=== PATIENT | male | born 1960 | race Caucasian/White ===

== ENCOUNTER 2021-10-18 13:22 | Inpatient (IN) ==
--- NOTE | 2021-10-18 14:08 | Emergency Department Note ---
Impression & Plan Hypoxia, Pulmonary emboli, SOB (shortness of breath), Pleural effusion, Anemia, Elevated troponin ED Provider Note "NAME: ERAN BERMUDEZ AGE: 61 SEX: M : 1960 ARRIVES VIA: Walk-In INFORMANT: [Patient][] ED PROVIDER(S): [Clay Fairhcild MD] CHIEF COMPLAINT: Shortness of breath HISTORY OF PRESENT ILLNESS: The patient is a 61-year-old male with metastatic lung cancer. He recently returned from the [facility] after spending 2 weeks at that facility. The patient had a complete thoracic fusion. His wound dehisced and plastic surgery needed to be involved. He had a second surgery for a newer lesion that was found on the spine. He just returned from the [facility] 3 days ago. The patient is on IV vancomycin for the next 4 to 6 weeks for wound infection. Over the weekend, the patient was noticed to have a lower O2 saturation. He was around 87%. This persisted and was again noted today. The patient was sent for evaluation. The patient states that he does not really feel short of breath although, his thinks he looks short of breath. He is pale. He has back pain of course from the surgery but this is baseline as of late. He has not had fever. No cough or congestion. No urinary complaints. The patient is on Lovenox for DVT/PE. He states he has no diagnosed lung disease at baseline. Of note, his believes he had a pleural effusion diagnosed while at the [facility]. REVIEW OF SYSTEMS: See HPI for pertinent positives and negatives. A total of ten systems were reviewed and were otherwise negative. PMHx/PSHx: See Below SOCIAL HISTORY: See Below. PHYSICAL EXAM: GENERAL: Patient is in no acute distress. HEENT: No acute trauma, normocephalic atraumatic, mucous membranes moist, no nasal congestion, no scleral icterus. NECK: No stridor, no adenopathy, no meningismus, trachea is midline. LUNGS: Decreased breath sounds at the right base, no wheezing or rhonchi, no respiratory distress. HEART: Tachycardic with a regular rhythm, no murmurs. ABDOMEN: Soft, nontender, bowel sounds positive, no peritonitis. EXTREMITIES: No cyanosis, mild bilateral pedal edema, full range of motion of al l the joints without pain or difficulty, no signs for acute trauma. NEUROLOGIC: Oriented x 3, no acute motor or sensory deficits, no focal weakness. SKIN: No rash, no jaundice, no diaphoresis. Pale. Back: His thoracic wound still has some sutures in place. No surrounding erythema that would suggest infection. No drainage DIFFERENTIAL DIAGNOSIS: Reactive airway disease, pneumonia, pleural effusion, pneumothorax, COPD, CHF, infection, cardiac ischemia, pulmonary embolism, bronchitis, musculoskeletal, gastrointestinal, as well as other pathologies. EMERGENCY DEPARTMENT COURSE/PROCEDURES: ECG: Indication was shortness of breath. The ECG shows a sinus tachycardia with a rate of 109. There is an old inferior infarct. There is no ST elevation, no PVCs. The QTc is 455. Continuous Cardiac Monitoring: An order was placed for continuous cardiac monitoring. The monitor shows a rate of 111 with sinus tachycardia. Critical Care Note: I have personally spent 38 minutes of critical care time in the direct management of this patient. This includes bedside care, interpretation of diagnostic studies, and testing, discussion with consultants, patient, and family members, and other required patient management activities. This 38 minutes is in excess of all separately billable procedures. MEDICAL DECISION MAKING: There is no leukocytosis. The patient is anemic with a hemoglobin of 9.3. The patient states his counts have been low since his surgery. There is a normal platelet count. No coagulopathy.. No renal failure or significant electrolyte abnormality. No concerning liver enzyme elevation. ECG shows a sinus tachycardia, no obvious acute ischemia. Cardiac enzyme testing x1 is elevated. This elevation could be secondary to mismatch or potentially cardiac injury. COVID test returned negative. Chest x-ray shows a large right pleural effusion. Chest CT shows the pleural effusion as well as a left-sided pulmonary embolus. I talked to the patient about his findings. He is interested in having the pleural effusion drained. I spoke to Dr. Jordan of the ICU. The patient was seen in the ED by Dr. Jordan and will undergo a thoracentesis. The patient is going to be hospitalized after his procedure. His troponin can be trended. He will need anticoagulation given the PE findings. If his hemoglobin drops further, he may require transfusion. I spoke with the patient at length, I talked to case management. The on-call hospitalist was consulted. 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 Stage 4 lung cancer Surgical History History of ankle surgery Family History Father Throat cancer Denies family history of Ovarian cancer Prostate cancer Myocardial infarction Breast cancer Colorectal cancer Social History Smoking Status: Never smoker Second Hand Exposure: Yes; Hx Alcohol Use: Yes Hx Substance Use: No Preferred Language: Hebrew Visual Impairment: No Limitations Hearing Ability: Normal marital status: Current Living Situation: Spouse current occupational status: employed Feels Safe at Home: Yes Childhood Exposure to Second-Hand Smoke: Yes Dental Care, Regularly: Yes Physical Activity Frequency: Daily Seatbelt Use: sometimes Sunscreen Use: Yes Allergies Allergies Allergy/AdvReac Type Severity Reaction Status Date / Time gabapentin AdvReac Migraine Verified 09/15/21 13:53 Home Meds Home Medications Medication Instructions Recorded Confirmed acetaminophen 500 mg tablet 1,000 mg PO Q6H PRN 10/18/21 10/18/21 diazepam 5 mg tablet 5 mg PO TID PRN 10/18/21 10/18/21 docusate sodium 100 mg capsule 100 mg PO BID PRN 10/18/21 10/18/21 enoxaparin 40 mg/0.4 mL 40 mg SUBCUT DAILY 10/18/21 10/18/21 subcutaneous syringe lidocaine 5 % topical patch 1 patch TOPICAL DAILY PRN 10/18/21 10/18/21 (Lidoderm) methocarbamol 750 mg tablet 750 mg PO QID PRN 10/18/21 10/18/21 morphine 30 mg tablet,extended 30 mg PO Q12H 10/18/21 10/18/21 release (MS Contin) omeprazole 20 mg capsule,delayed 20 mg PO DAILY 10/18/21 10/18/21 release ondansetron 4 mg disintegrating 4 mg PO Q8H PRN 10/18/21 10/18/21 tablet oxycodone 10 mg tablet 10 - 15 mg PO Q6H PRN 10/18/21 10/18/21 vancomycin 1 gram/250 mL in 1 g IV Q24H 10/18/21 10/18/21 dextrose 5 % intravenous Previous Rx's Medication Instructions Recorded osimertinib 80 mg tablet (Tagrisso) 80 mg PO DAILY #30 tab 08/02/21 duloxetine 60 mg capsule,delayed 60 mg PO DAILY #90 cap 09/15/21 release Results & Data (ED) Vital Signs Vital Signs - 24 hr 10/18/21 13:31 10/18/21 13:53 10/18/21 13:55 Temperature 36.7 C Temperature Source Oral Pulse Rate 119 H Pulse Rate [Right Apical] 111 H Pulse Rate from SpO2 Sensor Pulse Rhythm [Right Apical] Respiratory Rate 22 20 Respiratory Effort / Characteristics Respiratory Depth Blood Pressure Blood Pressure [Left Arm] 136/78 Blood Pressure Mean Blood Pressure Mean [Left Arm] 97 Blood Pressure Position [Left Arm] Lying Pulse Oximetry 92 86 L 94 Oxygen Delivery Method Room Air Room Air Nasal Cannula Nasal Cannula Oxygen Flow Rate 3 Sepsis Recent Fever Within 48 Hours No Sepsis New/Unexplained Change in Mental Status No Sepsis Action Taken by Nursing No Action Required Oxygen Flow Rate - Titration 3 Pulse Oximetry Post Tiitration 94 10/18/21 14:03 10/18/21 14:30 10/18/21 15:00 Temperature Temperature Source Pulse Rate 39 L 113 H 111 H Pulse Rate [Right Apical] Pulse Rate from SpO2 Sensor 116 H 113 H 111 H Pulse Rhythm [Right Apical] Respiratory Rate 20 25 H 24 Respiratory Effort / Characteristics Respiratory Depth Blood Pressure 125/82 129/88 Blood Pressure [Left Arm] Blood Pressure Mean 96 101 Blood Pressure Mean [Left Arm] Blood Pressure Position [Left Arm] Pulse Oximetry 93 93 93 Oxygen Delivery Method Oxygen Flow Rate Sepsis Recent Fever Within 48 Hours Sepsis New/Unexplained Change in Mental Status Sepsis Action Taken by Nursing Oxygen Flow Rate - Titration Pulse Oximetry Post Tiitration 10/18/21 15:01 10/18/21 15:03 10/18/21 15:22 Temperature Temperature Source Pulse Rate Pulse Rate [Right Apical] Pulse Rate from SpO2 Sensor Pulse Rhythm [Right Apical] Regular Respiratory Rate Respiratory Effort / Characteristics Non-Labored Respiratory Depth Normal Blood Pressure Blood Pressure [Left Arm] Blood Pressure Mean Blood Pressure Mean [Left Arm] Blood Pressure Position [Left Arm] Pulse Oximetry 93 Oxygen Delivery Method Room Air Nasal Cannula Oxygen Flow Rate 3 Sepsis Recent Fever Within 48 Hours Sepsis New/Unexplained Change in Mental Status Sepsis Action Taken by Nursing Oxygen Flow Rate - Titration Pulse Oximetry Post Tiitration 10/18/21 15:30 10/18/21 15:45 10/18/21 16:00 Temperature Temperature Source Pulse Rate 115 H 113 H 110 H Pulse Rate [Right Apical] Pulse Rate from SpO2 Sensor 115 H 111 H 110 H Pulse Rhythm [Right Apical] Respiratory Rate 23 23 23 Respiratory Effort / Characteristics Respiratory Depth Blood Pressure Blood Pressure [Left Arm] Blood Pressure Mean Blood Pressure Mean [Left Arm] Blood Pressure Position [Left Arm] Pulse Oximetry 95 93 93 Oxygen Delivery Method Oxygen Flow Rate Sepsis Recent Fever Within 48 Hours Sepsis New/Unexplained Change in Mental Status Sepsis Action Taken by Nursing Oxygen Flow Rate - Titration Pulse Oximetry Post Tiitration 10/18/21 16:15 10/18/21 16:30 10/18/21 16:45 Temperature Temperature Source Pulse Rate 106 H 106 H 108 H Pulse Rate [Right Apical] Pulse Rate from SpO2 Sensor 104 H 107 H 106 H Pulse Rhythm [Right Apical] Respiratory Rate 21 15 22 Respiratory Effort / Characteristics Respiratory Depth Blood Pressure Blood Pressure [Left Arm] Blood Pressure Mean Blood Pressure Mean [Left Arm] Blood Pressure Position [Left Arm] Pulse Oximetry 91 90 92 Oxygen Delivery Method Oxygen Flow Rate Sepsis Recent Fever Within 48 Hours Sepsis New/Unexplained Change in Mental Status Sepsis Action Taken by Nursing Oxygen Flow Rate - Titration Pulse Oximetry Post Tiitration 10/18/21 17:00 Temperature Temperature Source Pulse Rate 112 H Pulse Rate [Right Apical] Pulse Rate from SpO2 Sensor 112 H Pulse Rhythm [Right Apical] Respiratory Rate 22 Respiratory Effort / Characteristics Respiratory Depth Blood Pressure Blood Pressure [Left Arm] Blood Pressure Mean Blood Pressure Mean [Left Arm] Blood Pressure Position [Left Arm] Pulse Oximetry 91 Oxygen Delivery Method Oxygen Flow Rate Sepsis Recent Fever Within 48 Hours Sepsis New/Unexplained Change in Mental Status Sepsis Action Taken by Nursing Oxygen Flow Rate - Titration Pulse Oximetry Post Tiitration Home Medications Current Medication List: was personally reviewed by me Laboratory Data Attestation: I reviewed the patient's lab results. Result diagrams: 10/18/21 14:30 10/18/21 14:30 Lab Results 10/18/21 10/18/21 10/18/21 Range/Units 14:30 14:30 14:30 WBC 8.84 (4.8-10.8) K/ul RBC 3.40 L (4.63-6.08) M/uL Hgb 9.3 L (14.0-18.0) g/dl POC Hgb (14.0-18.0) g/dl Hct 29.6 L (40.1-51.0) % POC Hct (42-52) % MCV 87.1 (80.0-100.0) fL MCH 27.4 (25.0-34.0) pg MCHC 31.4 L (32.0-36.0) g/dL RDW Std Deviation 47.5 H (36.4-46.3) fL RDW Coeff of Sudhakar 14.8 H (11.5-14.5) % Plt Count 261 (130-400) K/uL MPV 9.3 L (9.4-12.4) fL Immature Gran % (Auto) 1.0 % Neut % (Auto) 75.8 % Lymph % (Auto) 8.5 % [place] % (Auto) 9.2 % Eos % (Auto) 4.9 % Baso % (Auto) 0.6 % Neut # (Auto) 6.71 H (1.4-6.5) K/uL Lymph # (Auto) 0.75 L (1.2-3.4) K/uL [place] # (Auto) 0.81 (0.24-0.82) K/uL Eos # (Auto) 0.43 (0-0.50) K/uL Baso # (Auto) 0.05 (0-0.2) K/uL Immature Gran # (Auto) 0.09 H (0.00-0.02) K/uL PT 11.3 (9.0-12.0) Seconds INR 1.1 (0.9-1.1) APTT 33.2 H (21.0-31.0) Seconds PTT Ratio 1.2 POC Sodium (135-144) mmol/L Sodium 137 (136-145) mmol/L POC Potassium (3.3-5.0) mmol/L Potassium 3.8 (3.5-5.1) mmol/L POC Chloride (101-112) mmol/L Chloride 101 (98-107) mmol/L Carbon Dioxide 29 (21-32) mmol/L POC Total CO2 (24-31) mmol/L Anion Gap 7 (3-11) POC Anion Gap (16-25) mmol/L POC BUN (7-18) mg/dl BUN 13 (6-23) mg/dl Creatinine 0.63 (0.6-1.4) mg/dl POC Creatinine (0.6-1.3) mg/dl Est Cr Clr Drug Dosing Not Reportable Est GFR ( Amer) 122.4 ml/min Est GFR (Non-Af Amer) 105.6 ml/min BUN/Creatinine Ratio 20.6 H (10-20) Glucose 95 (70-99(Fasting)) mg/dl POC Glucose (other) (70-99) mg/dl Calcium 8.5 (8.5-10.1) mg/dl POC Ioniz Calcium Pablo (1.12-1.32) mmol/l Magnesium 1.8 (1.7-2.4) mg/dl Total Bilirubin 0.5 (0.2-1.0) mg/dl AST 10 L (13-39) U/L ALT 8 (7-52) U/L Alkaline Phosphatase 82 (34-104) U/L Troponin I High Sens 125.3 H* (0-20) pg/ml Total Protein 5.8 L (6.0-8.3) gm/dl Albumin 3.3 L (3.4-5.0) gm/dl Globulin 2.5 (2.5-4.0) gm/dl Albumin/Globulin Ratio 1.3 (0.9-2) SARS-CoV-2, RNA, NAAT (NEGATIVE) 10/18/21 10/18/21 Range/Units 14:35 14:59 WBC (4.8-10.8) K/ul RBC (4.63-6.08) M/uL Hgb (14.0-18.0) g/dl POC Hgb 9.5 L (14.0-18.0) g/dl Hct (40.1-51.0) % POC Hct 28 L (42-52) % MCV (80.0-100.0) fL MCH (25.0-34.0) pg MCHC (32.0-36.0) g/dL RDW Std Deviation (36.4-46.3) fL RDW Coeff of Sudhakar (11.5-14.5) % Plt Count (130-400) K/uL MPV (9.4-12.4) fL Immature Gran % (Auto) % Neut % (Auto) % Lymph % (Auto) % [place] % (Auto) % Eos % (Auto) % Baso % (Auto) % Neut # (Auto) (1.4-6.5) K/uL Lymph # (Auto) (1.2-3.4) K/uL [place] # (Auto) (0.24-0.82) K/uL Eos # (Auto) (0-0.50) K/uL Baso # (Auto) (0-0.2) K/uL Immature Gran # (Auto) (0.00-0.02) K/uL PT (9.0-12.0) Seconds INR (0.9-1.1) APTT (21.0-31.0) Seconds PTT Ratio POC Sodium 137 (135-144) mmol/L Sodium (136-145) mmol/L POC Potassium 3.8 (3.3-5.0) mmol/L Potassium (3.5-5.1) mmol/L POC Chloride 97 L (101-112) mmol/L Chloride (98-107) mmol/L Carbon Dioxide (21-32) mmol/L POC Total CO2 29 (24-31) mmol/L Anion Gap (3-11) POC Anion Gap 16.0 (16-25) mmol/L POC BUN 12 (7-18) mg/dl BUN (6-23) mg/dl Creatinine (0.6-1.4) mg/dl POC Creatinine 0.6 (0.6-1.3) mg/dl Est Cr Clr Drug Dosing Est GFR ( Amer) ml/min Est GFR (Non-Af Amer) ml/min BUN/Creatinine Ratio (10-20) Glucose (70-99(Fasting)) mg/dl POC Glucose (other) 98 (70-99) mg/dl Calcium (8.5-10.1) mg/dl POC Ioniz Calcium Pablo 1.18 (1.12-1.32) mmol/l Magnesium (1.7-2.4) mg/dl Total Bilirubin (0.2-1.0) mg/dl AST (13-39) U/L ALT (7-52) U/L Alkaline Phosphatase (34-104) U/L Troponin I High Sens (0-20) pg/ml Total Protein (6.0-8.3) gm/dl Albumin (3.4-5.0) gm/dl Globulin (2.5-4.0) gm/dl Albumin/Globulin Ratio (0.9-2) SARS-CoV-2, RNA, NAAT NEGATIVE (NEGATIVE) Administered Medications Discontinued Medications Ioversol (Optiray 320 125ml) 120 ml IV ONCE ONE Stop: 10/18/21 15:17 Last Admin: 10/18/21 15:23 Dose: 120 ml Documented by: [id number] Imaging Data Radiologist's Impression: Chest CTA 10/18/21 14:00 CT angio chest PE protocol CLINICAL HISTORY: PE TECHNIQUE: Multidetector row helical CT of the chest was performed with angiographic protocol. Coronal and sagittal reformations were obtained. Coronal and sagittal MIPS were obtained from the axial data set and were submitted for review. Automated dose lowering techniques and/or adjustment according to patient size were utilized for this exam. CT DOSE: 469.21 mGy.cm Comparison: Comparison is made to CT chest 07/03/2021 FINDINGS: Lungs and pleura: There is a large right pleural effusion, increased from prior exam. There is associated atelectasis but no nonenhancing regions are seen to suggest pneumonia. There is a soft tissue density in the right upper lobe, similar in appearance to prior exam, measuring 38 x 30 mm. Questionable satellite nodules are seen. Stable 7 mm nodule in the left upper lobe (series 4 image 158). Heart and pericardium: Heart size is normal. No pericardial effusion. Vessels: Moderate atherosclerotic changes in the aorta and coronary arteries. There is a segmental/subsegmental pulmonary embolus in the left upper lobe (image 154). Mediastinum and maribell: Subcentimeter lymph nodes are seen. Chest wall and lower neck: Unremarkable. Abdomen: Unremarkable. Bones: Posterior fixation hardware is seen throughout the spine. A few vertebral levels are characterized by destruction with soft tissue mass. In addition, there are several lytic foci in the skeleton. IMPRESSION: 1. A segmental/subsegmental pulmonary embolus is in the left upper lobe. No additional pulmonary emboli are seen. 2. Large right pleural effusion, increased from prior exam. 3. No evidence of pneumonia. 4. Redemonstration of right upper lobe soft tissue density compatible with malignancy. There are questionable satellite nodules and a stable 7 mm nodule in left upper lobe, of uncertain significance although metastatic disease cannot be excluded. Subcentimeter mediastinal lymph nodes are seen, unchanged from prior exam. 5. Numerous lytic lesions are seen in the thoracic spine with pathologic fractures, bridged by fixation hardware. ACT 112: Negative or not required by law. Electronically signed by: Reinier Aguayo M.D. 10/18/2021 3:44 PM Chest X-Ray 10/18/21 14:00 XR chest 1V portable CLINICAL HISTORY: SOB TECHNIQUE: Single frontal radiograph of the chest was obtained. Comparison: Comparison is made to rib series 03/23/2021 FINDINGS: A right PICC terminates in the cavoatrial junction. Interval placement of extensive thoracic spinal fixation hardware. The cardiomediastinal silhouette is obscured. A tortuous aorta is again seen. Interval development of right large pleural effusion. The left lung is clear. Right upper lung density cannot be excluded. No evidence of pleural effusion or pneumothorax. IMPRESSION: Interval development of a large right pleural effusion. Right upper lung density corresponding to previously noted mass cannot be excluded. In the right lower lung there is atelectasis with or without superimposed aspiration/pneumonia. ACT 112: Negative or not required by law. Electronically signed by: Reinier Aguayo M.D. 10/18/2021 3:00 PM Discharge Plan Visit Data Chief Complaint: Shortness of Breath/Dyspnea Stated Complaint: SOB,LUNG CA,RECENT BACK SURG ED Provider: Clay Fairchild Discharge Problem: Hypoxia, Pulmonary emboli, SOB (shortness of breath), Pleural effusion, Anemia, Elevated troponin Patient Disposition: Admitted As Inpatient Condition: Fair Forms Stand Alone Forms: [facility] Prescriptions Prescriptions: No Action duloxetine 60 mg capsule,delayed release(DR/EC) 60 mg PO DAILY Qty: 90 RF: 1 Tagrisso 80 mg tablet 80 mg PO DAILY Qty: 30 RF: 0 acetaminophen 500 mg Tablet 1,000 mg PO Q6H PRN (Reason: Mild Pain (Scale Score 1-4)) RF: 0 methocarbamol 750 mg Tablet 750 mg PO QID PRN (Reason: Muscle Spasm) RF: 0 enoxaparin 40 mg/0.4 mL Syringe 40 mg SUBCUT DAILY RF: 0 morphine [MS Contin] 30 mg Tablet Extended Release 30 mg PO Q12H RF: 0 omeprazole 20 mg Capsule,Delayed Release(Dr/Ec) 20 mg PO DAILY RF: 0 oxycodone 10 mg tablet 10 - 15 mg PO Q6H PRN (Reason: pain) RF: 0 diazepam 5 mg Tablet 5 mg PO TID PRN (Reason: muscle spasms) RF: 0 docusate sodium 100 mg Capsule 100 mg PO BID PRN (Reason: Constipation) RF: 0 ondansetron 4 mg Tablet,Disintegrating 4 mg PO Q8H PRN (Reason: Nausea) RF: 0 lidocaine [Lidoderm] 5 % Adhesive Patch,Medicated 1 patch TOPICAL DAILY PRN (Reason: Pain) RF: 0 vancomycin in dextrose 5 % 1 gram/250 mL Solution 1 g IV Q24H RF: 0 Referrals Referrals: Beatriz East MD [Primary Care Provider] -
[2021-10-18 14:46] LABS: Basophils # (auto) 0.05 K/uL (0-0.2); Basophils % (auto) 0.6 %; Eosinophils # (auto) 0.43 K/uL (0-0.50); Eosinophils % (auto) 4.9 %; Hematocrit (blood only) 29.6 % (40.1-51.0); Hemoglobin 9.3 g/dl (14.0-18.0); Immature Granulocytes # (auto) 0.09 K/uL (0.00-0.02); Lymphocytes # (auto) 0.75 K/uL (1.2-3.4); Lymphocytes % (auto) 8.5 %; Mean Corpuscular Hemoglobin 27.4 pg (25.0-34.0); Mean Corpuscular Hgb Conc 31.4 g/dL (32.0-36.0); Mean Corpuscular Volume 87.1 fL (80.0-100.0); Mean Platelet Volume 9.3 fL (9.4-12.4); Monocytes # (auto) 0.81 K/uL (0.24-0.82); Monocytes % (auto) 9.2 %; Neutrophils # (auto) 6.71 K/uL (1.4-6.5); Neutrophils % (auto) 75.8 %; Platelet Count 261 K/uL (130-400); RDW Coefficient of Variation 14.8 % (11.5-14.5); RDW Standard Deviation 47.5 fL (36.4-46.3); White Blood Count 8.84 K/ul (4.8-10.8)
[2021-10-18 14:53] LABS: iSTAT Creatinine 0.6 mg/dl (0.6-1.3); iSTAT Hemoglobin 9.5 g/dl (14.0-18.0); iSTAT Ionized Calcium 1.18 mmol/l (1.12-1.32); iSTAT Potassium 3.8 mmol/L (3.3-5.0)
--- NOTE | 2021-10-18 15:01 | XRay Report ---
XR chest 1V portable CLINICAL HISTORY: SOB TECHNIQUE: Single frontal radiograph of the chest was obtained. Comparison: Comparison is made to rib series 03/23/2021 FINDINGS: A right PICC terminates in the cavoatrial junction. Interval placement of extensive thoracic spinal f ixation hardware. The cardiomediastinal silhouette is obscured. A tortuous aorta is again seen. Inter josh development of right large pleural effusion. The left lung is clear. Right upper lung density can not be excluded. No evidence of pleural effusion or pneumothorax. IMPRESSION: Interval development of a large right pleural effusion. Right upper lung density corresponding to pre viously noted mass cannot be excluded. In the right lower lung there is atelectasis with or without s uperimposed aspiration/pneumonia. ACT 112: Negative or not required by law. Electronically signed by: Reinier Aguayo M.D. 10/18/2021 3:00 PM
[2021-10-18 15:05] LABS: Alanine Aminotransferase 8 U/L (7-52); Albumin Globulin Ratio 1.3 (0.9-2); Albumin Level 3.3 gm/dl (3.4-5.0); Alkaline Phosphatase 82 U/L (34-104); Anion Gap 7 (3-11); Aspartate Aminotransferase 10 U/L (13-39); BUN Creatinine Ratio 20.6 (10-20); Bilirubin,Total 0.5 mg/dl (0.2-1.0); Blood Urea Nitrogen 13 mg/dl (6-23); Calcium 8.5 mg/dl (8.5-10.1); Carbon Dioxide 29 mmol/L (21-32); Chloride 101 mmol/L (98-107); Est GFR (African American) 122.4 ml/min; Est GFR (Non-African American) 105.6 ml/min; Globulin 2.5 gm/dl (2.5-4.0); Glucose 95 mg/dl (70-99(Fasting)); Magnesium 1.8 mg/dl (1.7-2.4); Potassium 3.8 mmol/L (3.5-5.1); Sodium 137 mmol/L (136-145); Total Protein 5.8 gm/dl (6.0-8.3)
[2021-10-18] MEDS ORDERED: OPTIRAY 320 125ml IV ONE (15:16)
[2021-10-18 15:24] LABS: INR 1.1 (0.9-1.1); Partial Thromboplastin Ratio 1.2; Partial Thromboplastin Time 33.2 Seconds (21.0-31.0); Prothrombin Time 11.3 Seconds (9.0-12.0)
[2021-10-18 15:33] LABS: Troponin I High Sensitivity 125.3 pg/ml (0-20)
--- NOTE | 2021-10-18 15:45 | CT Scan Report ---
CT angio chest PE protocol CLINICAL HISTORY: PE TECHNIQUE: Multidetector row helical CT of the chest was performed with angiographic protocol. Payne l and sagittal reformations were obtained. Coronal and sagittal MIPS were obtained from the axial marcell a set and were submitted for review. Automated dose lowering techniques and/or adjustment according to patient size were utilized for this exam. CT DOSE: 469.21 mGy.cm Comparison: Comparison is made to CT chest 07/03/2021 FINDINGS: Lungs and pleura: There is a large right pleural effusion, increased from prior exam. There is associ ated atelectasis but no nonenhancing regions are seen to suggest pneumonia. There is a soft tissue de nsity in the right upper lobe, similar in appearance to prior exam, measuring 38 x 30 mm. Questionabl e satellite nodules are seen. Stable 7 mm nodule in the left upper lobe (series 4 image 158). Heart and pericardium: Heart size is normal. No pericardial effusion. Vessels: Moderate atherosclerotic changes in the aorta and coronary arteries. There is a segmental/murphy bsegmental pulmonary embolus in the left upper lobe (image 154). Mediastinum and maribell: Subcentimeter lymph nodes are seen. Chest wall and lower neck: Unremarkable. Abdomen: Unremarkable. Bones: Posterior fixation hardware is seen throughout the spine. A few vertebral levels are character ized by destruction with soft tissue mass. In addition, there are several lytic foci in the skeleton. IMPRESSION: 1. A segmental/subsegmental pulmonary embolus is in the left upper lobe. No additional pulmonary emb layla are seen. 2. Large right pleural effusion, increased from prior exam. 3. No evidence of pneumonia. 4. Redemonstration of right upper lobe soft tissue density compatible with malignancy. There are que stionable satellite nodules and a stable 7 mm nodule in left upper lobe, of uncertain significance al though metastatic disease cannot be excluded. Subcentimeter mediastinal lymph nodes are seen, unchang ed from prior exam. 5. Numerous lytic lesions are seen in the thoracic spine with pathologic fractures, bridged by fixat ion hardware. ACT 112: Negative or not required by law. Electronically signed by: Reinier Aguayo M.D. 10/18/2021 3:44 PM
[2021-10-18] MEDS ORDERED: fentaNYL citrate 100 MCG/2 ML VIAL IV ONE (17:59)
--- NOTE | 2021-10-18 18:16 | Procedure Note ---
Procedure Note Date of Service October 18, 2021 Note Procedure Date: noted above Procedure: Thoracentesis Pre-procedure Diagnosis: Acute hypoxic respiratory failure, right adenocarcinoma of the lung, right pleural effusion, acute on chronic pulmonary embolism Post-procedure Diagnosis: same as above Prior to Procedure: Informed Consent: The risks, benefits, indications, potential complications, and alternatives were explained to the patient, his , his sister and niece and informed consent obtained. Attending Staff: Iron Jordan DO Resident/Physician Evaporator Operator Molasses: Ata Aguayo Indications: The patient is a 61-year-old male patient with right-sided pleural effusion status post recent spinal rodding, known history of pulmonary embolism on prophylactic anticoagulation, metastatic adenocarcinoma of the lung requiring thoracentesis. We discussed risks and benefits including temporary catheter placement for continued pleural drainage should there be infection versus loculation. Concern of repeat procedures in case there is infection. Causing bleeding that may require surgical intervention. The identity of the patient was confirmed and a bedside time out was performed. Description of Procedure: Patient positioned, the right posterior axillary line was prepped with chlorhexidine and draped in usual sterile fashion. Ultrasound guidance was used and appropriate fluid pocket was identified. 4 mL of 1% Lidocaine without epinephrine was used to anesthetize the area. A needle was introduced into the pleural space over the superior margin of the rib with care and fluid removed and sent for analysis. Fluid was removed. Patient started to experience mild cough and the procedure was discontinued and the catheter was removed. Total Fluid Removed: 2000 ml Color of Fluid: Sanguinous Sent for: Gram Stain, culture, cell count, glucose, protein, LDH, pleural pH Complications: None apparent Estimated blood loss: None Post procedure chest x-ray has been reviewed, no postprocedural pneumothorax Coding CPT Codes Pulmonary/Thoracic - Pulmonary and Thoracic: 01885 Thoracentesis w/o imaging ([id number]) [facility] [place] Procedure Codes (Charges) Pulmonary/Thoracic Procedure 1: Pulmonary and Thoracic: 73364 Thoracentesis w/o imaging
[2021-10-18] MEDS ORDERED: MoRPHine SULFATE CR 15 MG TABCR PO STA (18:48)
--- NOTE | 2021-10-18 19:10 | XRay Report ---
SINGLE VIEW CHEST CLINICAL HISTORY: Status post thoracentesis FINDINGS: An AP, portable, semierect chest radiograph is compared to performed earlier the same day . A right PICC line is unchanged in position. The heart is mildly enlarged. There is a small residual right pleural effusion with bibasilar scarring/atelectasis. No airspace consolidation is see n typical for pneumonia. Loculated fluid is again seen in the right upper lobe lung the major fissure . No pneumothorax is identified. The bony thorax is grossly intact. Extensive spinal fusion hardware is in place IMPRESSION: 1. No pneumothorax is identified post procedure. 2. There is a small residual right pleural effusion and bibasilar atelectasis ACT 112: Negative or not required by law. Electronically signed by: Clay Neri M.D. 10/18/2021 7:09 PM
[2021-10-18] MEDS: LIDOCAINE 5% 1 PATCH TD SCH (19:19)
[2021-10-18 19:30] LABS: Glucose Pleural Fluid < 10 mg/dl; LDH Pleural Fluid 956 U/L; Total Protein Pleural Fluid 3.9 gm/dl
[2021-10-18] MEDS ORDERED: MoRPHine SULFATE 4 MG/ML 1 ML CARP\\VIAL IV STA (19:39)
--- NOTE | 2021-10-18 19:41 | History & Physical Report ---
Date of Service October 18, 2021 Assessment & Plan (1) Pleural effusion: Plan: Acute on chronic- increased since June with compressive atelectasis - Thoracenteses completed by Dr. Jordan through EMD consultation - 2Liters drained- await cytology and cultures - No postoperative pneumothorax or pulmonary edema - Pulmonary consultation appreciated - Can also follow up with [facility] (2) Pulmonary embolism: Plan: Acute on Chronic- with IVC filter placement as well as reported Lower extremity DVT during hospitalization at - With new PE in left upper lobe segmental and subsegmental - Thoracic spine surgery -14 of October- Xarelto has been hold since that time - IVC filter in place to prevent large PE resulting in mortality - Could discuss with for re-initiation of anticoagulation in current setting with PE with IVC filter (3) S/P IVC filter: Plan: As above - placed at plan removal in 6 months reported - as above (4) Elevated troponin: Plan: Routinely drawn in the EMD elevated at 125 - no acute ST elevation no chest pain complaints - likely secondary to pulmonary stress, dyspnea and hypoxia type II demand - trend HScTNI now and then in AM pending results (5) Spinal cord compression 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: Plan: As above- resected and biopsied 09-14 (6) Cancer related pain: Plan: Home regimen is keeping patient comfortable as long as he is consistent - Continue tylenol, Lidocaine patches, Oxycodone 15mg q6 prn, MS extended 30mg q12 - Valium 5mg PO prn muscle spasms (7) 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 Receives majority of his cancer care at [facility], PE, DVT, IVC filter placement, Thoracic spine surgery at [facility] August 2021, wound evisceration 09/29 with wound vac and PICC placement, 13 October- Lumbar tumor resection/biopsy and IVC filter placement. He comes to the EMD today for complaints of dyspnea. He was noted to have increase in right sided pleural effusion, this was compared to his scan done in June 2021. This was drained in the EMD by Dr. Jordan for 2 Liters of serous/sang fluid. Testing is pending. The patient also had a CTA of the chest completed which noted a left upper lobe segmental/subsegmental PE. He also had routine labs drawn which included a HScTNI for dyspnea by [facility]. This was elevated to 125.3. His ECG is without acute ST elevation and no symptoms of chest pain. He is on maintenance therapy of Osimertinib. Patient had PE noted in 03/30 and was placed on Xarelto at that time with his workup and cancer diagnosis. This was started in the setting of worsening cervical and thoracic back pain. He had his lung biopsy and bronchoscopy at [facility]. He had repeat CT scan done in June which did not note any PE, he continued with his upper spine surgery in September this was complicated by above, with wound evisceration requiring wound-vac placement and PICC placement for empiric Vancomycin therapy. While that was ongoing they noted lumbar mass/lesion which was biopsied and resected in October 13. He also had IVC placed at that time with plan to remove in 6 months,as they noted lower extremity VTE during that stay. He was discharged on DVT/PE Lovenox for further prevention. For his chronic back pain he is on Morphine Extended release 30mg q12 and with breakthrough of oxycodone 10-15 mg every 6 hours as needed. For adjunctive therapy he is receiving Tylenol, lidocaine patches, which he feels are effective and has Valium and/or Robaxin at home for muscle spasms. He does not use the Robaxin if he takes the Valium. Oncologist is Dr. Mosqueda with [facility]. Pressley His COVID test on admission is: NEGATIVE Allergies Allergy/AdvReac Type Severity Reaction Status Date / Time gabapentin AdvReac Migraine Verified 09/15/21 13:53 Home Medications Medication Instructions Recorded Confirmed Type osimertinib 80 mg tablet (Tagrisso) 80 mg PO DAILY #30 tab 08/02/21 10/18/21 Rx duloxetine 60 mg capsule,delayed 60 mg PO DAILY #90 cap 09/15/21 10/18/21 Rx release acetaminophen 500 mg tablet 1,000 mg PO Q6H PRN 10/18/21 10/18/21 History diazepam 5 mg tablet 5 mg PO TID PRN 10/18/21 10/18/21 History docusate sodium 100 mg capsule 100 mg PO BID PRN 10/18/21 10/18/21 History enoxaparin 40 mg/0.4 mL 40 mg SUBCUT DAILY 10/18/21 10/18/21 History subcutaneous syringe lidocaine 5 % topical patch 1 patch TOPICAL DAILY PRN 10/18/21 10/18/21 History (Lidoderm) methocarbamol 750 mg tablet 750 mg PO QID PRN 10/18/21 10/18/21 History morphine 30 mg tablet,extended 30 mg PO Q12H 10/18/21 10/18/21 History release (MS Contin) omeprazole 20 mg capsule,delayed 20 mg PO DAILY 10/18/21 10/18/21 History release ondansetron 4 mg disintegrating 4 mg PO Q8H PRN 10/18/21 10/18/21 History tablet oxycodone 10 mg tablet 10 - 15 mg PO Q6H PRN 10/18/21 10/18/21 History vancomycin 1 gram/250 mL in 1 g IV Q24H 10/18/21 10/18/21 History dextrose 5 % intravenous Past Med/Surg History Medical History (Updated 10/18/21 @ 19:27 by DIRK Rincon) 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 Bone metastases Pleural effusion Pulmonary embolism Spinal cord compression 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 Stage 4 lung cancer Surgical History (Updated 10/18/21 @ 19:21 by DIRK Rincon) History of ankle surgery S/P IVC filter Family History Father Throat cancer Denies family history of Ovarian cancer Prostate cancer Myocardial infarction Breast cancer Colorectal cancer Social History Smoking Status: Never smoker Second Hand Exposure: Yes; Hx Alcohol Use: Yes Hx Substance Use: No Preferred Language: Spanish Visual Impairment: No Limitations Hearing Ability: Normal marital status: Current Living Situation: Spouse current occupational status: employed Feels Safe at Home: Yes Childhood Exposure to Second-Hand Smoke: Yes Dental Care, Regularly: Yes Physical Activity Frequency: Daily Seatbelt Use: sometimes Sunscreen Use: Yes Review of Systems Review of Systems: REVIEW OF SYSTEMS: Constitutional: No fever, sweats or chills Eyes: No diplopia, no worsening or blurred vision ENT: normal hearing, no trouble swallowing Respiratory: (+) dyspnea with exertion, cough, sputum, Cardiovascular: (+) lower extremity edema, No chest pain, tightness or palpi tations Abdomen: No pain, nausea, vomiting, diarrhea or constipation Musculoskeletal: (+) joint pain Neurologic: No weakness, numbness/tingling, or balance problems Psychiatric: No anxiety or depression Skin: No rash or itch Physical Exam Physical Exam: PHYSICAL EXAM: General: awake, alert, no apparent distress Head: Normocephalic, atraumatic ENT: PERRLA, EOMI, no pharyngeal exudate, mucous membranes moist Neuro: AAO x 3, speech clear and appropriate, strength intact bilaterally 5/5, sensation intact and equal all extremities and dermatomes, no pronator drift Chest: equal rise and fall of the chest, no accessory muscle use, no heaves or thrills, decreased in the bases bilaterally Cardiac: Regular rate and rhythm, telemetry reviewed, skin warm dry, cap refill <3 seconds, peripheral pulses +2 no JVD, no murmur, no edema GI: NABS x 4 quadrants, soft, nontender to palpation, no rebound, guarding or tenderness : Spontaneously voiding, no pain, no CVA tenderness, Psych: Normal mood and affect Skin: scar to back healing, PICC line dressing intact Results & Data Results & Data ([facility]) Vital Signs (Past 12 Hours) Vital Signs Temp Pulse Pulse Resp BP BP Pulse Ox 10/18/21 17:00 112 H 22 91 10/18/21 16:45 108 H 22 92 10/18/21 16:30 106 H 15 90 10/18/21 16:15 106 H 21 91 10/18/21 16:00 110 H 23 93 10/18/21 15:45 113 H 23 93 10/18/21 15:30 115 H 23 95 10/18/21 15:03 93 10/18/21 15:00 111 H 24 129/88 93 10/18/21 14:30 113 H 25 H 125/82 93 10/18/21 14:03 39 L 20 93 10/18/21 13:55 111 H 20 136/78 94 10/18/21 13:53 86 L 10/18/21 13:31 36.7 C 119 H 22 92 Laboratory Results Abnormal lab results 10/18/21 10/18/21 10/18/21 Range/Units 14:30 14:30 14:30 RBC 3.40 L (4.63-6.08) M/uL Hgb 9.3 L (14.0-18.0) g/dl POC Hgb (14.0-18.0) g/dl Hct 29.6 L (40.1-51.0) % POC Hct (42-52) % MCHC 31.4 L (32.0-36.0) g/dL RDW Std Deviation 47.5 H (36.4-46.3) fL RDW Coeff of Sudhakar 14.8 H (11.5-14.5) % MPV 9.3 L (9.4-12.4) fL Neut # (Auto) 6.71 H (1.4-6.5) K/uL Lymph # (Auto) 0.75 L (1.2-3.4) K/uL Immature Gran # (Auto) 0.09 H (0.00-0.02) K/uL APTT 33.2 H (21.0-31.0) Seconds POC Chloride (101-112) mmol/L BUN/Creatinine Ratio 20.6 H (10-20) AST 10 L (13-39) U/L Troponin I High Sens 125.3 H* (0-20) pg/ml Total Protein 5.8 L (6.0-8.3) gm/dl Albumin 3.3 L (3.4-5.0) gm/dl 10/18/21 Range/Units 14:35 RBC (4.63-6.08) M/uL Hgb (14.0-18.0) g/dl POC Hgb 9.5 L (14.0-18.0) g/dl Hct (40.1-51.0) % POC Hct 28 L (42-52) % MCHC (32.0-36.0) g/dL RDW Std Deviation (36.4-46.3) fL RDW Coeff of Sudhakar (11.5-14.5) % MPV (9.4-12.4) fL Neut # (Auto) (1.4-6.5) K/uL Lymph # (Auto) (1.2-3.4) K/uL Immature Gran # (Auto) (0.00-0.02) K/uL APTT (21.0-31.0) Seconds POC Chloride 97 L (101-112) mmol/L BUN/Creatinine Ratio (10-20) AST (13-39) U/L Troponin I High Sens (0-20) pg/ml Total Protein (6.0-8.3) gm/dl Albumin (3.4-5.0) gm/dl Diagnostic Findings Chest CTA 10/18/21 14:00 CT angio chest PE protocol CLINICAL HISTORY: PE TECHNIQUE: Multidetector row helical CT of the chest was performed with angiographic protocol. Coronal and sagittal reformations were obtained. Coronal and sagittal MIPS were obtained from the axial data set and were submitted for review. Automated dose lowering techniques and/or adjustment according to patient size were utilized for this exam. CT DOSE: 469.21 mGy.cm Comparison: Comparison is made to CT chest 07/03/2021 FINDINGS: Lungs and pleura: There is a large right pleural effusion, increased from prior exam. There is associated atelectasis but no nonenhancing regions are seen to suggest pneumonia. There is a soft tissue density in the right upper lobe, similar in appearance to prior exam, measuring 38 x 30 mm. Questionable satellite nodules are seen. Stable 7 mm nodule in the left upper lobe (series 4 image 158). Heart and pericardium: Heart size is normal. No pericardial effusion. Vessels: Moderate atherosclerotic changes in the aorta and coronary arteries. There is a segmental/subsegmental pulmonary embolus in the left upper lobe (image 154). Mediastinum and maribell: Subcentimeter lymph nodes are seen. Chest wall and lower neck: Unremarkable. Abdomen: Unremarkable. Bones: Posterior fixation hardware is seen throughout the spine. A few vertebral levels are characterized by destruction with soft tissue mass. In addition, there are several lytic foci in the skeleton. IMPRESSION: 1. A segmental/subsegmental pulmonary embolus is in the left upper lobe. No additional pulmonary emboli are seen. 2. Large right pleural effusion, increased from prior exam. 3. No evidence of pneumonia. 4. Redemonstration of right upper lobe soft tissue density compatible with malignancy. There are questionable satellite nodules and a stable 7 mm nodule in left upper lobe, of uncertain significance although metastatic disease cannot be excluded. Subcentimeter mediastinal lymph nodes are seen, unchanged from prior exam. 5. Numerous lytic lesions are seen in the thoracic spine with pathologic fractures, bridged by fixation hardware. ACT 112: Negative or not required by law. Electronically signed by: Reinier Aguayo M.D. 10/18/2021 3:44 PM Chest X-Ray 10/18/21 14:00 XR chest 1V portable CLINICAL HISTORY: SOB TECHNIQUE: Single frontal radiograph of the chest was obtained. Comparison: Comparison is made to rib series 03/23/2021 FINDINGS: A right PICC terminates in the cavoatrial junction. Interval placement of extensive thoracic spinal fixation hardware. The cardiomediastinal silhouette is obscured. A tortuous aorta is again seen. Interval development of right large pleural effusion. The left lung is clear. Right upper lung density cannot be excluded. No evidence of pleural effusion or pneumothorax. IMPRESSION: Interval development of a large right pleural effusion. Right upper lung density corresponding to previously noted mass cannot be excluded. In the right lower lung there is atelectasis with or without superimposed aspiration/pneumonia. ACT 112: Negative or not required by law. Electronically signed by: Reinier Aguayo M.D. 10/18/2021 3:00 PM Chest X-Ray 10/18/21 17:59 SINGLE VIEW CHEST CLINICAL HISTORY: Status post thoracentesis FINDINGS: An AP, portable, semierect chest radiograph is compared to performed earlier the same day 10/18/2021. A right PICC line is unchanged in position. The heart is mildly enlarged. There is a small residual right pleural effusion with bibasilar scarring/atelectasis. No airspace consolidation is seen typical for pneumonia. Loculated fluid is again seen in the right upper lobe lung the major fissure. No pneumothorax is identified. The bony thorax is grossly intact. Extensive spinal fusion hardware is in place IMPRESSION: 1. No pneumothorax is identified post procedure. 2. There is a small residual right pleural effusion and bibasilar atelectasis ACT 112: Negative or not required by law. Electronically signed by: Clay Neri M.D. 10/18/2021 7:09 PM Medications Administered Lidocaine (Lidocaine 5% 1 Patch) 1 patch TD Q24H GARRY Stop: 11/17/21 18:59 Last Admin: 10/18/21 19:19 Dose: 1 patch Documented by: [id number] Discontinued Medications Fentanyl Citrate (Fentanyl Citrate 100 Mcg/2 Ml Vial) 50 mcg IV NOW ONE Stop: 10/18/21 18:00 Last Admin: 10/18/21 18:25 Dose: 50 mcg Documented by: [id number] Ioversol (Optiray 320 125ml) 120 ml IV ONCE ONE Stop: 10/18/21 15:17 Last Admin: 10/18/21 15:23 Dose: 120 ml Documented by: [id number] Morphine Sulfate (Morphine Sulfate Cr 15 Mg Tabcr) 30 mg PO NOW STA Stop: 10/18/21 18:49 Last Admin: 10/18/21 19:19 Dose: 30 mg Documented by: [id number] Home Medications osimertinib 80 mg tablet (Tagrisso) 80 mg PO DAILY #30 tab 08/02/21 [Rx Confirmed 10/18/21] duloxetine 60 mg capsule,delayed release 60 mg PO DAILY #90 cap 09/15/21 [Rx Confirmed 10/18/21] acetaminophen 500 mg tablet 1,000 mg PO Q6H PRN 10/18/21 [History Confirmed 10/18/21] diazepam 5 mg tablet 5 mg PO TID PRN 10/18/21 [History Confirmed 10/18/21] docusate sodium 100 mg capsule 100 mg PO BID PRN 10/18/21 [History Confirmed 10/18/21] enoxaparin 40 mg/0.4 mL subcutaneous syringe 40 mg SUBCUT DAILY 10/18/21 [History Confirmed 10/18/21] lidocaine 5 % topical patch (Lidoderm) 1 patch TOPICAL DAILY PRN 10/18/21 [History Confirmed 10/18/21] methocarbamol 750 mg tablet 750 mg PO QID PRN 10/18/21 [History Confirmed 10/18/21] morphine 30 mg tablet,extended release (MS Contin) 30 mg PO Q12H 10/18/21 [History Confirmed 10/18/21] omeprazole 20 mg capsule,delayed release 20 mg PO DAILY 10/18/21 [History Confirmed 10/18/21] ondansetron 4 mg disintegrating tablet 4 mg PO Q8H PRN 10/18/21 [History Confirmed 10/18/21] oxycodone 10 mg tablet 10 - 15 mg PO Q6H PRN 10/18/21 [History Confirmed 10/18/21] vancomycin 1 gram/250 mL in dextrose 5 % intravenous 1 g IV Q24H 10/18/21 [History Confirmed 10/18/21] Active Medications Lidocaine (Lidocaine 5% 1 Patch) 1 patch TD Q24H [facility] Stop: 11/17/21 18:59 Last Admin: 10/18/21 19:19 Dose: 1 patch Documented by: Miscellaneous (Remove Lidoderm Patch) 1 each N/A DAILY@0700 [facility] Stop: 11/18/21 06:59 ECG Additional Comments: Sinus tachycardia Left axis deviation Inferior infarct , age undetermined Possible Anterior infarct (cited on or before 03-JUL-2021) Abnormal ECG When compared with ECG of 03-JUL-2021 03:05, Questionable change in initial forces of Lateral leads Code Status & VTE Plan Code Status CODE: DNR/DNI VTE: TEDS, Lovenox 40mg subq daily VTE Prophylaxis Plan VTE Prophylaxis will be ordered: Yes PG Care Time/CCT Total # of Minutes Spent Total Time Spent with Patient: Total time spent is greater than 50% in coordination of care (as documented) at patient's floor/unit and/or counseling patient: Coding Level of Care Code 62769 Initial Inpt Care Lvl 3 Diagnoses S/P IVC filter Z95.828 Pulmonary embolism I26.99 Elevated troponin R77.8 Spinal cord compression 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
[2021-10-18 19:44] LABS: Albumin Level 3.1 gm/dl (3.4-5.0); Bilirubin,Total 0.6 mg/dl (0.2-1.0)
[2021-10-18 20:54] LABS: Appearance Pleural Fluid Cloudy; Color Pleural Fluid Amber; RBC Pleural Fluid (A) 15000 /uL; WBC Pleural Fluid (A) 2327 /uL
[2021-10-18] MEDS ORDERED: DOCUSATE SODIUM 100 MG CAP PO PRN (21:29)
[2021-10-18] MEDS ORDERED: ONDANSETRON INJ 2 MG/ML 2 ML VIAL IV PRN (21:29)
[2021-10-18] MEDS ORDERED: ONDANSETRON 4 MG OD TAB PO PRN (21:29)
[2021-10-18] MEDS ORDERED: LIDOCAINE 5% 1 PATCH TD SCH (21:29)
[2021-10-18] MEDS ORDERED: ACETAMINOPHEN 325 MG TAB PO PRN (21:29)
[2021-10-18] MEDS ORDERED: diazePAM 5 MG TABLET PO PRN (21:29)
[2021-10-18] MEDS: oxyCODONE HCL IR 5 MG TAB (IMMEDIATE RELEASE) PO PRN (21:42)
[2021-10-18] MEDS ORDERED: VANCOMYCIN CONSULT ACTIVE PRN (21:46)
--- NOTE | 2021-10-18 21:48 | Pharmacy Report ---
Pharmacy PK ABX Note - Date of Service October 18, 2021 - Assessment and Plan Assessment 61 year old M receiving started Vancomycin on 10/07/21 secondary to a post-op spinal infection. * PMHx significant for lung cancer with mets. * Has been receiving 1 g IV every 24 hours as an outpatient. Received today's dose around 1000 prior to admission. Plan Vancomycin * Will order a random level with AM labs to assess current vancomycin dosing Pharmacy will continue to follow and will adjust dose/frequency as necessary. Thank you. Pharmacy has transitioned to AUC monitoring for vancomycin. AUC/LINDA is the preferred PK/PD target and is associated with decreased risk of nephrotoxicity compared to traditional trough targets.
[2021-10-18 23:06] LABS: Eosinophils, Fluid 0 %; Lymphocytes, Fluid 33 %; Mono,Macrophage,Mesothelial 62 %; Neutrophils, Fluid 5 %
[2021-10-19] MEDS: HYDROmorphone INJ 0.5 MG/0.5 ML SYR IV PRN (02:19)
[2021-10-19] MEDS: oxyCODONE HCL IR 5 MG TAB (IMMEDIATE RELEASE) PO PRN ×3 (05:32→19:49)
[2021-10-19] MEDS: MoRPHine SULFATE CR 15 MG TABCR PO SCH ×2 (05:33→17:45)
[2021-10-19 07:58] LABS: Basophils # (auto) 0.04 K/uL (0-0.2); Basophils % (auto) 0.5 %; Eosinophils % (auto) 3.8 %; Hematocrit (blood only) 28.3 % (40.1-51.0); Hemoglobin 8.8 g/dl (14.0-18.0); Immature Granulocytes # (auto) 0.07 K/uL (0.00-0.02); Immature Granulocytes % (auto) 0.9 %; Lymphocytes # (auto) 0.43 K/uL (1.2-3.4); Lymphocytes % (auto) 5.4 %; Mean Corpuscular Hemoglobin 26.3 pg (25.0-34.0); Mean Corpuscular Hgb Conc 31.1 g/dL (32.0-36.0); Mean Corpuscular Volume 84.5 fL (80.0-100.0); Mean Platelet Volume 9.7 fL (9.4-12.4); Monocytes # (auto) 0.47 K/uL (0.24-0.82); Monocytes % (auto) 5.9 %; Neutrophils # (auto) 6.67 K/uL (1.4-6.5); Neutrophils % (auto) 83.5 %; Platelet Count 249 K/uL (130-400); RDW Coefficient of Variation 14.8 % (11.5-14.5); RDW Standard Deviation 45.9 fL (36.4-46.3); Red Blood Count 3.35 M/uL (4.63-6.08); White Blood Count 7.98 K/ul (4.8-10.8)
[2021-10-19 08:43] LABS: Calcium 8.4 mg/dl (8.5-10.1); Creatinine Clr Calc Pharmacy 157.8 ml/min; Est GFR (African American) 126.6 ml/min; Est GFR (Non-African American) 109.3 ml/min; Magnesium 1.8 mg/dl (1.7-2.4); Potassium 3.8 mmol/L (3.5-5.1)
[2021-10-19 08:50] LABS: Troponin I High Sensitivity 148.8 pg/ml (0-20)
--- NOTE | 2021-10-19 08:54 | XRay Report ---
XR chest 1V portable CLINICAL HISTORY: evaluate effusion pleural right TECHNIQUE: Single frontal radiograph of the chest was obtained. Comparison: Comparison is made to chest radiograph 10/18/2021 and CTA chest 10/18/2021 FINDINGS: Posterior thoracic fixation hardware is seen. Stable position of right PICC. The cardiomediastinal si lhouette is stable. Faint right airspace opacity is new from prior exam. Right upper lung density is unchanged. Interval increased conspicuity of a small right pleural effusion. IMPRESSION: Interval increase in conspicuity of a small right pleural effusion. Faint underlying airspace opacity may represent atelectasis with or without superimposed aspiration/pneumonia. Interval stability of r ight upper lung density compatible with known malignancy. ACT 112: Negative or not required by law. Electronically signed by: Reinier Aguayo M.D. 10/19/2021 8:52 AM
[2021-10-19] MEDS ORDERED: ENOXAPARIN INJ 40 MG/0.4 ML SYR SQ SCH (09:00)
--- NOTE | 2021-10-19 09:14 | Pulmonary Consultation ---
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 Recommendations: 1. Pleural effusion: We will request cytology be sent. Differential would include etiologies such as PE, malignancy, recent spinal surgery, or side effect of chemotherapy. Cytology will be renteria in long-term management. We discussed long-term management options to include serial thoracentesis, indwelling tunneled pleural catheter, or pleurodesis. Again etiology of the effusion should be determined prior to decision regarding ultimate management strategy. Could consider sending beta transferrin however will await cytology first. Recommend repeat PA and lateral chest x-ray in the a.m. 2. PE: Recommend therapeutic anticoagulation. Consultation with hematology would be appropriate. Correlation with the patient's prior films from [facility] might be beneficial. 3. Hypoxemia: Secondary to #1 and #2. Wean oxygen as tolerated. The patient may need to be assessed for supplemental oxygen prior to discharge 4. Adenocarcinoma of the lung: Management per [facility]. May be beneficial to have local medical oncology involved with the patient's care as well. History of Present Illness Attending Physician: Sanjuana Schmitt MD History of Present Illness Asked by hospitalist to assist in evaluation management this patient with widely metastatic adenocarcinoma of the lung, EGFR mutated, with a pleural effusion. History is obtained from reviewed electronic medical record as well as discussion with the patient. The patient is a 61-year-old male who was diagnosed with metastatic non-small cell lung cancer about 6 months ago. He had abnormal imaging studies here and was evaluated at [facility] where all of his biopsies and procedures were done. He has been found to be EGFR positive and has been started on Tagrisso. He has a history of PE and underwent IVC filter placement. Apparently the effusion was noted at [facility] however was too small to sample. He developed progressive back pain and underwent lumbar tumor resection and biopsy at [facility]. This has been complicated by wound infections and long-term antibiotics. He was discharged home on prophylactic Lovenox. He presented to the emergency room yesterday with complaints of shortness of breath. CTA showed segmental/subsegmental PE in the left upper lobe. He underwent thoracentesis in the emergency room with about 2 L of serosanguineous fluid removed. He feels better this morning. He is on oxygen which is a new finding for him. Allergies Allergy/AdvReac Type Severity Reaction Status Date / Time gabapentin AdvReac Migraine Verified 09/15/21 13:53 Home Medications Medication Instructions Recorded Confirmed Type osimertinib 80 mg tablet (Tagrisso) 80 mg PO DAILY #30 tab 08/02/21 10/18/21 Rx duloxetine 60 mg capsule,delayed 60 mg PO DAILY #90 cap 09/15/21 10/18/21 Rx release acetaminophen 500 mg tablet 1,000 mg PO Q6H PRN 10/18/21 10/18/21 History diazepam 5 mg tablet 5 mg PO TID PRN 10/18/21 10/18/21 History docusate sodium 100 mg capsule 100 mg PO BID PRN 10/18/21 10/18/21 History enoxaparin 40 mg/0.4 mL 40 mg SUBCUT DAILY 10/18/21 10/18/21 History subcutaneous syringe lidocaine 5 % topical patch 1 patch TOPICAL DAILY PRN 10/18/21 10/18/21 History (Lidoderm) methocarbamol 750 mg tablet 750 mg PO QID PRN 10/18/21 10/18/21 History morphine 30 mg tablet,extended 30 mg PO Q12H 10/18/21 10/18/21 History release (MS Contin) omeprazole 20 mg capsule,delayed 20 mg PO DAILY 10/18/21 10/18/21 History release ondansetron 4 mg disintegrating 4 mg PO Q8H PRN 10/18/21 10/18/21 History tablet oxycodone 10 mg tablet 10 - 15 mg PO Q6H PRN 10/18/21 10/18/21 History vancomycin 1 gram/250 mL in 1 g IV Q24H 10/18/21 10/18/21 History dextrose 5 % intravenous Patient History Medical History (Updated 10/18/21 @ 19:27 by DIRK Rincon) 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 Bone metastases Pleural effusion Pulmonary embolism Spinal cord compression 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 Stage 4 lung cancer Surgical History (Updated 10/18/21 @ 19:21 by DIRK Rincon) History of ankle surgery S/P IVC filter Family History Father Throat cancer Denies family history of Ovarian cancer Prostate cancer Myocardial infarction Breast cancer Colorectal cancer Social History Smoking Status: Never smoker Second Hand Exposure: No; Do You Dip or Chew Tobacco: No; Hx Alcohol Use: No Hx Substance Use: No Preferred Language: Dutch Communication Ability: Effective Visual Impairment: No Limitations Hearing Ability: Normal Patient Care Technician Required: No Beliefs That Will Affect Care: None marital status: Current Living Situation: Spouse current occupational status: employed Other Information That Helps Us Care for You: No Feels Safe at Home: Yes Safety Concerns: Feels Safe At This Time Childhood Exposure to Second-Hand Smoke: Yes Dental Care, Regularly: Yes Physical Activity Frequency: Daily Seatbelt Use: sometimes Sunscreen Use: Yes Assistive Devices: Walker Review of Systems Review of Systems: Please refer to admission H&P. No additions or deletions Physical Exam Physical Exam: PHYSICAL EXAM: General: awake, alert, no apparent distress Head: Normocephalic, atraumatic ENT: PERRLA, EOMI, no pharyngeal exudate, mucous membranes moist Neuro: AAO x 3, speech clear and appropriate, strength intact bilaterally 5/5, sensation intact and equal all extremities and dermatomes, no pronator drift Chest: equal rise and fall of the chest, no accessory muscle use, no heaves or thrills, decreased in the bases bilaterally Cardiac: Regular rate and rhythm, telemetry reviewed, skin warm dry, cap refill <3 seconds, peripheral pulses +2 no JVD, no murmur, no edema GI: NABS x 4 quadrants, soft, nontender to palpation, no rebound, guarding or tenderness : Spontaneously voiding, no pain, no CVA tenderness, Psych: Normal mood and affect Skin: scar to back healing, PICC line dressing intact Results & Data Results & Data ([facility]) Vital Signs (Past 12 Hours) Vital Signs Temp Pulse Pulse Pulse Resp BP Pulse Ox 10/19/21 07:34 37.1 C 109 H 16 125/82 92 10/19/21 03:30 36.8 C 106 H 22 131/87 92 10/19/21 02:10 112 H 10/18/21 23:00 112 H 10/18/21 21:20 36.4 C L 108 H 18 144/69 H 95 Laboratory Results Pleural fluid studies: Differential: 5% neutrophils, 33% lymphocytes, 62% mesothelial cells Pleural pH 7.32 Pleural protein 3.9 Pleural LDH 956 Pleural glucose less than 10 Gram stains showed moderate white blood cells with no organisms, cultures pending Cytology not sent Critical Care Results & Data Vital Signs (Past 12 Hours) Vital Signs Temp Pulse Pulse Pulse Resp BP Pulse Ox 10/19/21 07:34 37.1 C 109 H 16 125/82 92 10/19/21 03:30 36.8 C 106 H 22 131/87 92 10/19/21 02:10 112 H 10/18/21 23:00 112 H 10/18/21 21:20 36.4 C L 108 H 18 144/69 H 95 Lab & Micro Results (Past 24 Hours) RBC 3.35 M/uL (4.63-6.08) L 10/19/21 WBC 7.98 K/ul (4.8-10.8) 10/19/21 Hgb 8.8 g/dl (14.0-18.0) L 10/19/21 Hct 28.3 % (40.1-51.0) L 10/19/21 MCV 84.5 fL (80.0-100.0) 10/19/21 MCH 26.3 pg (25.0-34.0) 10/19/21 MCHC 31.1 g/dL (32.0-36.0) L 10/19/21 RDW Standard Deviation 45.9 fL (36.4-46.3) 10/19/21 RDW Coefficient of Variation 14.8 % (11.5-14.5) H 10/19/21 Plt Count 249 K/uL (130-400) 10/19/21 MPV 9.7 fL (9.4-12.4) 10/19/21 Neutrophils (%) (Auto) 83.5 % 10/19/21 Lymphocytes (%) (Auto) 5.4 % 10/19/21 Monocytes # (Auto) 0.47 K/uL (0.24-0.82) 10/19/21 Eosinophils # (Auto) 0.30 K/uL (0-0.50) 10/19/21 Immature Granulocyte % (Auto) 0.9 % 10/19/21 Neutrophils # (Auto) 6.67 K/uL (1.4-6.5) H 10/19/21 Lymphocytes # (Auto) 0.43 K/uL (1.2-3.4) L 10/19/21 Monocytes # (Auto) 0.47 K/uL (0.24-0.82) 10/19/21 Eosinophils # (Auto) 0.30 K/uL (0-0.50) 10/19/21 Basophils # (Auto) 0.04 K/uL (0-0.2) 10/19/21 Immature Granulocyte # (Auto) 0.07 K/uL (0.00-0.02) H 10/19/21 Na 136 mmol/L (136-145) 10/19/21 K 3.8 mmol/L (3.5-5.1) 10/19/21 Cl 100 mmol/L (98-107) 10/19/21 CO2 30 mmol/L (21-32) 10/19/21 Anion Gap 6 (3-11) 10/19/21 BUN 11 mg/dl (6-23) 10/19/21 Creatinine 0.58 mg/dl (0.6-1.4) L 10/19/21 Estimated GFR ( Amer) 126.6 ml/min 10/19/21 Estimated GFR (Non-Af Amer) 109.3 ml/min 10/19/21 BUN/Creatinine Ratio 19.0 (10-20) 10/19/21 Glu 99 mg/dl (70-99(Fasting)) 10/19/21 Ca 8.4 mg/dl (8.5-10.1) L 10/19/21 Total Bilirubin 0.6 mg/dl (0.2-1.0) 10/18/21 AST 10 U/L (13-39) L 10/18/21 ALT 8 U/L (7-52) 10/18/21 Alkaline Phosphatase 82 U/L (34-104) 10/18/21 TP 5.8 gm/dl (6.0-8.3) L 10/18/21 Albumin 3.1 gm/dl (3.4-5.0) L 10/18/21 Globulin 2.5 gm/dl (2.5-4.0) 10/18/21 Albumin/Globulin Ratio 1.3 (0.9-2) 10/18/21 Mg 1.8 mg/dl (1.7-2.4) 10/19/21 07:03 10/19/21 Calcium Level 8.4 mg/dl (8.5-10.1) L 10/19/21 07:03 10/19/21 Prothromb Time International Ratio 1.1 (0.9-1.1) 10/18/21 14:30 10/18/21 Microbiology 10/18/21 Unknown Gram Stain - Final Pleural Fluid Diagnostic Findings (Past 24 Hours) Chest CTA 10/18/21 14:00 CT angio chest PE protocol CLINICAL HISTORY: PE TECHNIQUE: Multidetector row helical CT of the chest was performed with angiographic protocol. Coronal and sagittal reformations were obtained. Coronal and sagittal MIPS were obtained from the axial data set and were submitted for review. Automated dose lowering techniques and/or adjustment according to patient size were utilized for this exam. CT DOSE: 469.21 mGy.cm Comparison: Comparison is made to CT chest 07/03/2021 FINDINGS: Lungs and pleura: There is a large right pleural effusion, increased from prior exam. There is associated atelectasis but no nonenhancing regions are seen to suggest pneumonia. There is a soft tissue density in the right upper lobe, similar in appearance to prior exam, measuring 38 x 30 mm. Questionable satellite nodules are seen. Stable 7 mm nodule in the left upper lobe (series 4 image 158). Heart and pericardium: Heart size is normal. No pericardial effusion. Vessels: Moderate atherosclerotic changes in the aorta and coronary arteries. There is a segmental/subsegmental pulmonary embolus in the left upper lobe (image 154). Mediastinum and maribell: Subcentimeter lymph nodes are seen. Chest wall and lower neck: Unremarkable. Abdomen: Unremarkable. Bones: Posterior fixation hardware is seen throughout the spine. A few vertebral levels are characterized by destruction with soft tissue mass. In addition, there are several lytic foci in the skeleton. IMPRESSION: 1. A segmental/subsegmental pulmonary embolus is in the left upper lobe. No additional pulmonary emboli are seen. 2. Large right pleural effusion, increased from prior exam. 3. No evidence of pneumonia. 4. Redemonstration of right upper lobe soft tissue density compatible with malignancy. There are questionable satellite nodules and a stable 7 mm nodule in left upper lobe, of uncertain significance although metastatic disease cannot be excluded. Subcentimeter mediastinal lymph nodes are seen, unchanged from prior exam. 5. Numerous lytic lesions are seen in the thoracic spine with pathologic fractures, bridged by fixation hardware. ACT 112: Negative or not required by law. Electronically signed by: Reinier Aguayo M.D. 10/18/2021 3:44 PM Chest X-Ray 10/18/21 14:00 XR chest 1V portable CLINICAL HISTORY: SOB TECHNIQUE: Single frontal radiograph of the chest was obtained. Comparison: Comparison is made to rib series 03/23/2021 FINDINGS: A right PICC terminates in the cavoatrial junction. Interval placement of extensive thoracic spinal fixation hardware. The cardiomediastinal silhouette is obscured. A tortuous aorta is again seen. Interval development of right large pleural effusion. The left lung is clear. Right upper lung density cannot be excluded. No evidence of pleural effusion or pneumothorax. IMPRESSION: Interval development of a large right pleural effusion. Right upper lung density corresponding to previously noted mass cannot be excluded. In the right lower lung there is atelectasis with or without superimposed aspiration/pneumonia. ACT 112: Negative or not required by law. Electronically signed by: Reinier Aguayo M.D. 10/18/2021 3:00 PM Chest X-Ray 10/18/21 17:59 SINGLE VIEW CHEST CLINICAL HISTORY: Status post thoracentesis FINDINGS: An AP, portable, semierect chest radiograph is compared to performed earlier the same day 10/18/2021. A right PICC line is unchanged in position. The heart is mildly enlarged. There is a small residual right pleural effusion with bibasilar scarring/atelectasis. No airspace consolidation is seen typical for pneumonia. Loculated fluid is again seen in the right upper lobe lung the major fissure. No pneumothorax is identified. The bony thorax is grossly intact. Extensive spinal fusion hardware is in place IMPRESSION: 1. No pneumothorax is identified post procedure. 2. There is a small residual right pleural effusion and bibasilar atelectasis ACT 112: Negative or not required by law. Electronically signed by: Clay Neri M.D. 10/18/2021 7:09 PM Chest X-Ray 10/19/21 05:00 XR chest 1V portable CLINICAL HISTORY: evaluate effusion pleural right TECHNIQUE: Single frontal radiograph of the chest was obtained. Comparison: Comparison is made to chest radiograph 10/18/2021 and CTA chest 10/18/2021 FINDINGS: Posterior thoracic fixation hardware is seen. Stable position of right PICC. The cardiomediastinal silhouette is stable. Faint right airspace opacity is new from prior exam. Right upper lung density is unchanged. Interval increased conspicuity of a small right pleural effusion. IMPRESSION: Interval increase in conspicuity of a small right pleural effusion. Faint underlying airspace opacity may represent atelectasis with or without superimposed aspiration/pneumonia. Interval stability of right upper lung density compatible with known malignancy. ACT 112: Negative or not required by law. Electronically signed by: Reinier Aguayo M.D. 10/19/2021 8:52 AM I & O Totals 24 Hours 10/18/21 10/19/21 10/20/21 06:59 06:59 06:59 Intake Total 100 / 100 Output Total 400 / 400 Balance -300 / -300 Cumulative 10/18/21 13:22 thru 10/19/21 06:40 Intake Total 100 Output Total 400 Balance -300 RT Ventilator Mngmt (Last Documented) Ventilator Ordered Settings Respiratory Rate 16 10/19/21 07:34 Ventilator - PT Measurements Respiratory Rate 16 PG Care Time/CCT Total # of Minutes Spent Total Time Spent with Patient: Total time spent is greater than 50% in coordination of care (as documented) at patient's floor/unit and/or counseling patient: Coding Level of Care Code 53973 Inpt Consult Level 4 Diagnoses Pleural effusion J90 Pulmonary embolism I26.99 Hypoxia R09.02 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 C34.91; C78.7
[2021-10-19] MEDS: POLYETHYLENE (MIRALAX) 17 GM PACK PO SCH (09:16)
[2021-10-19] MEDS: DULoxetine HCL 60 MG CAP PO SCH (09:16)
[2021-10-19] MEDS: DOCUSATE SODIUM 100 MG CAP PO SCH ×2 (09:16→19:50)
[2021-10-19] MEDS: SENNA 8.6 MG TAB PO SCH (09:16)
[2021-10-19] MEDS ORDERED: VANCOMYCIN HCL 2,000 MG in SODIUM CHLORIDE 0.9% 500 ML IV ONE (10:00)
[2021-10-19] MEDS: PANTOprazole 40 MG TAB PO SCH (10:31)
--- NOTE | 2021-10-19 11:59 | Electrocardiogram Report ---
Test Reason : Blood Pressure : / mmHG Vent. Rate : 109 BPM Atrial Rate : 109 BPM P-R Int : 130 ms QRS Dur : 084 ms QT Int : 338 ms P-R-T Axes : 018 -41 011 degrees QTc Int : 455 ms Sinus tachycardia Left axis deviation Poor R wave progression, consider anterior HI vs. lead placement vs. LVH Abnormal ECG Confirmed by Mukul Mckay ([id number]) on 10/19/2021 11:59:23 AM Referred By: Beatriz East Confirmed By:Nash Mckay
--- NOTE | 2021-10-19 12:12 | Pharmacy Report ---
Pharmacy Vanc AUC Short Note - Date of Service October 19, 2021 - Assessment & Plan Assessment 61 year old M receiving vancomycin for treatment of spine infection. Pertinent microbiologic data includes: N/A. Day # 1 of antimicrobial therapy. Plan Vancomycin * AUC/LINDA is the preferred PK/PD target for vancomycin * AUC guided dosing is effective and associated with decreased risk of nephrotoxicity compared to traditional trough targets * Random level of 4.4 mcg/mL is NOT predicted to achieve target AUC/LINDA of 400- 600 mg/L.hr therefore increase dose to 1500 mg IV q12 hours -this may be associated with a 12 % risk of nephrotoxicity * Trough ordered for: 10/21/21 Pharmacy will continue to follow and will adjust dose/frequency as necessary. Thank you.
--- NOTE | 2021-10-19 13:33 | Hospitalist Progress Note ---
Date of Service October 19, 2021 Assessment & Plan (1) Pleural effusion: Plan: Acute on chronic- increased since June with compressive atelectasis Thoracentesis completed by Dr. Jordan on admission, removed 2L fluid Pleural fluid c/w exudative effusion Cytology added on today and now showing metastatic adenocarcinoma No postoperative pneumothorax or pulmonary edema, repeat CXR shows slight reaccumulation of Rt effusion Pulmonary consultation appreciated -long-term management options to include serial thoracentesis, indwelling tunneled pleural catheter, or pleurodesis if cytology positive. -repeat CXR PA/Lat in AM -add on incentive spirometry -continue supplemental O2 to keep POx> 90-92% -will need 2 step prior to discharge (2) Acute respiratory failure with hypoxia: Plan: 2/2 pleural effusion, lung CA, and atelectasis currently requiring 3LNC. No home O2 previously -add on ICS now s/p thoracentesis as above continue supplemental O2 to keep POx> 92% -2 step prior to discharge (3) Pulmonary embolism: Plan: Acute on Chronic- with IVC filter placement as well as reported Lower extremity DVT during hospitalization at - With new PE in left upper lobe segmental and subsegmental -He had a CT angiogram of the chest on October 05-I reviewed his personal portal on his cell phone-it showed no PE at that time but was nondiagnostic for segmental and subsegmental arteries due to respiratory motion and poor opacification - Thoracic spine surgery -14 of October- Xarelto has been hold since that time - IVC filter in place to prevent large PE resulting in mortality -I discussed his case with his spine surgeon on the phone on 10/19-he is okay for the patient to restart Xarelto at postop day 7 which will be tomorrow -Plan to start Xarelto 20 mg daily with dinner on 10/20 and discontinue Lovenox SQ -Watch for focal neurological symptom development which would indicate hematoma in the spine (4) Anemia: Plan: hgb trending downward today to 8.8 since admission hemoglobin of 9.3 likely 2/2 hemodilutional effect He had a normal hemoglobin just 4 months ago no bleeding from anywhere currently, except effusion did have 34000 RBCs He reports large amounts of blood loss during both his recent spine surgeries in the last 6 weeks, required multiple PRBCs transfused Suspect this is blood loss anemia His Tagrisso can cause anemia so in part could be due to this is a chemotherapeutic side effect check iron studies in the AM and replace iron as needed follow CBC, transfuse if hgb < 8 (5) S/P IVC filter: Plan: - placed at plan removal in 6 months reported (6) Elevated troponin: Plan: Routinely drawn in the EMD elevated at 125 and then's trended slightly upward over serial lab draws to 148 - no acute ST elevation no chest pain complaints - likely secondary to pulmonary stress, dyspnea and hypoxia type II demand (7) Spinal cord compression 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: Plan: As above- resected and biopsied 6-14 October (8) Cancer related pain: Plan: Home regimen is keeping patient comfortable as long as he is consistent - Continue tylenol, Lidocaine patches, Oxycodone 15mg q6 prn, MS extended 30mg q12 - Valium 5mg PO prn muscle spasms (9) 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 Less SOB, less pain in right rib area than yesterday but still some pain present. Remains on 3LNC. Reports he had a lot of bleeding and required large amounts of PRBC transfusion during both his spine surgeries in the last 6 weeks. No BM in 4 days. No blood in stool, no bleeding from anywhere else he has noticed. He called his SPine SUrgeon, Dr. Cory Pressley, on the phone with me in the room and we discussed restarting his Xarelto for his new small JAZIEL PE as recommended by PULM here. Since it has been 7 days since the surgery, Dr. Pressley thought this was fine and to monitor for worsening neuro signs in case hematoma forms. Tele with NSR, ST, rates 100-110s Review of Systems Review of Systems: All systems reviewed & are unremarkable except as noted in HPI & below Physical Exam Constitutional: WD/WN, vitals as above Eyes: + anicteric sclerae ENMT: external ear and nose normal, oropharynx normal Neck: trachea midline, no thyromegaly Respiratory: normal respiratory effort; no labored breathing and no cough Auscultation: + diminished lung sounds (at right base); no crackles, no rhonchi and no wheezes Cardiovascular: RRR, no murmur, no edema Chest (Breasts): Chest: normal inspection of chest Gastrointestinal (Abdomen): normal bowel sounds, soft, nontender, no hepatosplenomegaly Musculoskeletal: Extremities: extremities normal to inspection; no cyanosis and no clubbing Skin: no rashes, warm and dry + wound (well-healing wounds upper & mid back with sutures in place over spine) Neurologic: moves all extremities and awake; no focal motor deficits Psychiatric: A+Ox3, euthymic affect Lymphatic: no lymphedema Results & Data Results & Data ([facility]) Vital Signs (Past 12 Hours) Vital Signs Temp Pulse Pulse Resp BP Pulse Ox 10/19/21 11:27 36.9 C 106 H 16 115/75 92 10/19/21 07:34 37.1 C 109 H 16 125/82 92 10/19/21 07:30 106 H 10/19/21 03:30 36.8 C 106 H 22 131/87 92 10/19/21 02:10 112 H Laboratory Results 10/19/21 10/19/21 10/19/21 Range/Units 07:03 07:03 07:03 WBC 7.98 (4.8-10.8) K/ul RBC 3.35 L (4.63-6.08) M/uL Hgb 8.8 L (14.0-18.0) g/dl POC Hgb (14.0-18.0) g/dl Hct 28.3 L (40.1-51.0) % POC Hct (42-52) % MCV 84.5 (80.0-100.0) fL MCH 26.3 (25.0-34.0) pg MCHC 31.1 L (32.0-36.0) g/dL RDW Std Deviation 45.9 (36.4-46.3) fL RDW Coeff of Sudhakar 14.8 H (11.5-14.5) % Plt Count 249 (130-400) K/uL MPV 9.7 (9.4-12.4) fL Immature Gran % (Auto) 0.9 % Neut % (Auto) 83.5 % Lymph % (Auto) 5.4 % [place] % (Auto) 5.9 % Eos % (Auto) 3.8 % Baso % (Auto) 0.5 % Neut # (Auto) 6.67 H (1.4-6.5) K/uL Lymph # (Auto) 0.43 L (1.2-3.4) K/uL [place] # (Auto) 0.47 (0.24-0.82) K/uL Eos # (Auto) 0.30 (0-0.50) K/uL Baso # (Auto) 0.04 (0-0.2) K/uL Immature Gran # (Auto) 0.07 H (0.00-0.02) K/uL PT (9.0-12.0) Seconds INR (0.9-1.1) APTT (21.0-31.0) Seconds PTT Ratio POC Sodium (135-144) mmol/L Sodium 136 (136-145) mmol/L POC Potassium (3.3-5.0) mmol/L Potassium 3.8 (3.5-5.1) mmol/L POC Chloride (101-112) mmol/L Chloride 100 (98-107) mmol/L Carbon Dioxide 30 (21-32) mmol/L POC Total CO2 (24-31) mmol/L Anion Gap 6 (3-11) POC Anion Gap (16-25) mmol/L POC BUN (7-18) mg/dl BUN 11 (6-23) mg/dl Creatinine 0.58 L (0.6-1.4) mg/dl POC Creatinine (0.6-1.3) mg/dl Est Cr Clr Drug Dosing 157.8 Est GFR ( Amer) 126.6 ml/min Est GFR (Non-Af Amer) 109.3 ml/min BUN/Creatinine Ratio 19.0 (10-20) Glucose 99 (70-99(Fasting)) mg/dl POC Glucose (other) (70-99) mg/dl Calcium 8.4 L (8.5-10.1) mg/dl POC Ioniz Calcium Pablo (1.12-1.32) mmol/l Magnesium 1.8 (1.7-2.4) mg/dl Total Bilirubin (0.2-1.0) mg/dl AST (13-39) U/L ALT (7-52) U/L Alkaline Phosphatase (34-104) U/L Troponin I High Sens 148.8 H* (0-20) pg/ml Total Protein (6.0-8.3) gm/dl Albumin (3.4-5.0) gm/dl Globulin (2.5-4.0) gm/dl Albumin/Globulin Ratio (0.9-2) Fluid Neutrophils % % Fluid Lymphocytes % % Fluid Eosinophils % % Fluid Meso/Macro/[place] % % Fluid Slide Review Fluid Comment Pleural Fluid Source Pleural Color Pleural Appearance Pleural pH (7.3-7.4) Pleural WBC /uL Pleural RBC /uL Pleural Total Protein gm/dl Pleural LDH U/L Pleural Glucose mg/dl Random Vancomycin 4.4 L (10-20) mcg/ml SARS-CoV-2, RNA, NAAT (NEGATIVE) 10/18/21 10/18/21 10/18/21 Range/Units Unknown Unknown Unknown WBC (4.8-10.8) K/ul RBC (4.63-6.08) M/uL Hgb (14.0-18.0) g/dl POC Hgb (14.0-18.0) g/dl Hct (40.1-51.0) % POC Hct (42-52) % MCV (80.0-100.0) fL MCH (25.0-34.0) pg MCHC (32.0-36.0) g/dL RDW Std Deviation (36.4-46.3) fL RDW Coeff of Sudhakar (11.5-14.5) % Plt Count (130-400) K/uL MPV (9.4-12.4) fL Immature Gran % (Auto) % Neut % (Auto) % Lymph % (Auto) % [place] % (Auto) % Eos % (Auto) % Baso % (Auto) % Neut # (Auto) (1.4-6.5) K/uL Lymph # (Auto) (1.2-3.4) K/uL [place] # (Auto) (0.24-0.82) K/uL Eos # (Auto) (0-0.50) K/uL Baso # (Auto) (0-0.2) K/uL Immature Gran # (Auto) (0.00-0.02) K/uL PT (9.0-12.0) Seconds INR (0.9-1.1) APTT (21.0-31.0) Seconds PTT Ratio POC Sodium (135-144) mmol/L Sodium (136-145) mmol/L POC Potassium (3.3-5.0) mmol/L Potassium (3.5-5.1) mmol/L POC Chloride (101-112) mmol/L Chloride (98-107) mmol/L Carbon Dioxide (21-32) mmol/L POC Total CO2 (24-31) mmol/L Anion Gap (3-11) POC Anion Gap (16-25) mmol/L POC BUN (7-18) mg/dl BUN (6-23) mg/dl Creatinine (0.6-1.4) mg/dl POC Creatinine (0.6-1.3) mg/dl Est Cr Clr Drug Dosing Est GFR ( Amer) ml/min Est GFR (Non-Af Amer) ml/min BUN/Creatinine Ratio (10-20) Glucose (70-99(Fasting)) mg/dl POC Glucose (other) (70-99) mg/dl Calcium (8.5-10.1) mg/dl POC Ioniz Calcium Pablo (1.12-1.32) mmol/l Magnesium (1.7-2.4) mg/dl Total Bilirubin (0.2-1.0) mg/dl AST (13-39) U/L ALT (7-52) U/L Alkaline Phosphatase (34-104) U/L Troponin I High Sens (0-20) pg/ml Total Protein (6.0-8.3) gm/dl Albumin (3.4-5.0) gm/dl Globulin (2.5-4.0) gm/dl Albumin/Globulin Ratio (0.9-2) Fluid Neutrophils % 5 % Fluid Lymphocytes % 33 % Fluid Eosinophils % 0 % Fluid Meso/Macro/[place] % 62 % Fluid Slide Review Pending Fluid Comment Pleural Fluid Source R.LUNG Pleural Color Jossie Pleural Appearance Cloudy Pleural pH 7.32 (7.3-7.4) Pleural WBC 2327 /uL Pleural RBC 71491 /uL Pleural Total Protein 3.9 gm/dl Pleural LDH 956 U/L Pleural Glucose < 10 mg/dl Random Vancomycin (10-20) mcg/ml SARS-CoV-2, RNA, NAAT (NEGATIVE) 10/18/21 10/18/21 10/18/21 Range/Units 19:12 19:12 14:59 WBC (4.8-10.8) K/ul RBC (4.63-6.08) M/uL Hgb (14.0-18.0) g/dl POC Hgb (14.0-18.0) g/dl Hct (40.1-51.0) % POC Hct (42-52) % MCV (80.0-100.0) fL MCH (25.0-34.0) pg MCHC (32.0-36.0) g/dL RDW Std Deviation (36.4-46.3) fL RDW Coeff of Sudhakar (11.5-14.5) % Plt Count (130-400) K/uL MPV (9.4-12.4) fL Immature Gran % (Auto) % Neut % (Auto) % Lymph % (Auto) % [place] % (Auto) % Eos % (Auto) % Baso % (Auto) % Neut # (Auto) (1.4-6.5) K/uL Lymph # (Auto) (1.2-3.4) K/uL [place] # (Auto) (0.24-0.82) K/uL Eos # (Auto) (0-0.50) K/uL Baso # (Auto) (0-0.2) K/uL Immature Gran # (Auto) (0.00-0.02) K/uL PT (9.0-12.0) Seconds INR (0.9-1.1) APTT (21.0-31.0) Seconds PTT Ratio POC Sodium (135-144) mmol/L Sodium (136-145) mmol/L POC Potassium (3.3-5.0) mmol/L Potassium (3.5-5.1) mmol/L POC Chloride (101-112) mmol/L Chloride (98-107) mmol/L Carbon Dioxide (21-32) mmol/L POC Total CO2 (24-31) mmol/L Anion Gap (3-11) POC Anion Gap (16-25) mmol/L POC BUN (7-18) mg/dl BUN (6-23) mg/dl Creatinine (0.6-1.4) mg/dl POC Creatinine (0.6-1.3) mg/dl Est Cr Clr Drug Dosing Est GFR ( Amer) ml/min Est GFR (Non-Af Amer) ml/min BUN/Creatinine Ratio (10-20) Glucose (70-99(Fasting)) mg/dl POC Glucose (other) (70-99) mg/dl Calcium (8.5-10.1) mg/dl POC Ioniz Calcium Pablo (1.12-1.32) mmol/l Magnesium (1.7-2.4) mg/dl Total Bilirubin 0.6 (0.2-1.0) mg/dl AST (13-39) U/L ALT (7-52) U/L Alkaline Phosphatase (34-104) U/L Troponin I High Sens 138.2 H* (0-20) pg/ml Total Protein (6.0-8.3) gm/dl Albumin 3.1 L (3.4-5.0) gm/dl Globulin (2.5-4.0) gm/dl Albumin/Globulin Ratio (0.9-2) Fluid Neutrophils % % Fluid Lymphocytes % % Fluid Eosinophils % % Fluid Meso/Macro/[place] % % Fluid Slide Review Fluid Comment Pleural Fluid Source Pleural Color Pleural Appearance Pleural pH (7.3-7.4) Pleural WBC /uL Pleural RBC /uL Pleural Total Protein gm/dl Pleural LDH U/L Pleural Glucose mg/dl Random Vancomycin (10-20) mcg/ml SARS-CoV-2, RNA, NAAT NEGATIVE (NEGATIVE) 10/18/21 10/18/21 10/18/21 Range/Units 14:35 14:30 14:30 WBC (4.8-10.8) K/ul RBC (4.63-6.08) M/uL Hgb (14.0-18.0) g/dl POC Hgb 9.5 L (14.0-18.0) g/dl Hct (40.1-51.0) % POC Hct 28 L (42-52) % MCV (80.0-100.0) fL MCH (25.0-34.0) pg MCHC (32.0-36.0) g/dL RDW Std Deviation (36.4-46.3) fL RDW Coeff of Sudhakar (11.5-14.5) % Plt Count (130-400) K/uL MPV (9.4-12.4) fL Immature Gran % (Auto) % Neut % (Auto) % Lymph % (Auto) % [place] % (Auto) % Eos % (Auto) % Baso % (Auto) % Neut # (Auto) (1.4-6.5) K/uL Lymph # (Auto) (1.2-3.4) K/uL [place] # (Auto) (0.24-0.82) K/uL Eos # (Auto) (0-0.50) K/uL Baso # (Auto) (0-0.2) K/uL Immature Gran # (Auto) (0.00-0.02) K/uL PT 11.3 (9.0-12.0) Seconds INR 1.1 (0.9-1.1) APTT 33.2 H (21.0-31.0) Seconds PTT Ratio 1.2 POC Sodium 137 (135-144) mmol/L Sodium 137 (136-145) mmol/L POC Potassium 3.8 (3.3-5.0) mmol/L Potassium 3.8 (3.5-5.1) mmol/L POC Chloride 97 L (101-112) mmol/L Chloride 101 (98-107) mmol/L Carbon Dioxide 29 (21-32) mmol/L POC Total CO2 29 (24-31) mmol/L Anion Gap 7 (3-11) POC Anion Gap 16.0 (16-25) mmol/L POC BUN 12 (7-18) mg/dl BUN 13 (6-23) mg/dl Creatinine 0.63 (0.6-1.4) mg/dl POC Creatinine 0.6 (0.6-1.3) mg/dl Est Cr Clr Drug Dosing Not Reportable Est GFR ( Amer) 122.4 ml/min Est GFR (Non-Af Amer) 105.6 ml/min BUN/Creatinine Ratio 20.6 H (10-20) Glucose 95 (70-99(Fasting)) mg/dl POC Glucose (other) 98 (70-99) mg/dl Calcium 8.5 (8.5-10.1) mg/dl POC Ioniz Calcium Pablo 1.18 (1.12-1.32) mmol/l Magnesium 1.8 (1.7-2.4) mg/dl Total Bilirubin 0.5 (0.2-1.0) mg/dl AST 10 L (13-39) U/L ALT 8 (7-52) U/L Alkaline Phosphatase 82 (34-104) U/L Troponin I High Sens 125.3 H* (0-20) pg/ml Total Protein 5.8 L (6.0-8.3) gm/dl Albumin 3.3 L (3.4-5.0) gm/dl Globulin 2.5 (2.5-4.0) gm/dl Albumin/Globulin Ratio 1.3 (0.9-2) Fluid Neutrophils % % Fluid Lymphocytes % % Fluid Eosinophils % % Fluid Meso/Macro/[place] % % Fluid Slide Review Fluid Comment Pleural Fluid Source Pleural Color Pleural Appearance Pleural pH (7.3-7.4) Pleural WBC /uL Pleural RBC /uL Pleural Total Protein gm/dl Pleural LDH U/L Pleural Glucose mg/dl Random Vancomycin (10-20) mcg/ml SARS-CoV-2, RNA, NAAT (NEGATIVE) 10/18/21 Range/Units 14:30 WBC 8.84 (4.8-10.8) K/ul RBC 3.40 L (4.63-6.08) M/uL Hgb 9.3 L (14.0-18.0) g/dl POC Hgb (14.0-18.0) g/dl Hct 29.6 L (40.1-51.0) % POC Hct (42-52) % MCV 87.1 (80.0-100.0) fL MCH 27.4 (25.0-34.0) pg MCHC 31.4 L (32.0-36.0) g/dL RDW Std Deviation 47.5 H (36.4-46.3) fL RDW Coeff of Sudhakar 14.8 H (11.5-14.5) % Plt Count 261 (130-400) K/uL MPV 9.3 L (9.4-12.4) fL Immature Gran % (Auto) 1.0 % Neut % (Auto) 75.8 % Lymph % (Auto) 8.5 % [place] % (Auto) 9.2 % Eos % (Auto) 4.9 % Baso % (Auto) 0.6 % Neut # (Auto) 6.71 H (1.4-6.5) K/uL Lymph # (Auto) 0.75 L (1.2-3.4) K/uL [place] # (Auto) 0.81 (0.24-0.82) K/uL Eos # (Auto) 0.43 (0-0.50) K/uL Baso # (Auto) 0.05 (0-0.2) K/uL Immature Gran # (Auto) 0.09 H (0.00-0.02) K/uL PT (9.0-12.0) Seconds INR (0.9-1.1) APTT (21.0-31.0) Seconds PTT Ratio POC Sodium (135-144) mmol/L Sodium (136-145) mmol/L POC Potassium (3.3-5.0) mmol/L Potassium (3.5-5.1) mmol/L POC Chloride (101-112) mmol/L Chloride (98-107) mmol/L Carbon Dioxide (21-32) mmol/L POC Total CO2 (24-31) mmol/L Anion Gap (3-11) POC Anion Gap (16-25) mmol/L POC BUN (7-18) mg/dl BUN (6-23) mg/dl Creatinine (0.6-1.4) mg/dl POC Creatinine (0.6-1.3) mg/dl Est Cr Clr Drug Dosing Est GFR ( Amer) ml/min Est GFR (Non-Af Amer) ml/min BUN/Creatinine Ratio (10-20) Glucose (70-99(Fasting)) mg/dl POC Glucose (other) (70-99) mg/dl Calcium (8.5-10.1) mg/dl POC Ioniz Calcium Pablo (1.12-1.32) mmol/l Magnesium (1.7-2.4) mg/dl Total Bilirubin (0.2-1.0) mg/dl AST (13-39) U/L ALT (7-52) U/L Alkaline Phosphatase (34-104) U/L Troponin I High Sens (0-20) pg/ml Total Protein (6.0-8.3) gm/dl Albumin (3.4-5.0) gm/dl Globulin (2.5-4.0) gm/dl Albumin/Globulin Ratio (0.9-2) Fluid Neutrophils % % Fluid Lymphocytes % % Fluid Eosinophils % % Fluid Meso/Macro/[place] % % Fluid Slide Review Fluid Comment Pleural Fluid Source Pleural Color Pleural Appearance Pleural pH (7.3-7.4) Pleural WBC /uL Pleural RBC /uL Pleural Total Protein gm/dl Pleural LDH U/L Pleural Glucose mg/dl Random Vancomycin (10-20) mcg/ml SARS-CoV-2, RNA, NAAT (NEGATIVE) Diagnostic Findings Chest CTA 10/18/21 14:00 CT angio chest PE protocol CLINICAL HISTORY: PE TECHNIQUE: Multidetector row helical CT of the chest was performed with angiographic protocol. Coronal and sagittal reformations were obtained. Coronal and sagittal MIPS were obtained from the axial data set and were submitted for review. Automated dose lowering techniques and/or adjustment according to patient size were utilized for this exam. CT DOSE: 469.21 mGy.cm Comparison: Comparison is made to CT chest 07/03/2021 FINDINGS: Lungs and pleura: There is a large right pleural effusion, increased from prior exam. There is associated atelectasis but no nonenhancing regions are seen to suggest pneumonia. There is a soft tissue density in the right upper lobe, similar in appearance to prior exam, measuring 38 x 30 mm. Questionable satellite nodules are seen. Stable 7 mm nodule in the left upper lobe (series 4 image 158). Heart and pericardium: Heart size is normal. No pericardial effusion. Vessels: Moderate atherosclerotic changes in the aorta and coronary arteries. There is a segmental/subsegmental pulmonary embolus in the left upper lobe (image 154). Mediastinum and maribell: Subcentimeter lymph nodes are seen. Chest wall and lower neck: Unremarkable. Abdomen: Unremarkable. Bones: Posterior fixation hardware is seen throughout the spine. A few vertebral levels are characterized by destruction with soft tissue mass. In addition, there are several lytic foci in the skeleton. IMPRESSION: 1. A segmental/subsegmental pulmonary embolus is in the left upper lobe. No additional pulmonary emboli are seen. 2. Large right pleural effusion, increased from prior exam. 3. No evidence of pneumonia. 4. Redemonstration of right upper lobe soft tissue density compatible with malignancy. There are questionable satellite nodules and a stable 7 mm nodule in left upper lobe, of uncertain significance although metastatic disease cannot be excluded. Subcentimeter mediastinal lymph nodes are seen, unchanged from prior exam. 5. Numerous lytic lesions are seen in the thoracic spine with pathologic fractures, bridged by fixation hardware. ACT 112: Negative or not required by law. Electronically signed by: Reinier Aguayo M.D. 10/18/2021 3:44 PM Chest X-Ray 10/18/21 14:00 XR chest 1V portable CLINICAL HISTORY: SOB TECHNIQUE: Single frontal radiograph of the chest was obtained. Comparison: Comparison is made to rib series 03/23/2021 FINDINGS: A right PICC terminates in the cavoatrial junction. Interval placement of extensive thoracic spinal fixation hardware. The cardiomediastinal silhouette is obscured. A tortuous aorta is again seen. Interval development of right large pleural effusion. The left lung is clear. Right upper lung density cannot be excluded. No evidence of pleural effusion or pneumothorax. IMPRESSION: Interval development of a large right pleural effusion. Right upper lung density corresponding to previously noted mass cannot be excluded. In the right lower lung there is atelectasis with or without superimposed aspiration/pneumonia. ACT 112: Negative or not required by law. Electronically signed by: Reinier Aguayo M.D. 10/18/2021 3:00 PM Chest X-Ray 10/18/21 17:59 SINGLE VIEW CHEST CLINICAL HISTORY: Status post thoracentesis FINDINGS: An AP, portable, semierect chest radiograph is compared to performed earlier the same day 10/18/2021. A right PICC line is unchanged in position. The heart is mildly enlarged. There is a small residual right pleural effusion with bibasilar scarring/atelectasis. No airspace consolidation is seen typical for pneumonia. Loculated fluid is again seen in the right upper lobe lung the major fissure. No pneumothorax is identified. The bony thorax is grossly intact. Extensive spinal fusion hardware is in place IMPRESSION: 1. No pneumothorax is identified post procedure. 2. There is a small residual right pleural effusion and bibasilar atelectasis ACT 112: Negative or not required by law. Electronically signed by: Clay Neri M.D. 10/18/2021 7:09 PM Chest X-Ray 10/19/21 05:00 XR chest 1V portable CLINICAL HISTORY: evaluate effusion pleural right TECHNIQUE: Single frontal radiograph of the chest was obtained. Comparison: Comparison is made to chest radiograph 10/18/2021 and CTA chest 10/18/2021 FINDINGS: Posterior thoracic fixation hardware is seen. Stable position of right PICC. The cardiomediastinal silhouette is stable. Faint right airspace opacity is new from prior exam. Right upper lung density is unchanged. Interval increased conspicuity of a small right pleural effusion. IMPRESSION: Interval increase in conspicuity of a small right pleural effusion. Faint underlying airspace opacity may represent atelectasis with or without superimposed aspiration/pneumonia. Interval stability of right upper lung density compatible with known malignancy. ACT 112: Negative or not required by law. Electronically signed by: Reinier Aguayo M.D. 10/19/2021 8:52 AM PG Care Time/CCT Total # of Minutes Spent Total Time Spent with Patient: Total time spent is greater than 50% in coordination of care (as documented) at patient's floor/unit and/or counseling patient: Coding Level of Care Code 66404 Subseq Hosp Care Lvl 3 Diagnoses Pleural effusion J90 Pulmonary embolism I26.99 S/P IVC filter Z95.828 Elevated troponin R77.8 Spinal cord compression 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 Anemia D64.9 Anemia type: unspecified type Acute respiratory failure with hypoxia J96.01 (1) Anemia Anemia type: unspecified type Qualified Code(s): D64.9 - Anemia, unspecified
[2021-10-19] MEDS ORDERED: RIVAROXABAN 20 MG TAB PO SCH (16:30)
[2021-10-19] MEDS ORDERED: Nursing to Pharmacy Communication SCH (16:30)
[2021-10-19] MEDS: OSIMERTINIB MESYLATE PO SCH (16:34)
[2021-10-19] MEDS: LIDOCAINE 5% 1 PATCH TD SCH (17:46)
[2021-10-19] MEDS: VANCOMYCIN HCL 1,500 MG in SODIUM CHLORIDE 0.9% 500 ML IV SCH (22:44)
[2021-10-20] MEDS ORDERED: bisacodyL 10 MG SUPP PR STA (01:39)
[2021-10-20] MEDS: oxyCODONE HCL IR 5 MG TAB (IMMEDIATE RELEASE) PO PRN ×2 (05:37→12:05)
[2021-10-20] MEDS: MoRPHine SULFATE CR 15 MG TABCR PO SCH (06:20)
[2021-10-20 06:37] LABS: Basophils # (auto) 0.04 K/uL (0-0.2); Basophils % (auto) 0.5 %; Eosinophils # (auto) 0.38 K/uL (0-0.50); Eosinophils % (auto) 4.6 %; Hematocrit (blood only) 26.5 % (40.1-51.0); Hemoglobin 8.2 g/dl (14.0-18.0); Immature Granulocytes # (auto) 0.07 K/uL (0.00-0.02); Immature Granulocytes % (auto) 0.9 %; Lymphocytes # (auto) 0.57 K/uL (1.2-3.4); Lymphocytes % (auto) 6.9 %; Mean Corpuscular Hemoglobin 26.4 pg (25.0-34.0); Mean Corpuscular Hgb Conc 30.9 g/dL (32.0-36.0); Mean Corpuscular Volume 85.2 fL (80.0-100.0); Mean Platelet Volume 9.6 fL (9.4-12.4); Monocytes # (auto) 0.73 K/uL (0.24-0.82); Monocytes % (auto) 8.9 %; Neutrophils # (auto) 6.42 K/uL (1.4-6.5); Neutrophils % (auto) 78.2 %; Platelet Count 189 K/uL (130-400); RDW Standard Deviation 46.5 fL (36.4-46.3); Red Blood Count 3.11 M/uL (4.63-6.08); White Blood Count 8.21 K/ul (4.8-10.8)
[2021-10-20 07:08] LABS: Iron 10 mcg/dl (35-175); Total Iron Binding Cap Calc 174 mcg/dl (250-450); Transferrin (FE) Percent Satur 6 % (20-50); Unsaturated Iron Binding Cap 164 mcg/dl (155-355)
[2021-10-20 07:24] LABS: Ferritin 483.3 ng/ml (8-388)
[2021-10-20 07:37] LABS: BUN Creatinine Ratio 20.3 (10-20); Calcium 8.1 mg/dl (8.5-10.1); Creatinine Clr Calc Pharmacy 132.7 ml/min; Est GFR (African American) 117.9 ml/min; Est GFR (Non-African American) 101.7 ml/min; Magnesium 1.9 mg/dl (1.7-2.4); Potassium 3.9 mmol/L (3.5-5.1)
[2021-10-20] MEDS ORDERED: LACTATED RINGER'S 500 ML IV ONE (08:28)
[2021-10-20] MEDS ORDERED: OSIMERTINIB MESYLATE PO SCH (09:00)
[2021-10-20] MEDS ORDERED: IRON SUCROSE 300 MG in SODIUM CHLORIDE 0.9% 250 ML IV ONE (09:00)
[2021-10-20] MEDS: DULoxetine HCL 60 MG CAP PO SCH (09:22)
[2021-10-20] MEDS: PANTOprazole 40 MG TAB PO SCH (09:22)
[2021-10-20] MEDS: DOCUSATE SODIUM 100 MG CAP PO SCH (09:22)
[2021-10-20] MEDS: POLYETHYLENE (MIRALAX) 17 GM PACK PO SCH (09:23)
[2021-10-20] MEDS: SENNA 8.6 MG TAB PO SCH (09:23)
--- NOTE | 2021-10-20 10:28 | Pulmonology Progress Note ---
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 He is status postthoracentesis 10/18/2021. Cytology consistent with metastatic adenocarcinoma Recommendations: 1. Pleural effusion: Malignant. Awaiting follow-up chest x-ray today. If the fluid rapidly reaccumulate's, consideration for placement of an indwelling tunn eled pleural catheter might be appropriate. This can be performed with the patient's anticoagulation is held. 2. PE: Patient reportedly was in contact with his spine surgeon in [facility] and was advised that he can restart his systemic anticoagulation in the next 24 hours. This may be contributing to some of his tachycardia 3. Hypoxemia: Secondary to #1 and #2. Wean oxygen as tolerated. The patient may need to be assessed for supplemental oxygen prior to discharge 4. Adenocarcinoma of the lung: Management per [facility]. May be beneficial to have local medical oncology involved with the patient's care as well. The above recommendations and plan were discussed with the patient at bedside. He expressed understanding and is in agreement with the plan as Admission and Anticipated Discharge Date Admission Date: October 18, 2021 Subjective Patient seen and examined. EMR reviewed. He states he is feeling somewhat better. He is not yet had his x-ray as he took a laxative this morning. He is not coughing or expectorating phlegm. No additional chest pain. No syncope or presyncope. No pain at the prior thoracentesis Review of Systems Review of Systems: All systems reviewed & are unremarkable except as noted in Subjective Physical Exam Physical Exam: PHYSICAL EXAM: General: awake, alert, no apparent distress Head: Normocephalic, atraumatic ENT: PERRLA, EOMI, no pharyngeal exudate, mucous membranes moist Neuro: AAO x 3, speech clear and appropriate, strength intact bilaterally 5/5, sensation intact and equal all extremities and dermatomes, no pronator drift Chest: equal rise and fall of the chest, no accessory muscle use, no heaves or thrills, decreased in the bases bilaterally Cardiac: Regular rate and rhythm, telemetry reviewed, skin warm dry, cap refill <3 seconds, peripheral pulses +2 no JVD, no murmur, no edema GI: NABS x 4 quadrants, soft, nontender to palpation, no rebound, guarding or tenderness : Spontaneously voiding, no pain, no CVA tenderness, Psych: Normal mood and affect Skin: scar to back healing, PICC line dressing intact Results & Data Results & Data ([facility]) Vital Signs (Past 12 Hours) Vital Signs Temp Pulse Pulse Resp BP Pulse Ox O2 Del Method 10/20/21 09:42 Nasal Cannula 10/20/21 09:26 37.1 C 118 H 18 108/70 91 Nasal Cannula 10/20/21 08:26 37.5 C 140 H 21 114/76 90 Nasal Cannula 10/20/21 07:02 116 H 10/20/21 04:00 37.2 C 109 H 18 106/69 94 Nasal Cannula 10/20/21 00:00 118 H 10/19/21 23:00 37.7 C H 126 H 18 102/78 90 Nasal Cannula O2 Flow Rate 10/20/21 09:42 3 10/20/21 09:26 3 10/20/21 08:26 3 10/20/21 07:02 10/20/21 04:00 3 10/20/21 00:00 10/19/21 23:00 3 Laboratory Results 10/20/21 06:15 10/20/21 06:15 Pleural fluid cytology: Consistent with metastatic adenocarcinoma Diagnostic Findings Chest x-ray pending PG Care Time/CCT Total # of Minutes Spent Total Time Spent with Patient: Total time spent is greater than 50% in coordination of care (as documented) at patient's floor/unit and/or counseling patient: Coding Level of Care Code 38642 Subseq Hosp Care Lvl 2 Diagnoses Pleural effusion J90 Pulmonary embolism I26.99 Hypoxia R09.02 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 C34.91; C78.7
[2021-10-20] MEDS: VANCOMYCIN HCL 1,500 MG in SODIUM CHLORIDE 0.9% 500 ML IV SCH (11:50)
--- NOTE | 2021-10-20 12:56 | XRay Report ---
TWO VIEW CHEST CLINICAL HISTORY: Pleural effusion. FINDINGS: PA and lateral chest radiographs are compared to performed earlier the same day 10/19/2021 a nd correlated with chest CT dated 10/18/2021. A right PICC line is unchanged in position. The heart is mildly enlarged. There is a small right pleural effusion with associated right basilar consolidation . Loculated fluid is again seen in the right upper lobe lung the major fissure. No pneumothorax is id entified. The bony thorax is grossly intact. Extensive spinal fusion hardware is in place IMPRESSION: 1. There is a small right pleural effusion with right basilar consolidation. The pleural effusion is similar in size to yesterday. Right basilar opacities have partially cleared as compared to yesterday . 2. The left lung is grossly clear. 3. Cardiomegaly without radiographic evidence of congestive failure. ACT 112: Negative or not required by law. Electronically signed by: Clay Neri M.D. 10/20/2021 12:55 PM
--- NOTE | 2021-10-20 15:54 | Discharge Summary ---
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 Receives majority of his cancer care at [facility], PE, DVT, IVC filter placement, Thoracic spine surgery at [facility] August 2021, wound evisceration 09/29 with wound vac and PICC placement, 13 October- Lumbar tumor resection/biopsy and IVC filter placement. He comes to the EMD today for complaints of dyspnea. He was noted to have increase in right sided pleural effusion, this was compared to his scan done in June 2021. This was drained in the EMD by Dr. Jordan for 2 Liters of serous/sang fluid. Test ing is pending. The patient also had a CTA of the chest completed which noted a left upper lobe segmental/subsegmental PE. He also had routine labs drawn which included a HScTNI for dyspnea by [facility]. This was elevated to 125.3. His ECG is without acute ST elevation and no symptoms of chest pain. He is on maintenance therapy of Osimertinib. Patient had PE noted in 03/30 and was placed on Xarelto at that time with his workup and cancer diagnosis. This was started in the setting of worsening cervical and thoracic back pain. He had his lung biopsy and bronchoscopy at [facility]. He had repeat CT scan done in June which did not note any PE, he continued with his upper spine surgery in September this was complicated by above, with wound evisceration requiring wound-vac placement and PICC placement for empiric Vancomycin therapy. While that was ongoing they noted lumbar mass/lesion which was biopsied and resected in October 13. He also had IVC placed at that time with plan to remove in 6 months,as they noted lower extremity VTE during that stay. He was discharged on DVT/PE Lovenox for further prevention. For his chronic back pain he is on Morphine Extended release 30mg q12 and with breakthrough of oxycodone 10-15 mg every 6 hours as needed. For adjunctive therapy he is receiving Tylenol, lidocaine patches, which he feels are effective and has Valium and/or Robaxin at home for muscle spasms. He does not use the Robaxin if he takes the Valium. Oncologist is Dr. Mosqueda with [facility]- Dr. Pressley His COVID test on admission is: NEGATIVE Principal Diagnosis Malignant pleural effusion, Hypoxia, PE, Anemia Discharge Exam Constitutional WD/WN, vitals as above Eyes + anicteric sclerae ENMT external ear and nose normal, oropharynx normal Neck trachea midline, no thyromegaly Respiratory normal respiratory effort; no labored breathing and no cough Auscultation: + diminished lung sounds (at right base); no crackles, no rhonchi and no wheezes Cardiovascular Rate/Rhythm: regular rate and regular rhythm Heart Sounds: no murmur Extremities: + edema (1+ pitting edema ankles bilat) Chest (Breasts) Chest: normal inspection of chest Gastrointestinal (Abdomen) normal bowel sounds, soft, nontender, no hepatosplenomegaly Musculoskeletal Extremities: extremities normal to inspection; no cyanosis and no clubbing Skin no rashes, warm and dry + wound (well-healing wounds upper & mid back with sutures in place over spine) Neurologic moves all extremities and awake; no focal motor deficits Psychiatric A+Ox3, euthymic affect Discharge Data Allergies Allergy/AdvReac Type Severity Reaction Status Date / Time gabapentin AdvReac Migraine Verified 09/15/21 13:53 Consultations 10/18/21 17:27 ED Decision to Admit Stat 10/18/21 21:29 Consult Pulmonology Routine Ordered Studies 10/18/21 14:00 CT angio chest PE protocol Stat Hospital Course (1) Pleural effusion: Acute on chronic- increased since June with compressive atelectasis Thoracentesis completed by Dr. Jordan on admission, removed 2L fluid Pleural fluid c/w exudative effusion Cytology showing metastatic adenocarcinoma No postoperative pneumothorax or pulmonary edema, repeat CXR shows slight reaccumulation of Rt effusion but no further reaccumulation on CXR PA/LAT on day of discharge Pulmonary consultation appreciated -long-term management options to include serial thoracentesis, indwelling tunneled pleural catheter, or pleurodesis given cytology positive. However, since fluid not rapidly accumulating, no need at this time for procedure f/u with PULM as needed for repeat thoracentesis in future -continue incentive spirometry -continue supplemental O2 to keep POx> 90-92%-needs 2L at rest and 3LNC with exertion on discharge (2) Acute respiratory failure with hypoxia: Acute respiratory failure with hypoxia secondary tomalignant pleural effusion and PE also due to lung CA, and atelectasis currently requiring 2L at rest and 3LNC w/ exertion on discharge No home O2 previously -continue on ICS now s/p thoracentesis as above (3) Pulmonary embolism: Acute on Chronic- with IVC filter placement as well as reported Lower extremity DVT during hospitalization at - With new PE in left upper lobe segmental and subsegmental -He had a CT angiogram of the chest on October 05-I reviewed his personal portal on his cell phone-it showed no PE at that time but was nondiagnostic for segmental and subsegmental arteries due to respiratory motion and poor opacification - Thoracic spine surgery -14 of October- Xarelto has been hold since that time - IVC filter in place to prevent large PE resulting in mortality -I discussed his case with his spine surgeon on the phone on 10/19-he is okay for the patient to restart Xarelto at postop day 7 which will be 10/20 -Plan to start Xarelto 20 mg daily with dinner on 10/20 and discontinued Lovenox SQ -Watch for focal neurological symptom development which would indicate hematoma in the spine-discussed with pt and his family (4) Anemia: hgb trending downward to 8.2 since admission hemoglobin of 9.3 likely 2/2 hemodilutional effect with some fluids He had a normal hemoglobin just 4 months ago no bleeding from anywhere currently, except effusion did have 83330 RBCs He reports large amounts of blood loss during both his recent spine surgeries in the last 6 weeks, required multiple PRBCs transfused Suspect this is blood loss anemia His Tagrisso can cause anemia so in part could be due to this is a chemotherapeutic side effect checked iron studies which showed significant iron deficiency with transferrin saturation of 6% -gave Venofer 300mg IV x 1 here and will send out on po FeSO4 325mg po bid f/u CBC with PCP in 1 week (5) S/P IVC filter: - placed at plan removal in 6 months reported (6) Elevated troponin: Routinely drawn in the EMD elevated at 125 and then's trended slightly upward over serial lab draws to 148 - no acute ST elevation no chest pain complaints - likely secondary to pulmonary stress, dyspnea and hypoxia type II demand (7) Spinal cord compression 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: As above- resected and biopsied -14 October Also, continue IV vancomycin which is as prescribed through PICC line from [facility] for prophylaxis given large muscle flap by plastic surgeon over open spinal wound. 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: Continue his targeted therapy with Osimertinib - continue follow up with [facility] primary oncologist Plan DVT prophylaxis-Lovenox SQ transitioning to Xarelto Disposition-dc to home today Total Time Total Time Spent Total Time Spent (In Minutes): 45 min Total Time Includes: Examination of the Patient, Discharge Planning, Medication Reconciliation and Communication With Other Providers (Pulm) Discharge Plan Discharge Items Patient Disposition: Home - Home Health Services Reason For Visit: DYSPNEA, PLEURAL EFFUSION, PE Discharge Diagnosis: Pleural effusion, anemia, Pulmonary embolism, Hypoxia Condition on Discharge: Fair Activity: As commented below Lifting: Gradually increase as tolerated Exercise/Sports: As tolerated Non-emergency contact: Primary Care Provider, Surgeon and Oncologist Call non-emergency contact if: you have any medication questions, your symptoms worsen, your pain is not controlled and your pain is worsening Follow-up/Referrals: Jonah Mcadams DO [Physician] - 10/27/21 9:20 am Justin Meyers MD [Physician] - (Follow up as needed for your pleural effusion) Beatriz East MD [Primary Care Provider] - (Please follow up within 1 week.) Diet: Regular Addtl Attending Provider Instructions: You can restart your Xarelto today 10/20/21. Please watch out for any signs of bleeding at your surgical site such as numbness, weakness, tingling of your arms or legs, or bleding or bruising around your wound sites. You had fluid drained from around your right lung. You will need oxygen to take home--> use 2 Liters at rest and 3 Liters with walking around. If you have worsening shortness of breath, please have Dr. East order you a chest xray to see if you need repeat drainage with Dr. Meyers. You are anemic and were treated for this with IV iron. You can take oral iron pills after discharge and have Dr. East check your blood count at your follow up appointment. Pending Studies at Discharge: Yes (final culture from pleural fluid) Stand-Alone Forms: [facility], Smoking Cessation Medications and DC Order Prescriptions: New Xarelto 20 mg Tablet 20 mg PO QDD Qty: 30 0RF ferrous sulfate 325 mg (65 mg iron) tablet 325 mg PO BID Qty: 60 0RF Rx Instructions: OTC Continued duloxetine 60 mg capsule,delayed release(DR/EC) 60 mg PO DAILY Qty: 90 1RF Tagrisso 80 mg tablet 80 mg PO DAILY Qty: 30 0RF acetaminophen 500 mg Tablet 1,000 mg PO Q6H PRN (Reason: Mild Pain (Scale Score 1-4)) methocarbamol 750 mg Tablet 750 mg PO QID PRN (Reason: Muscle Spasm) morphine [MS Contin] 30 mg Tablet Extended Release 30 mg PO Q12H omeprazole 20 mg Capsule,Delayed Release(Dr/Ec) 20 mg PO DAILY oxycodone 10 mg tablet 10 - 15 mg PO Q6H PRN (Reason: pain) diazepam 5 mg Tablet 5 mg PO TID PRN (Reason: muscle spasms) docusate sodium 100 mg Capsule 100 mg PO BID PRN (Reason: Constipation) ondansetron 4 mg Tablet,Disintegrating 4 mg PO Q8H PRN (Reason: Nausea) lidocaine [Lidoderm] 5 % Adhesive Patch,Medicated 1 patch TOPICAL DAILY PRN (Reason: Pain) vancomycin in dextrose 5 % 1 gram/250 mL Solution 1 g IV Q24H Rx Instructions: q24h @ 1000 X 4-6 weeks (start date ~10/07/21 per pt family) Discontinued enoxaparin 40 mg/0.4 mL Syringe 40 mg SUBCUT DAILY Rx Instructions: X 17 days, then switch back to Xarelto Discharge Orders: Discharge Order (Routine); Ordered 10/20/21 Ordered By: Sanjuana Schmitt Admission Data Admit Date/Time: 10/18/21 18:57 Attending Provider: Sanjuana Schmitt Admit Provider: Sabino Brennan Primary Care Provider: Beatriz East Other Providers: Sabino Brennan ; Justin Meyers ; [facility] Coding Level of Care Code D/C DAY MANAGEMENT >30 MINS Diagnoses Pleural effusion J90 Acute respiratory failure with hypoxia J96.01 Pulmonary embolism I26.99 Anemia D64.9 Anemia type: unspecified type S/P IVC filter Z95.828 Elevated troponin R77.8 Spinal cord compression 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
[2021-10-20] MEDS: OSIMERTINIB MESYLATE PO SCH (16:11)
[2021-10-20] MEDS ORDERED: RIVAROXABAN 20 MG TAB PO SCH (16:30)
[2021-10-20] MEDS: HYDROmorphone INJ 0.5 MG/0.5 ML SYR IV PRN (16:32)
[2021-10-21] MEDS ORDERED: VANCOMYCIN LEVEL ONE (09:30)
== END 2021-10-20 17:15 | disposition home health service (06) | DRG 180 ==
LOC: ED 13:22 → 2N 18:57 → SUATTDRO 18:57 → 2N 20:44

== ENCOUNTER 2021-12-23 19:36 | Inpatient (IN) ==
[2021-12-23] MEDS ORDERED: ONDANSETRON INJ 2 MG/ML 2 ML VIAL IV STA (20:39)
[2021-12-23] MEDS ORDERED: SODIUM CHLORIDE 0.9% 1000ML 1,000 ML IV SCH (20:45)
--- NOTE | 2021-12-23 20:48 | Emergency Department Note ---
ED Visit Note The patient was referred by his doctors office to the ED. The patient was to be seen directly by Dr. Jackson of internal medicine, the on-call hospitalist. Patient was not seen directly by an ED physician or midlevel. .
[2021-12-23] MEDS ORDERED: ACETAMINOPHEN 1,000 MG/100 ML VIAL IV PRN (20:53)
[2021-12-23] MEDS ORDERED: FAMOTIDINE 20 MG in SYRINGE 3 ML IV ONE (21:00)
[2021-12-23 21:46] LABS: Basophils # (auto) 0.01 K/uL (0-0.2); Basophils % (auto) 0.3 %; Eosinophils # (auto) 0.01 K/uL (0-0.50); Eosinophils % (auto) 0.3 %; Hematocrit (blood only) 23.2 % (40.1-51.0); Immature Granulocytes # (auto) 0.19 K/uL (0.00-0.02); Immature Granulocytes % (auto) 4.8 %; Mean Corpuscular Hemoglobin 24.6 pg (25.0-34.0); Mean Corpuscular Hgb Conc 30.2 g/dL (32.0-36.0); Mean Corpuscular Volume 81.4 fL (80.0-100.0); Mean Platelet Volume 9.7 fL (9.4-12.4); Monocytes % (auto) 12.5 %; Neutrophils # (auto) 2.88 K/uL (1.4-6.5); Neutrophils % (auto) 72.1 %; Platelet Count 330 K/uL (130-400); RDW Coefficient of Variation 17.6 % (11.5-14.5); RDW Standard Deviation 47.5 fL (36.4-46.3); Red Blood Count 2.85 M/uL (4.63-6.08); White Blood Count 3.99 K/ul (4.8-10.8)
[2021-12-23] MEDS ORDERED: FAMOTIDINE 20MG/5ML IV PUSH IV ONE (22:00)
[2021-12-23 22:11] LABS: Alanine Aminotransferase 9 U/L (7-52); Albumin Globulin Ratio 0.9 (0.9-2); Alkaline Phosphatase 110 U/L (34-104); Anion Gap 7 (3-11); Aspartate Aminotransferase 13 U/L (13-39); BUN Creatinine Ratio 22.7 (10-20); Bilirubin,Total 0.5 mg/dl (0.2-1.0); Blood Urea Nitrogen 15 mg/dl (6-23); Calcium 9.1 mg/dl (8.5-10.1); Carbon Dioxide 33 mmol/L (21-32); Chloride 98 mmol/L (98-107); Est GFR (African American) 120.1 ml/min; Est GFR (Non-African American) 103.6 ml/min; Globulin 3.4 gm/dl (2.5-4.0); Glucose 93 mg/dl (70-99(Fasting)); Magnesium 1.5 mg/dl (1.7-2.4); Potassium 3.4 mmol/L (3.5-5.1); Sodium 138 mmol/L (136-145); Total Protein 6.4 gm/dl (6.0-8.3)
[2021-12-23 22:19] LABS: Anisocytosis Present; Ovalocytes 1+; Polychromasia 1+
[2021-12-23] MEDS ORDERED: SODIUM CHLORIDE 0.9% 250 ML IV PRN (22:30)
[2021-12-23] MEDS ORDERED: CEFEPIME 2,000 MG in SYRINGE 0 ML IV ONE (22:45)
[2021-12-23] MEDS ORDERED: DAPTOmycin 500 MG in SYRINGE 0 ML IV ONE (22:45)
[2021-12-23] MEDS ORDERED: ACETAMINOPHEN 1000 MG/100 ML IV IV PRN (23:43)
[2021-12-24] MEDS ORDERED: ACETAMINOPHEN 1,000 MG/100 ML VIAL IV PRN (01:08)
[2021-12-24] MEDS ORDERED: MoRPHine SULFATE 4 MG/ML 1 ML CARP\\VIAL IV PRN (01:08)
--- NOTE | 2021-12-24 01:10 | History & Physical Report ---
Date of Service December 24, 2021 the patient was seen and examined on 12/23/21 Assessment & Plan (1) Pressure ulcer of ischium: Plan: Pressure ulcer/wound infections/Enterobacter cloacae/Enterococcus faecalis- As noted in outpatient cultures Sensitivities include to daptomycin 6 mg/kg IV every 24 hours, and cefepime 2 g IV every 8 hours Consult wound care (2) Wound infection: Plan: Admitted due to failure of outpatient with Augmentin and doxycycline (3) Failure of outpatient treatment: Plan: Hold doxycycline and Augmentin (4) Antineoplastic chemotherapy induced anemia: Plan: Hemoglobin 7.0 upon admission Transfused 2 units PRBCs irradiated and local reduced H&H to be repeated in a.m. 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: Plan: Adenocarcinoma of right lung with metastases to liver and bone- Most recent chemotherapy 2 weeks ago (10) Bone metastases: Plan: Pain control with acetaminophen and morphine as noted (11) Pulmonary embolism: Plan: Pulmonary embolism/status post IVC filter- Has been on Xarelto, which will be held Start Lovenox 1 mg kilogram subcu every 12 hours (12) S/P IVC filter: (13) Incomplete paraplegia: Admission and Anticipated Discharge Date Admission Date: December 23, 2021 History of Present Illness Chief Complaint: The patient was referred to the emergency department by his PCP due to progressively worsening sacral decubitus wounds that have since grown Enterococcus faecalis and Enterobacter cloacae while on Augmentin and doxycycline Primary Care Provider: Beatriz East MD The patient is a 61-year-old male with a past medical history including chemotherapy-induced neutropenia, sacral decubitus wound infections, pressure ulcer of ischium, chemotherapy-induced nausea, incomplete paraplegia, cancer pain syndrome, anemia, malignant pleural effusion, status post IVC filter, PE, metastatic lung cancer to liver and bone. The patient was referred to the emergency department/direct admission after failure of outpatient treatment with Augmentin and doxycycline, with cultures growing Enterococcus faecalis Enterobacter cloacae. The patient complains of fatigue, and generalized malaise, as noted by family in attendance Allergies Allergy/AdvReac Type Severity Reaction Status Date / Time escitalopram AdvReac Intermediate Nausea Verified 12/23/21 21:23 gabapentin AdvReac Migraine Verified 12/23/21 21:23 Home Medications Medication Instructions Recorded Confirmed Type acetaminophen 500 mg tablet 1,000 mg PO Q6H PRN Mild Pain 10/18/21 12/23/21 History (Scale Score 1-4) lidocaine 5 % topical patch 1 patch topical DAILY PRN Pain 10/18/21 12/23/21 History (Lidoderm) oxycodone 10 mg tablet 20 mg PO Q6H PRN pain 10/27/21 12/23/21 History sennosides 8.6 mg tablet (Natural 8.6 mg PO BID #180 tabs 10/27/21 12/23/21 Rx Senna Laxative) rivaroxaban 20 mg tablet (Xarelto) 20 mg PO QDD #90 tabs 10/28/21 12/23/21 Rx pantoprazole 40 mg tablet,delayed 40 mg PO DAILY 12/08/21 12/23/21 History release lactulose 10 gram/15 mL oral 20 g PO QID PRN Constipation 12/10/21 12/23/21 History solution amoxicillin 875 mg-potassium 1 tab PO BID 10 days #20 tabs 12/14/21 12/23/21 Rx clavulanate 125 mg tablet doxycycline hyclate 100 mg capsule 100 mg PO BID 10 days #20 caps 12/15/21 12/23/21 Rx pregabalin 75 mg capsule 75 mg PO TID #90 caps 12/17/21 12/23/21 Rx lidocaine HCl 4 % topical pump See Rx Instructions topical 12/18/21 12/23/21 Rx spray .COMPLEX #104 mL morphine 30 mg tablet,extended 30 mg PO Q12H #60 tabs 12/18/21 12/23/21 Rx release ondansetron 8 mg disintegrating 8 mg PO Q8H PRN Nausea #90 tabs 12/18/21 12/23/21 Rx tablet sodium hypochlorite 0.125 % 1 applic topical DAILY #473 mL 12/18/21 12/23/21 Rx solution (Dakin's Solution) docusate sodium 100 mg tablet 100 mg PO BID PRN Constipation 12/23/21 12/23/21 History folic acid 1 mg tablet 1 mg PO DAILY 12/23/21 12/23/21 History prochlorperazine maleate 10 mg 10 mg PO Q8 PRN Nausea 12/23/21 12/23/21 History tablet Past Med/Surg History Medical History (Updated 12/24/21 @ 01:02 by Gil Redmond MD) 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 Bone metastases Elevated troponin 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 Pleural effusion Pulmonary embolism Small intestinal bacterial overgrowth (SIBO) Spinal cord compression 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 Stage 4 lung cancer Surgical History (Updated 10/29/21 @ 09:13 by Nanette Luciano, DEWEY) History of ankle surgery Hx of spinal fusion C6-T12 at [facility] [address] [place] S/P IVC filter Family History Father Throat cancer Denies family history of Ovarian cancer Prostate cancer Myocardial infarction Breast cancer Colorectal cancer Social History Smoking Status: Never smoker Second Hand Exposure: No; Do You Dip or Chew Tobacco: No; Tobacco Cessation Education Requested by Patient: No Hx Alcohol Use: No Hx Substance Use: No Preferred Language: Jordanian Communication Ability: Effective Visual Impairment: No Limitations Hearing Ability: Normal Tunnel Man Required: No Beliefs That Will Affect Care: None marital status: Current Living Situation: Spouse current occupational status: employed Feels Safe at Home: Yes Safety Concerns: Feels Safe At This Time Childhood Exposure to Second-Hand Smoke: Yes Dental Care, Regularly: Yes Physical Activity Frequency: Daily Seatbelt Use: sometimes Sunscreen Use: Yes Assistive Devices: Wheelchair Review of Systems Review of Systems: The patient denies chest pain, palpitations, shortness of breath, dyspnea on exertion, cough, lower extremity swelling, sore throat, fevers, chills, sweats, vomiting, diarrhea , constipation, abdominal pain, pelvic pain, blood in urine or stool, dysuria, urinary frequency or urgency, lightheadedness, dizziness, headache, memory loss, loss of consciousness, rash, abnormal bruising or bleeding, focal or generalized weakness, numbness or tingling in arms, neck pain, or night sweats. The review of systems is otherwise negative other than for that already noted above, and at least 10 systems have been reviewed. Physical Exam Physical Exam: The patient is awake, lethargic, looks pale and fatigued, normocephalic and atraumatic, lying in bed and in no acute distress. HEENT--PERRL, EOMI, mucous membranes and oropharynx dry. Neck--supple. No JVD. No bruits. Thyroid normal, trachea midline, no adenopathy. Heart--normal S1 and S2. No murmurs, rubs or gallops. Lungs--clear bilaterally, no respiratory distress, no accessory muscle use. Abdomen--normal bowel sounds and soft. Nontender. Nondistended, no hernias or masses, no organomegaly. Extremities--no cyanosis or clubbing. No edema. Dermatologic--pressure ulcers noted Neurologic--cranial nerves II through XII grossly intact. Rheumatologic--limited exam Psychiatric--normal affect. Results & Data Results & Data ([facility]) Vital Signs (Past 12 Hours) Vital Signs Temp Pulse Pulse Resp BP BP Pulse Ox 12/24/21 00:33 36.9 C 125 H 20 90/65 L 96 12/23/21 23:00 37.5 C 127 H 17 95/70 L 94 12/23/21 23:00 124 H 12/23/21 21:37 130 H 21 108/74 94 12/23/21 20:05 36.9 C 144 H 18 104/72 93 O2 Del Method O2 Flow Rate 12/24/21 00:33 12/23/21 23:00 Nasal Cannula 2 12/23/21 23:00 Nasal Cannula 2 12/23/21 21:37 Nasal Cannula 2 12/23/21 20:05 Laboratory Results Laboratory Results WBC 3.99 K/ul (4.8-10.8) L 12/23/21 21:25 RBC 2.85 M/uL (4.63-6.08) L 12/23/21 21:25 Hgb 7.0 g/dl (14.0-18.0) L 12/23/21 21:25 Hct 23.2 % (40.1-51.0) L 12/23/21 21:25 MCV 81.4 fL (80.0-100.0) 09/15/22 21:25 MCH 24.6 pg (25.0-34.0) L 12/23/21: MCHC 30.2 g/dL (32.0-36.0) L 12/23/21: RDW Std Deviation 47.5 fL (36.4-46.3) H 12/23/21: RDW Coeff of Sudhakar 17.6 % (11.5-14.5) H 12/23/21: Plt Count 330 K/uL (130-400) 12/23/21: MPV 9.7 fL (9.4-12.4) 12/23/21: Immature Gran % (Auto) 4.8 % 12/23/21: Neut % (Auto) 72.1 % 12/23/21: Lymph % (Auto) 10.0 % 12/23/21: [place] % (Auto) 12.5 % 12/23/21: Eos % (Auto) 0.3 % 12/23/21: Baso % (Auto) 0.3 % 12/23/21: Neut # (Auto) 2.88 K/uL (1.4-6.5) 12/23/21: Lymph # (Auto) 0.40 K/uL (1.2-3.4) L 12/23/21: [place] # (Auto) 0.50 K/uL (0.24-0.82) 12/23/21: Eos # (Auto) 0.01 K/uL (0-0.50) 12/23/21: Baso # (Auto) 0.01 K/uL (0-0.2) 12/23/21: Immature Gran # (Auto) 0.19 K/uL (0.00-0.02) H 12/23/21: Polychromasia 1+ 12/23/21: Anisocytosis Present 12/23/21: Ovalocytes 1+ 12/23/21: Sodium 138 mmol/L (136-145) 12/23/21: Potassium 3.4 mmol/L (3.5-5.1) L 09/15/22 21:25 Chloride 98 mmol/L (98-107) 12/23/21 21:25 Carbon Dioxide 33 mmol/L (21-32) H 12/23/21 21:25 Anion Gap 7 (3-11) 12/23/21 21:25 BUN 15 mg/dl (6-23) 12/23/21 21:25 Creatinine 0.66 mg/dl (0.6-1.4) 12/23/21 21:25 Est Cr Clr Drug Dosing Not Reportable 12/23/21 21:25 Est GFR ( Amer) 120.1 ml/min 12/23/21 21:25 Est GFR (Non-Af Amer) 103.6 ml/min 12/23/21 21:25 BUN/Creatinine Ratio 22.7 (10-20) H 12/23/21 21:25 Glucose 93 mg/dl (70-99(Fasting)) 12/23/21 21:25 Lactate 1.6 mmol/L (0.4-2.0) 12/23/21:45 Calcium 9.1 mg/dl (8.5-10.1) 12/23/21 21:25 Magnesium 1.5 mg/dl (1.7-2.4) L 12/23/21 21:25 Total Bilirubin 0.5 mg/dl (0.2-1.0) 12/23/21 21:25 AST 13 U/L (13-39) 12/23/21 21:25 ALT 9 U/L (7-52) 12/23/21 21:25 Alkaline Phosphatase 110 U/L (34-104) H 12/23/21 21:25 Total Protein 6.4 gm/dl (6.0-8.3) 12/23/21 21:25 Albumin 3.0 gm/dl (3.4-5.0) L 12/23/21 21:25 Globulin 3.4 gm/dl (2.5-4.0) 12/23/21 21:25 Albumin/Globulin Ratio 0.9 (0.9-2) 12/23/21 21:25 SARS-CoV-2, RNA, NAAT NEGATIVE (NEGATIVE) 12/23/21 21:14 Blood Type A Positive 12/23/21 22:45 Antibody Screen NEGATIVE 12/23/21 22:45 Crossmatch See Detail 12/23/21 22:45 Code Status & VTE Plan Code Status Full code VTE Prophylaxis Plan VTE Prophylaxis will be ordered: Yes PG Care Time/CCT Total # of Minutes Spent Total Time Spent with Patient: Total time spent is greater than 50% in coordination of care (as documented) at patient's floor/unit and/or counseling patient: Coding Level of Care Code 68655 Initial Inpt Care Lvl 3 Diagnoses Pressure ulcer of ischium L89.309 Wound infection T14.8XXA; L08.9 Failure of outpatient treatment Z78.9 Antineoplastic chemotherapy induced anemia D64.81; T45.1X5A Chemotherapy induced neutropenia D70.1; T45.1X5A Chemotherapy-induced nausea R11.0; T45.1X5A Enterococcus faecalis infection B95.2 Infection due to Enterobacter cloacae A49.8 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
[2021-12-24] MEDS: MAGNESIUM SULFATE / D5W 1 GM/100 ML BAG IV SCH ×6 (05:15→18:41)
[2021-12-24] MEDS: NSS + 20MEQ KCL 20 MEQ/1,000 ML BAG IV SCH ×3 (05:15→17:48)
[2021-12-24] MEDS: CEFEPIME 2,000 MG in SYRINGE 0 ML IV SCH ×2 (05:16→14:37)
[2021-12-24 06:11] LABS: Basophils # (auto) 0.01 K/uL (0-0.2); Basophils % (auto) 0.3 %; Eosinophils # (auto) 0.01 K/uL (0-0.50); Eosinophils % (auto) 0.3 %; Hematocrit (blood only) 24.3 % (40.1-51.0); Hemoglobin 7.9 g/dl (14.0-18.0); Immature Granulocytes # (auto) 0.12 K/uL (0.00-0.02); Immature Granulocytes % (auto) 3.5 %; Lymphocytes # (auto) 0.51 K/uL (1.2-3.4); Mean Corpuscular Hemoglobin 26.4 pg (25.0-34.0); Mean Corpuscular Hgb Conc 32.5 g/dL (32.0-36.0); Mean Corpuscular Volume 81.3 fL (80.0-100.0); Mean Platelet Volume 9.4 fL (9.4-12.4); Monocytes # (auto) 0.51 K/uL (0.24-0.82); Neutrophils # (auto) 2.23 K/uL (1.4-6.5); Neutrophils % (auto) 65.9 %; Platelet Count 260 K/uL (130-400); RDW Coefficient of Variation 17.1 % (11.5-14.5); RDW Standard Deviation 47.5 fL (36.4-46.3); Red Blood Count 2.99 M/uL (4.63-6.08); White Blood Count 3.39 K/ul (4.8-10.8)
[2021-12-24 06:32] LABS: Albumin Level 2.6 gm/dl (3.4-5.0); Bilirubin,Total 0.6 mg/dl (0.2-1.0); Calcium 8.4 mg/dl (8.5-10.1); Creatinine Clr Calc Pharmacy 152.6 ml/min; Est GFR (African American) 124.9 ml/min; Est GFR (Non-African American) 107.8 ml/min; Globulin 2.7 gm/dl (2.5-4.0); Magnesium 1.5 mg/dl (1.7-2.4); Potassium 3.5 mmol/L (3.5-5.1); Total Protein 5.3 gm/dl (6.0-8.3)
[2021-12-24 06:44] LABS: Ovalocytes 1+
[2021-12-24] MEDS ORDERED: SODIUM CHLORIDE 0.9% 1000ML 1,000 ML IV ONE (07:09)
--- NOTE | 2021-12-24 07:15 | Hospitalist Progress Note ---
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 Acute hypoxic respiratory failure: - On presentation was not complaining of cough or dyspnea from baseline, however today developed wet cough and dyspnea requiring supplemental oxygen. - Currently on Non-rebreather, resting comfortably. - CT Chest ordered which shows large right sided-pleural effusion, not loculated, more likely malignant effusion as opposed to infected effusion, though not impossible. - Pulmonology consulted for thoracentesis. Also recommended to escalate antibiotics to vancomycin/meropenem. (2) Malignant pleural effusion: Plan: see above (3) Pressure ulcer of ischium: Plan: - Enterobacter cloacae and Enterococcus faecalis growing in outpatient cultures. - Presented tachycardic and leukopenic, and today developed fever. - Sepsis suspected to be secondary to skin/soft tissue infection, however will also cover for pneumonia. - Sensitivities include to daptomycin and cefepime ->escalated to vanc/meropenem for extended MRSA/Pseudomonas coverage - Wound care consulted, recommended Gen. Surg for consideration of debridement. - Gen Surg consulted. (4) Wound infection: Plan: - Admitted due to failure of outpatient with Augmentin and doxycycline. - See above. (5) Failure of outpatient treatment: Plan: - Hold doxycycline and Augmentin. (6) Antineoplastic chemotherapy induced anemia: Plan: - Hemoglobin 7.0 upon admission. - Transfused 2 units PRBCs irradiated and local reduced. - Repeat Hgb 7.9 with repeat 7.9; repeat in AM. (7) Chemotherapy induced neutropenia: Plan: - Recently was neutropenic, however, ANC this admission is no longer neutropenic. - Follow laboratory serially. (8) Chemotherapy-induced nausea: Plan: - Zofran 4 mg IV every 6 hours as needed. 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 - Most recent chemotherapy 2 weeks ago. (10) Bone metastases: Plan: - Pain control with acetaminophen and morphine as noted. (11) Pulmonary embolism: Plan: - History of PE s/p IVC filter. - Has been on Xarelto, which will be held for thoracentesis tomorrow. (12) S/P IVC filter: Plan: see above (13) Incomplete paraplegia: (14) Goals of care, counseling/discussion: Plan: Code Status: FULL CODE - Time in room: 5:30pm, Time out: 6:05pm. Today following patient's decline in respiratory status, had conversation with today to confirm code status. Patient has a living will which states that in the event of his inability to answer for himself, that he would defer to his 's choice. When asked if he would want chest compressions or intubation, he asked me to ask his . Long discussion had about the likelihood that ACLS would be unsuccessful and traumatic due to lytic bone lesions, poor state of health, metastatic cancer, etc. I also explained that doing chest compressions or defibrillation without intubation (or vice versa) is generally unsuccessful due to need for oxygen to the tissues. After this conversation, was firm about patient's full code status, which the patient agrees to. Plan FEN: Regular DVT ppx: holding chemoppx for thoracentesis tomorrow, resume when able Dispo: Telemetry Admission and Anticipated Discharge Date Admission Date: December 23, 2021 Subjective Today complaining of cough with difficulty "getting up phlegm". Initially given Mucinex, IS, flutter without improvement. Oxygen demand increased and very quickly patient required Oxymask. CT Chest ordered which showed large R sided pleural effusion. Review of Systems Constitutional: no fever and no chills Respiratory: + cough and + dyspnea Cardiovascular: no chest pain and no palpitations Gastrointestinal: no abdominal pain, no nausea and no vomiting Physical Exam Constitutional: WD/WN, vitals as above Respiratory: normal respiratory effort, tachypneic, decreased breath sounds on right lung field compared to left; basilar crackles noted in left base Cardiovascular: regular rhythm, tachycardic, no murmurs Gastrointestinal (Abdomen): normal bowel sounds, soft, nontender, no hepatosplenomegaly Skin: no rashes, warm and dry Psychiatric: A+Ox3, euthymic affect Results & Data Results & Data ([facility]) Vital Signs (Past 12 Hours) Vital Signs Temp Pulse Pulse Resp BP BP Pulse Ox 12/24/21 04:45 37.9 C H 114 H 12/24/21 04:45 76/54 L 12/24/21 04:30 37.9 C H 115 H 12/24/21 04:30 88/60 L 12/24/21 04:15 37.9 C H 116 H 12/24/21 04:15 85/58 L 12/24/21 04:00 37.9 C H 115 H 12/24/21 04:00 87/59 L 12/24/21 03:45 37.9 C H 116 H 12/24/21 03:45 86/58 L 12/24/21 03:30 37.9 C H 114 H 12/24/21 03:30 94/61 L 12/24/21 03:15 37.9 C H 115 H 12/24/21 03:15 101/66 12/24/21 03:00 37.8 C H 94 H 12/24/21 03:00 99/61 L 12/24/21 02:45 37.7 C H 117 H 12/24/21 02:45 97/64 L 12/24/21 02:54 37.7 C H 119 H 18 97/64 L 12/24/21 02:30 117 H 12/24/21 02:30 109/67 12/24/21 02:15 117 H 12/24/21 02:15 96/65 L 12/24/21 02:00 118 H 12/24/21 02:00 98/73 L 12/24/21 01:45 121 H 12/24/21 01:45 106/67 12/24/21 01:30 122 H 12/24/21 01:30 96/62 L 12/24/21 01:15 123 H 21 12/24/21 01:15 99/60 L 12/24/21 01:00 124 H 12/24/21 01:00 105/61 12/24/21 00:45 123 H 21 12/24/21 00:45 90/62 L 12/24/21 00:30 125 H 12/24/21 00:30 90/65 L 12/24/21 00:15 125 H 18 12/24/21 00:00 125 H 12/23/21 23:45 126 H 21 12/23/21 23:30 126 H 21 12/23/21 23:23 95/70 L 12/23/21 23:23 127 H 19 12/23/21 23:20 129 H 16 12/23/21 22:45 130 H 22 12/23/21 22:30 130 H 22 12/24/21 00:33 36.9 C 125 H 20 90/65 L 96 12/23/21 23:00 37.5 C 127 H 17 95/70 L 94 12/23/21 23:00 124 H 12/23/21 21:37 130 H 21 108/74 94 12/23/21 20:05 36.9 C 144 H 18 104/72 93 O2 Del Method O2 Flow Rate 12/24/21 04:45 12/24/21 04:45 12/24/21 04:30 12/24/21 04:30 12/24/21 04:15 12/24/21 04:15 12/24/21 04:00 12/24/21 04:00 12/24/21 03:45 12/24/21 03:45 12/24/21 03:30 12/24/21 03:30 12/24/21 03:15 12/24/21 03:15 12/24/21 03:00 12/24/21 03:00 12/24/21 02:45 12/24/21 02:45 12/24/21 02:54 12/24/21 02:30 12/24/21 02:30 12/24/21 02:15 12/24/21 02:15 12/24/21 02:00 12/24/21 02:00 12/24/21 01:45 12/24/21 01:45 12/24/21 01:30 12/24/21 01:30 12/24/21 01:15 12/24/21 01:15 12/24/21 01:00 12/24/21 01:00 12/24/21 00:45 12/24/21 00:45 12/24/21 00:30 12/24/21 00:30 12/24/21 00:15 12/24/21 00:00 12/23/21 23:45 12/23/21 23:30 12/23/21 23:23 12/23/21 23:23 12/23/21 23:20 12/23/21 22:45 12/23/21 22:30 12/24/21 00:33 12/23/21 23:00 Nasal Cannula 2 12/23/21 23:00 Nasal Cannula 2 12/23/21 21:37 Nasal Cannula 2 12/23/21 20:05 PG Care Time/CCT Total # of Minutes Spent Total Time Spent with Patient: Total time spent is greater than 50% in coordination of care (as documented) at patient's floor/unit and/or counseling patient: Coding Level of Care Code 20998 Subseq Hosp Care Lvl 3 Diagnoses Acute respiratory failure with hypoxia J96.01 Malignant pleural effusion J91.0 Pressure ulcer of ischium L89.309 Wound infection T14.8XXA; L08.9 Failure of outpatient treatment Z78.9 Antineoplastic chemotherapy induced anemia D64.81; T45.1X5A Chemotherapy induced neutropenia D70.1; T45.1X5A Chemotherapy-induced nausea R11.0; T45.1X5A 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
[2021-12-24 07:38] LABS: INR 1.3 (0.9-1.1); Partial Thromboplastin Ratio 1.2; Partial Thromboplastin Time 33.7 Seconds (21.0-31.0); Prothrombin Time 14.1 Seconds (9.0-12.0)
[2021-12-24] MEDS: FAMOTIDINE 20 MG in SYRINGE 3 ML IV SCH ×2 (08:44→21:39)
[2021-12-24 12:39] LABS: Hematocrit (blood only) 24.8 % (40.1-51.0); Hemoglobin 7.9 g/dl (14.0-18.0)
[2021-12-24] MEDS ORDERED: COUGH DROP (SUGAR FREE) LOZ 24 LOZ/1 BOX BUCCAL ONE (13:56)
[2021-12-24] MEDS: guaiFENesin 600 MG TABCR PO SCH (15:22)
--- NOTE | 2021-12-24 15:36 | Electrocardiogram Report ---
Test Reason : Blood Pressure : / mmHG Vent. Rate : 144 BPM Atrial Rate : 144 BPM P-R Int : 132 ms QRS Dur : 076 ms QT Int : 272 ms P-R-T Axes : 060 -60 020 degrees QTc Int : 421 ms Sinus tachycardia Left axis deviation Poor R wave progression, consider anterior CO vs. lead placement vs. LVH Abnormal ECG When compared with ECG of 18-OCT-2021 14:54, No significant change was found Confirmed by Devendra Alfaro ([id number]) on 12/24/2021 3:36:22 PM Referred By: Beatriz East Confirmed By:Devendra Alfaro
[2021-12-24] MEDS ORDERED: LEVALBUTEROL HCL 1.25 MG/3 ML NEB ONE (16:00)
[2021-12-24] MEDS ORDERED: LEVALBUTEROL HCL 0.63 MG/3 ML NEB NEB STA (16:01)
--- NOTE | 2021-12-24 16:22 | Communication Note ---
Date of Service: December 24, 2021 Chart reviewed including wound images Xarelto should be held 2-3 days, will also need to hold Lovenox starting night before surgery Will follow-up in AM
[2021-12-24] MEDS: ONDANSETRON INJ 2 MG/ML 2 ML VIAL IV PRN (16:42)
[2021-12-24] MEDS ORDERED: OPTIRAY 300 500mL IV ONE (17:13)
--- NOTE | 2021-12-24 17:35 | CT Scan Report ---
CT angio chest PE protocol CT DOSE: 615.80 mGycm HISTORY: 61 years-old Male with PE. Acute shortness of breath with hypoxia TECHNIQUE: Multiple CTA images of the chest were obtained after the intravenous administration of 115 ml Optiray. Coronal and sagittal MIPS were obtained from the axial data set and were submitted for review. All measurements were obtained according to NASCET criteria. A dose lowering technique was u tilized adhering to the principles of ALARA. COMPARISON: Chest radiograph 10/27/2021, CTA chest 10/18/2021, 07/03/2021, CT thoracic spine 07/25/2021 FINDINGS: Limited exam secondary to respiratory motion artifact and artifact related to telemetry leads and tho racic spine with orthopedic hardware. CTA: Pectus excavatum. Mild cardiomegaly with extensive coronary artery calcifications. Ectasia of the asc ending thoracic aorta, 3.9 cm without dissection. Descending thoracic aortic tortuosity. The segmenta l and subsegmental pulmonary tree all branches are not well visualized secondary to contrast bolus ti judd and respiratory motion artifact. No central pulmonary emboli are identified. CT CHEST: Unremarkable thyroid. Mildly enlarged bilateral hilar with borderline enlarged mediastinal lymph node s. Small left with moderate to large right pleural effusions. The left pleural effusion has increased in size from 10/18/2021. Ill-defined scattered bilateral nodular opacities of the lungs redemonstrated. Including a stable 6 mm nodule within the left upper lobe abutting the fissure, image 188. Respirator y motion artifact limits evaluation of the nodules which overall appear to be generally stable from t he prior study. Mass of the right upper lobe measuring 3.8 x 3.2 cm is generally stable from the prio r study where it measured 3.8 x 2.9 cm. The right upper lobe bronchus extends into this lesion. Right lung volume loss with right basilar atelectasis/consolidation. There is no acute process of the imaged upper abdomen. There are a few subcentimeter hypodensities wi thin the liver which appear stable from the prior study measuring up to 1.3 cm the right hepatic lobe . These may represent cysts. Multifocal osteolytic metastatic disease throughout the spine is redemon strated. Pathologic fractures at T2 and T8 redemonstrated. There is a corpectomy device at T8. Smocker ior interbody urbano and screw fusion hardware extends from T3-T12. Several of the osteolytic lesions zaragoza ve increased in size. T7 lesion which demonstrates progressive cortical erosion along the inferior an d posterior endplates. Epidural soft tissue involvement at T2 and T8 suboptimally evaluated secondary to streak artifact from the hardware. Subacute appearing nondisplaced bilateral rib fractures anteri conor. IMPRESSION: 1. No pulmonary emboli identified. 2. Small left with moderate to large right pleural effusions resolving in right lung volume loss. 3. 3.2 x 3.8 cm stable right upper lobe mass with indeterminate subcentimeter scattered left lung pre dominant pulmonary nodules. 4. Mild mediastinal and hilar lymphadenopathy. 5. Progressive multifocal osteolytic skeletal metastasis with pathologic T2 and T8 compression deform ities redemonstrated. There is also progressive erosion/pathologic fracture involving the inferior en dplate of T7. Epidural disease at T2 and T8 is redemonstrated. ACT 112: Negative or not required by law. The above report was generated using voice recognition software. It may contain grammatical, syntax o r spelling errors. Electronically signed by: Mehdi Connell M.D. 12/24/2021 5:33 PM
[2021-12-24 17:42] LABS: Appearance Urine Clear (Clear); Bacteria Urine Automated Negative (Negative); Bilirubin Urine Negative (Negative); Blood Urine Negative (Negative); Color Urine Yellow; Glucose Urine UA Negative (Negative); Ketones Urine Trace (Negative); Leukocyte Esterase Urine Negative (Negative); Nitrite Urine Negative (Negative); Protein Urine 1+ (Negative); Specific Gravity Urine 1.024 (1.000-1.030); Urobilinogen Urine Negative (Negative)
[2021-12-24] MEDS ORDERED: VANCOMYCIN CONSULT ACTIVE PRN (17:45)
[2021-12-24] MEDS ORDERED: ENOXAPARIN 100 MG/1ML SYR SQ SCH (18:00)
[2021-12-24] MEDS ORDERED: ENOXAPARIN 1 MG/KG SQ SCH (18:00)
--- NOTE | 2021-12-24 18:51 | Billing Data ---
Date of Service December 24, 2021 Coding Level of Care Code 83982 Prolonged Care (int'l)
[2021-12-24] MEDS ORDERED: VANCOMYCIN HCL 1,750 MG in SODIUM CHLORIDE 0.9% 500 ML IV ONE (19:00)
[2021-12-24] MEDS: MEROPENEM 500 MG in SYRINGE 0 ML IV SCH (20:05)
[2021-12-24] MEDS: MoRPHine SULFATE 2 MG/ML CARP IV PRN (20:09)
--- NOTE | 2021-12-24 20:22 | Pulmonary Consultation ---
Date of Consultation December 24, 2021 Assessment & Plan (1) Acute respiratory failure with hypoxia: Likely multifactorial secondary to worsening anemia, bilateral effusions and worsening sepsis. We will perform thoracentesis of the right hemithorax to evaluate for infectious etiology. (2) Sepsis: Given the patient's immunocompromise state from chemotherapy and possible pulmonary infection, I recommended transition from daptomycin to vancomycin. I also recommended broadening antibiotics to meropenem. Recommend repeat cultures from the blood and urine. (3) Malignant pleural effusion: Thora tomorrow. (4) Metastatic lung cancer (metastasis from lung to other site): Recommend palliative care consultation and a formal discussion regarding CODE STATUS by the hospitalist team. History of Present Illness Reason for Consultation: Increasing hypoxemia Attending Physician: Porsha Padron DO History of Present Illness 61-year-old male with a past medical history of metastatic lung cancer with recurrent metastatic pleural effusion who presented to the hospital due to fevers. He was found to have a sacral decubitus ulcer and started on daptomycin and cefepime. Pulmonary was consulted due to ongoing fever and increasing oxygen requirements. Patient received chemotherapy and is pancytopenic. He has a history of pulmonary embolism on Lovenox which has been held today. He underwent a chest CTA today which demonstrated moderate to large right pleural effusion and a 3.2 cm right upper lobe mass. Progressive multifocal osteolytic skeletal metastases with pathological T2 and T8 compression fracture noted. Progressive erosion and pathological fracture of T7 noted as well. Patient apparently also has paraplegia due to these lesions. Allergies Allergy/AdvReac Type Severity Reaction Status Date / Time escitalopram AdvReac Intermediate Nausea Verified 12/23/21 21:23 gabapentin AdvReac Migraine Verified 12/23/21 21:23 Home Medications Medication Instructions Recorded Confirmed Type acetaminophen 500 mg tablet 1,000 mg PO Q6H PRN Mild Pain 10/18/21 12/23/21 History (Scale Score 1-4) lidocaine 5 % topical patch 1 patch topical DAILY PRN Pain 10/18/21 12/23/21 History (Lidoderm) oxycodone 10 mg tablet 20 mg PO Q6H PRN pain 10/27/21 12/23/21 History sennosides 8.6 mg tablet (Natural 8.6 mg PO BID #180 tabs 10/27/21 12/23/21 Rx Senna Laxative) rivaroxaban 20 mg tablet (Xarelto) 20 mg PO QDD #90 tabs 10/28/21 12/23/21 Rx pantoprazole 40 mg tablet,delayed 40 mg PO DAILY 12/08/21 12/23/21 History release lactulose 10 gram/15 mL oral 20 g PO QID PRN Constipation 12/10/21 12/23/21 History solution amoxicillin 875 mg-potassium 1 tab PO BID 10 days #20 tabs 12/14/21 12/23/21 Rx clavulanate 125 mg tablet doxycycline hyclate 100 mg capsule 100 mg PO BID 10 days #20 caps 12/15/21 12/23/21 Rx pregabalin 75 mg capsule 75 mg PO TID #90 caps 12/17/21 12/23/21 Rx lidocaine HCl 4 % topical pump See Rx Instructions topical 12/18/21 12/23/21 Rx spray .COMPLEX #104 mL morphine 30 mg tablet,extended 30 mg PO Q12H #60 tabs 12/18/21 12/23/21 Rx release ondansetron 8 mg disintegrating 8 mg PO Q8H PRN Nausea #90 tabs 12/18/21 12/23/21 Rx tablet sodium hypochlorite 0.125 % 1 applic topical DAILY #473 mL 12/18/21 12/23/21 Rx solution (Dakin's Solution) docusate sodium 100 mg tablet 100 mg PO BID PRN Constipation 12/23/21 12/23/21 History folic acid 1 mg tablet 1 mg PO DAILY 12/23/21 12/23/21 History prochlorperazine maleate 10 mg 10 mg PO Q8 PRN Nausea 12/23/21 12/23/21 History tablet Patient History Medical History (Updated 12/24/21 @ 20:20 by Osmany Augustin MD) 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 Bone metastases Elevated troponin 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 Dr [place] S/P IVC filter Family History Father Throat cancer Denies family history of Ovarian cancer Prostate cancer Myocardial infarction Breast cancer Colorectal cancer Social History Smoking Status: Never smoker Second Hand Exposure: No; Do You Dip or Chew Tobacco: No; Tobacco Cessation Education Requested by Patient: No Hx Alcohol Use: No Hx Substance Use: No Preferred Language: Malawian Communication Ability: Effective Visual Impairment: No Limitations Hearing Ability: Normal Duck Operator Required: No Beliefs That Will Affect Care: None marital status: Current Living Situation: Spouse current occupational status: employed Feels Safe at Home: Yes Safety Concerns: Feels Safe At This Time Childhood Exposure to Second-Hand Smoke: Yes Dental Care, Regularly: Yes Physical Activity Frequency: Daily Seatbelt Use: sometimes Sunscreen Use: Yes Assistive Devices: Cane and Walker Review of Systems Review of Systems: All systems reviewed & are unremarkable except as noted in HPI & below Physical Exam Physical Exam: Constitutional: Frail-appearing male in mild distress with mild tachypnea. Eyes: Pupils are equal round and reactive to light. Conjunctivae are normal. Anicteric sclera. Ears nose, mouth and throat: Mallampati class 2. Normal posterior oropharynx. Uvula is midline. Neck: Trachea is midline. Visual inspection is normal. Respiratory: Tachypnea. Increased work of breathing. Cardiovascular: Regular rate and rhythm. No murmurs. No edema. Gastrointestinal: Normal bowel sounds, soft, nontender and nondistended. No hepatosplenomegaly noted. Musculoskeletal: Weakness in the lower extremities. Skin: No rashes, warm dry and intact. Neurologic: Weakness in the lower extremities. Psychiatric: Alert and oriented x3 with a euthymic affect. Results & Data Results & Data ([facility]) Vital Signs (Past 12 Hours) Vital Signs Temp Pulse Pulse Resp BP Pulse Ox O2 Del Method 12/24/21 18:30 38.3 C H 118 H 25 H 97 12/24/21 18:00 121 H 24 94 12/24/21 17:30 123 H 23 90 12/24/21 17:16 123 H 27 H 92 12/24/21 16:45 99/74 L 12/24/21 16:45 38.0 C H 123 H 30 H 94 12/24/21 16:39 93/67 L 09/16/22 16:39 38.1 C H 127 H 30 H 90 12/24/21 16:30 38.0 C H 127 H 35 H 90 12/24/21 16:15 117/73 12/24/21 16:15 37.9 C H 124 H 28 H 90 12/24/21 16:00 37.8 C H 121 H 31 H 92 12/24/21 16:00 115/80 12/24/21 15:45 37.8 C H 115 H 26 H 91 12/24/21 15:45 117/76 12/24/21 15:30 37.8 C H 117 H 25 H 91 12/24/21 15:30 119/71 12/24/21 15:15 107/71 12/24/21 15:15 37.7 C H 117 H 21 96 12/24/21 15:00 37.7 C H 113 H 22 96 12/24/21 15:00 102/67 12/24/21 16:00 121 H 12/24/21 16:08 119 H 26 H 91 Oxymask 12/24/21 14:45 116/70 12/24/21 14:45 37.7 C H 116 H 28 H 95 12/24/21 14:30 113/73 12/24/21 14:30 37.6 C H 114 H 19 94 12/24/21 14:15 104/75 12/24/21 14:15 37.5 C 115 H 21 93 12/24/21 14:00 37.5 C 117 H 32 H 91 12/24/21 14:00 96/78 L 12/24/21 13:45 119/86 12/24/21 13:45 37.4 C 117 H 20 94 12/24/21 13:31 134/79 12/24/21 13:31 37.3 C 116 H 21 12/24/21 13:15 110/70 12/24/21 13:15 37.3 C 106 H 16 12/24/21 13:00 37.3 C 101 H 20 12/24/21 13:00 104/79 12/24/21 12:46 93/74 L 12/24/21 12:46 37.3 C 104 H 19 12/24/21 12:30 107/70 12/24/21 12:30 37.3 C 99 H 18 100 12/24/21 12:15 105/71 12/24/21 12:15 37.4 C 100 H 15 100 12/24/21 12:01 110/71 12/24/21 12:01 37.4 C 103 H 13 94 12/24/21 12:00 37.4 C 106 H 19 97 12/24/21 11:45 106/68 12/24/21 11:45 37.5 C 96 H 16 95 12/24/21 11:30 37.5 C 105 H 18 94 12/24/21 11:30 92/72 L 12/24/21 11:15 37.5 C 105 H 19 95 12/24/21 11:15 101/60 12/24/21 11:00 37.5 C 102 H 19 95 12/24/21 11:00 104/70 12/24/21 10:45 104/69 12/24/21 10:45 37.5 C 105 H 20 95 12/24/21 10:30 37.5 C 101 H 20 94 12/24/21 10:30 106/63 12/24/21 10:15 37.5 C 106 H 15 94 12/24/21 10:15 94/62 L 12/24/21 10:00 37.5 C 102 H 15 98 12/24/21 10:00 96/66 L 12/24/21 09:45 37.5 C 108 H 17 99 12/24/21 09:45 98/59 L 12/24/21 09:30 37.5 C 105 H 16 98 12/24/21 09:30 96/56 L 12/24/21 09:15 37.5 C 106 H 18 98 12/24/21 09:15 101/62 12/24/21 09:00 37.5 C 106 H 19 96 12/24/21 09:00 102/62 12/24/21 08:45 98/69 L 12/24/21 08:45 37.5 C 88 15 98 12/24/21 08:30 37.5 C 96 H 15 12/24/21 08:30 92/61 L 12/24/21 08:15 37.6 C H 105 H 16 12/24/21 08:15 100/66 12/24/21 09:34 101 H 12/24/21 09:28 Room Air O2 Flow Rate 12/24/21 18:30 12/24/21 18:00 12/24/21 17:30 12/24/21 17:16 12/24/21 16:45 12/24/21 16:45 12/24/21 16:39 12/24/21 16:39 12/24/21 16:30 12/24/21 16:15 12/24/21 16:15 12/24/21 16:00 12/24/21 16:00 12/24/21 15:45 12/24/21 15:45 12/24/21 15:30 12/24/21 15:30 12/24/21 15:15 12/24/21 15:15 12/24/21 15:00 12/24/21 15:00 12/24/21 16:00 12/24/21 16:08 4 12/24/21 14:45 12/24/21 14:45 12/24/21 14:30 12/24/21 14:30 12/24/21 14:15 12/24/21 14:15 12/24/21 14:00 12/24/21 14:00 12/24/21 13:45 12/24/21 13:45 12/24/21 13:31 12/24/21 13:31 12/24/21 13:15 12/24/21 13:15 12/24/21 13:00 12/24/21 13:00 12/24/21 12:46 12/24/21 12:46 12/24/21 12:30 12/24/21 12:30 12/24/21 12:15 12/24/21 12:15 12/24/21 12:01 12/24/21 12:01 12/24/21 12:00 12/24/21 11:45 12/24/21 11:45 12/24/21 11:30 12/24/21 11:30 12/24/21 11:15 12/24/21 11:15 12/24/21 11:00 12/24/21 11:00 12/24/21 10:45 12/24/21 10:45 12/24/21 10:30 12/24/21 10:30 12/24/21 10:15 12/24/21 10:15 12/24/21 10:00 12/24/21 10:00 12/24/21 09:45 12/24/21 09:45 12/24/21 09:30 12/24/21 09:30 12/24/21 09:15 12/24/21 09:15 12/24/21 09:00 12/24/21 09:00 12/24/21 08:45 12/24/21 08:45 12/24/21 08:30 12/24/21 08:30 12/24/21 08:15 12/24/21 08:15 12/24/21 09:34 12/24/21 09:28 PG Care Time/CCT Total # of Minutes Spent Total Time Spent with Patient: Total time spent is greater than 50% in coordination of care (as documented) at patient's floor/unit and/or counseling patient: Coding Level of Care Code 52550 Initial Inpt Care Lvl 3 Diagnoses Acute respiratory failure with hypoxia J96.01 Sepsis A41.9 Malignant pleural effusion J91.0 Metastatic lung cancer (metastasis from lung to other site) C34.90
[2021-12-24 20:59] LABS: Hematocrit (blood only) 23.8 % (40.1-51.0); Hemoglobin 7.8 g/dl (14.0-18.0)
[2021-12-24] MEDS ORDERED: DAPTOmycin 500 MG in SYRINGE 0 ML IV SCH (22:00)
[2021-12-25] MEDS: MoRPHine SULFATE 2 MG/ML CARP IV PRN (00:52)
[2021-12-25] MEDS: ONDANSETRON INJ 2 MG/ML 2 ML VIAL IV PRN ×2 (00:52→09:02)
[2021-12-25] MEDS: MEROPENEM 500 MG in SYRINGE 0 ML IV SCH ×4 (00:53→20:50)
[2021-12-25 05:32] LABS: Basophils # (auto) 0.01 K/uL (0-0.2); Basophils % (auto) 0.3 %; Hematocrit (blood only) 24.3 % (40.1-51.0); Hemoglobin 7.8 g/dl (14.0-18.0); Immature Granulocytes # (auto) 0.12 K/uL (0.00-0.02); Immature Granulocytes % (auto) 4.2 %; Lymphocytes # (auto) 0.37 K/uL (1.2-3.4); Lymphocytes % (auto) 12.8 %; Mean Corpuscular Hemoglobin 25.8 pg (25.0-34.0); Mean Corpuscular Hgb Conc 32.1 g/dL (32.0-36.0); Mean Corpuscular Volume 80.5 fL (80.0-100.0); Mean Platelet Volume 9.2 fL (9.4-12.4); Monocytes # (auto) 0.43 K/uL (0.24-0.82); Monocytes % (auto) 14.9 %; Neutrophils # (auto) 1.95 K/uL (1.4-6.5); Neutrophils % (auto) 67.8 %; Platelet Count 326 K/uL (130-400); RDW Coefficient of Variation 17.3 % (11.5-14.5); RDW Standard Deviation 47.6 fL (36.4-46.3); Red Blood Count 3.02 M/uL (4.63-6.08); White Blood Count 2.88 K/ul (4.8-10.8)
[2021-12-25 05:55] LABS: INR 1.2 (0.9-1.1); Partial Thromboplastin Ratio 1.1; Partial Thromboplastin Time 30.2 Seconds (21.0-31.0)
[2021-12-25 05:59] LABS: Albumin Level 2.5 gm/dl (3.4-5.0); BUN Creatinine Ratio 19.6 (10-20); Bilirubin,Total 0.5 mg/dl (0.2-1.0); Calcium 8.2 mg/dl (8.5-10.1); Est GFR (African American) 139.3 ml/min; Est GFR (Non-African American) 120.2 ml/min; Globulin 2.6 gm/dl (2.5-4.0); Magnesium 1.9 mg/dl (1.7-2.4); Total Protein 5.1 gm/dl (6.0-8.3)
[2021-12-25 06:41] LABS: Ovalocytes 1+; Polychromasia 1+
--- NOTE | 2021-12-25 07:09 | Hospitalist Progress Note ---
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 Acute hypoxic respiratory failure: - On presentation was not complaining of cough or dyspnea from baseline, however 12/25 developed wet cough and dyspnea requiring supplemental oxygen. - CT Chest ordered which shows large right sided-pleural effusion, not loculated, more likely malignant effusion as opposed to infected effusion, though not impossible. - Pulmonology consulted for thoracentesis. Also recommended to escalate antibiotics to vancomycin/meropenem. - This AM thoracentesis performed with removal of 1750cc of fluid. Pleur-X declined by patient. - Had conversation with patient and family today that this effusion will return; what is not clear is exactly when. Recommended he consider Pleur-X, if not now, then in the future as his effusion continues to recollect. - Wean oxygen as tolerated. (2) Malignant pleural effusion: Plan: see above (3) Pressure injury of coccygeal region, unstageable: Plan: - Visualized with wound care on 12/24: unstageable coccyx pressure ulcer (6x8cm in size, 2cm in depth), with stage 3 bilateral distal buttock pressure ulcers. - Present on arrival; patient reports was left on bedpan for most of the day during admission at outside hospital. - Enterobacter cloacae and Enterococcus faecalis growing in outpatient cultures. - Presented tachycardic and leukopenic, and during admission developed fever. - Sepsis suspected to be secondary to skin/soft tissue infection, however will also cover for possible infected malignant effusion. - Sensitivities include to daptomycin and cefepime ->escalated to vanc/meropenem for extended MRSA/Pseudomonas coverage. - Wound care consulted, recommended Gen. Surg for consideration of debridement. - Gen Surg consulted; for wound debridement tomorrow AM. - NPO at midnight. - Hold Lovenox after evening dose. - Continue Lyrica TID for burning at site of pressure ulcer. (4) Wound infection: Plan: - Admitted due to failure of outpatient with Augmentin and doxycycline. - See above. (5) Antineoplastic chemotherapy induced anemia: Plan: - Hemoglobin 7.0 upon admission. - Transfused 2 units PRBCs irradiated and local reduced. - Repeat Hgb 7.9 with repeat 7.8; repeat daily. (6) Chemotherapy induced neutropenia: Plan: - Recently was neutropenic, however, ANC this admission is no longer aneta tropenic. - Follow laboratory serially. (7) Chemotherapy-induced nausea: Plan: - Zofran 4 mg IV every 6 hours as needed. (8) 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: Plan: - Adenocarcinoma of right lung with metastases to liver and bone. - Most recent chemotherapy 2 weeks ago. - Continue home morphine ER 30mg q12h scheduled, with IV morphine as needed for breakthrough or severe pain. (9) Bone metastases: Plan: - Pain control with acetaminophen and morphine as noted. (10) Pulmonary embolism: Plan: - History of PE s/p IVC filter. - Has been on Xarelto, which will be held for thoracentesis tomorrow. (11) S/P IVC filter: Plan: see above (12) Incomplete paraplegia: Plan: - Starting to have some feeling in his buttocks and legs, however functionally paraplegic. (13) Goals of care, counseling/discussion: Plan: 12/24: following patient's decline in respiratory status, had conversation with today to confirm code status. Patient has a living will which states that in the event of his inability to answer for himself, that he would defer to his 's choice. When asked if he would want chest compressions or intubation, he asked me to ask his . Long discussion had about the likelihood that ACLS would be unsuccessful and traumatic due to lytic bone lesions, poor state of health, metastatic cancer, etc. I also explained that doing chest compressions or defibrillation without intubation (or vice versa) is generally unsuccessful due to need for oxygen to the tissues. After this conversation, was firm about patient's full code status, which the patient agrees to. Plan FEN: Regular DVT ppx: holding chemoppx for thoracentesis tomorrow, resume when able Dispo: Telemetry Admission and Anticipated Discharge Date Admission Date: December 23, 2021 Subjective No events overnight. Patient stopped having fevers overnight. This AM had thoracentesis; reports significant improvement in breathing since it was done. He declined having Pleur-X placed. Review of Systems Constitutional: no fever and no chills Respiratory: + cough and + dyspnea (improved) Cardiovascular: no chest pain and no palpitations Gastrointestinal: no abdominal pain, no nausea and no vomiting Physical Exam Constitutional: WD/WN, vitals as above Respiratory: normal respiratory effort 4LNC saturating 99% lungs CTA bilaterally Gastrointestinal (Abdomen): normal bowel sounds, soft, nontender, no hepatosplenomegaly Skin: no rashes, warm and dry Psychiatric: A+Ox3, euthymic affect Results & Data Results & Data ([facility]) Vital Signs (Past 12 Hours) Vital Signs Temp Pulse Resp BP Pulse Ox O2 Del Method O2 Flow Rate 12/24/21 22:00 38.1 C H 113 H 23 97 12/24/21 22:00 100/53 L 12/24/21 21:00 38.4 C H 115 H 13 99 12/24/21 21:00 109/69 12/24/21 20:28 38.5 C H 113 H 13 92 12/24/21 20:28 115/76 12/24/21 20:05 38.4 C H 119 H 24 97 12/24/21 20:05 114/66 12/24/21 20:00 38.4 C H 120 H 24 96 12/24/21 20:00 Nasal Cannula, High Flow Nasal Cannula 4 PG Care Time/CCT Total # of Minutes Spent Total Time Spent with Patient: Total time spent is greater than 50% in coordination of care (as documented) at patient's floor/unit and/or counseling patient: Coding Level of Care Code 21582 Subseq Hosp Care Lvl 3 Diagnoses Acute respiratory failure with hypoxia J96.01 Malignant pleural effusion J91.0 Pressure injury of coccygeal region, unstageable L89.150 Wound infection T14.8XXA; L08.9 Antineoplastic chemotherapy induced anemia D64.81; T45.1X5A Chemotherapy induced neutropenia D70.1; T45.1X5A Chemotherapy-induced nausea R11.0; T45.1X5A 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
[2021-12-25] MEDS ORDERED: POTASSIUM CHLORIDE CRTAB 20 MEQ TABCR PO STA (07:38)
[2021-12-25] MEDS: guaiFENesin 600 MG TABCR PO SCH ×2 (08:55→20:28)
[2021-12-25] MEDS: FAMOTIDINE 20 MG in SYRINGE 3 ML IV SCH ×2 (08:55→20:50)
[2021-12-25] MEDS: VANCOMYCIN HCL 1,500 MG in SODIUM CHLORIDE 0.9% 500 ML IV SCH ×2 (09:10→20:49)
--- NOTE | 2021-12-25 09:30 | Pulmonology Progress Note ---
Date of Service December 25, 2021 Assessment & Plan (1) Acute respiratory failure with hypoxia: Plan: Likely multifactorial secondary to worsening anemia, bilateral effusions and worsening sepsis. Thoracentesis performed of the right hemithorax yielding 1.75 L of tu-colored fluid. Patient would like to defer Pleurx catheter placement at this time. Patient saturating 99% on supplemental oxygen. Wean oxygen as able. (2) Sepsis: Plan: Continue broad-spectrum antibiotics. Pleural fluid cultures will be sent. Pleural fluid does not grossly appear infected. Suspect source of infection and sacral decubitus ulcer. (3) Malignant pleural effusion: Plan: Patient defers Pleurx at this time. Thoracentesis completed today. Post procedure chest x-ray pending. (4) Metastatic lung cancer (metastasis from lung to other site): Plan: Recommend palliative care consultation and a formal discussion regarding CODE STATUS by the hospitalist team. Admission and Anticipated Discharge Date Admission Date: December 23, 2021 Subjective Patient continues with some mild shortness of breath. Currently requiring supplemental oxygen. He has been spiking low-grade fevers. Hemodynamically stable. No chest pain. Review of Systems Review of Systems: All systems reviewed & are unremarkable except as noted in HPI & below Physical Exam Physical Exam: Constitutional: Frail-appearing male in mild distress with mild tachypnea. Eyes: Pupils are equal round and reactive to light. Conjunctivae are normal. Anicteric sclera. Ears nose, mouth and throat: Mallampati class 2. Normal posterior oropharynx. Uvula is midline. Neck: Trachea is midline. Visual inspection is normal. Respiratory: Tachypnea. Increased work of breathing. Cardiovascular: Regular rate and rhythm. No murmurs. No edema. Gastrointestinal: Normal bowel sounds, soft, nontender and nondistended. No hepatosplenomegaly noted. Musculoskeletal: Weakness in the lower extremities. Skin: No rashes, warm dry and intact. Neurologic: Weakness in the lower extremities. Psychiatric: Alert and oriented x3 with a euthymic affect. Results & Data Results & Data ([facility]) Vital Signs (Past 12 Hours) Vital Signs Temp Pulse Resp BP Pulse Ox 12/25/21 07:00 37.5 C 104 H 21 95 12/25/21 07:00 117/72 12/25/21 06:00 37.5 C 101 H 17 95 12/25/21 06:00 110/62 12/25/21 05:27 91/63 L 12/25/21 05:27 37.5 C 103 H 28 H 96 12/25/21 05:00 37.5 C 103 H 17 95 12/25/21 04:00 37.4 C 104 H 17 96 12/25/21 03:00 37.4 C 107 H 22 97 12/25/21 02:00 37.5 C 101 H 21 96 12/25/21 01:00 37.5 C 101 H 18 98 12/25/21 00:00 37.7 C H 108 H 22 96 12/25/21 00:00 110/65 12/24/21 23:00 37.9 C H 110 H 24 96 12/24/21 23:00 114/65 12/24/21 22:00 38.1 C H 113 H 23 97 12/24/21 22:00 100/53 L PG Care Time/CCT Total # of Minutes Spent Total Time Spent with Patient: Total time spent is greater than 50% in coordination of care (as documented) at patient's floor/unit and/or counseling patient: Coding Level of Care Code 35775 Subseq Hosp Care Lvl 3 Diagnoses Acute respiratory failure with hypoxia J96.01 Sepsis A41.9 Malignant pleural effusion J91.0 Metastatic lung cancer (metastasis from lung to other site) C34.90
--- NOTE | 2021-12-25 09:34 | Procedure Note ---
Procedure Note Date of Service December 25, 2021 Note Procedure: Diagnostic and/or therapeutic ultrasound-guided catheter thoracentesis Resident Program Specialist: Dr. Osmany Augustin Indication: Pleural effusion Consent: Signed by patient and verified with timeout prior to procedure Anesthesia: 8 mL's of 1% lidocaine without epinephrine given locally Procedure: Consent was verified and timeout performed. Appropriate imaging studies were reviewed prior to the procedure. Patient was placed in a semirecumbent and limited thoracic ultrasound was performed of the right lateral chest. See separate imaging. The site appropriate for thoracentesis was selected. The skin was prepped and draped in normal sterile fashion. Lidocaine was used for local analgesia. Fluid was aspirated via the finder needle. A small skin yasir was made with the scalpel and the catheter over the needle apparatus was advanced over the rib into the pleural space. Using the syringe one-way valve system, a total of 1750 mL's of tu-colored fluid was removed. Procedure was terminated due to mild shoulder pain. The catheter was removed and observed to be intact. A sterile dressing was applied. Post procedure chest x-ray was ordered. Fluid was sent for LDH, total protein, cell count, glucose, pH, AFB cultures, gram stain and culture and fungal cultures. The patient tolerated the procedure well without obvious complication Coding CPT Codes Pulmonary/Thoracic - Pulmonary and Thoracic: 82074 Thoracentesis w imaging ([id number][place] [facility] [place]) Pulmonary/Thoracic Procedure 1: Pulmonary and Thoracic: 55277 Thoracentesis w imaging
--- NOTE | 2021-12-25 09:49 | XRay Report ---
XR chest 1V portable HISTORY: S/P Thoracentesis COMPARISON: Chest 10/27/2021 and chest CTA 12/24/2021. FINDINGS: Decrease in size in the now small right pleural effusion status post thoracentesis. No pneu mothorax. The heart remains mildly enlarged. Bibasilar linear densities favor subsegmental atelectasi s. Right upper lobe mass is again noted. Extensive thoracolumbar spinal fusion hardware again noted. Small left pleural effusions, unchanged. IMPRESSION: 1. Decrease in size in the now small right pleural effusion status post thoracentesis. No pneumothora x. 2. Small left pleural effusions persist. 3. Right upper lobe mass again noted ACT 112: Negative or not required by law. Electronically signed by: Jonas Aldana M.D. 12/25/2021 9:48 AM
--- NOTE | 2021-12-25 10:53 | Surgery Progress Note ---
Date of Service December 25, 2021 Assessment & Plan (1) Pressure ulcer of ischium: Plan: Patient had a right thoracentesis this morning 1750 cc tu-colored fluid removed Will await decision from medical service when and if okay to proceed with sacral decubitus debridement Admission and Anticipated Discharge Date Admission Date: December 23, 2021 Results & Data ([facility]) Vital Signs (Past 12 Hours) Vital Signs Temp Pulse Resp BP Pulse Ox 12/25/21 07:00 37.5 C 104 H 21 95 12/25/21 07:00 117/72 12/25/21 06:00 37.5 C 101 H 17 95 12/25/21 06:00 110/62 12/25/21 05:27 91/63 L 12/25/21 05:27 37.5 C 103 H 28 H 96 12/25/21 05:00 37.5 C 103 H 17 95 12/25/21 04:00 37.4 C 104 H 17 96 12/25/21 03:00 37.4 C 107 H 22 97 12/25/21 02:00 37.5 C 101 H 21 96 12/25/21 01:00 37.5 C 101 H 18 98 12/25/21 00:00 37.7 C H 108 H 22 96 12/25/21 00:00 110/65 12/24/21 23:00 37.9 C H 110 H 24 96 12/24/21 23:00 114/65 PG Care Time/CCT Total # of Minutes Spent Total Time Spent with Patient: Total time spent is greater than 50% in coordination of care (as documented) at patient's floor/unit and/or counseling patient: Coding Level of Care Code 72206 Subseq Hosp Care Lvl 2 Diagnoses Pressure ulcer of ischium L89.309
--- NOTE | 2021-12-25 11:19 | Pharmacy Report ---
Pharmacy PK ABX Note - Date of Service December 25, 2021 - Assessment and Plan Assessment 61 year old M receiving vancomycin for treatment of sepsis (possible pulmonary or skin source). Pertinent microbiologic data includes: Negative MRSA Nasal Swab, blood cultures pending, pleural fluid to be sent for culture. Day # 3 of antimicrobial therapy (previously received dapto). Plan Vancomycin * Loading dose: 1750 mg IV x 1 administered 12/24 @ 2000 * Maintenance dose: 1500 mg IV every 12 hours * Regimen is predicted to achieve target AUC/LINDA of 400-600 mg/L.hr * Trough level ordered for: 12/26/21 @0730 Pharmacy will continue to follow and will adjust dose/frequency as necessary. Thank you. Pharmacy has transitioned to AUC monitoring for vancomycin. AUC/LINDA is the preferred PK/PD target and is associated with decreased risk of nephrotoxicity c ompared to traditional trough targets.
[2021-12-25 12:07] LABS: Total Protein Pleural Fluid 3.4 gm/dl
[2021-12-25 12:39] LABS: Appearance Pleural Fluid Hazy; Color Pleural Fluid Yellow; Eosinophils, Fluid 2 %; Lymphocytes, Fluid 34 %; Mono,Macrophage,Mesothelial 57 %; Neutrophils, Fluid 7 %; RBC Pleural Fluid (A) 6000 /uL; Source Pleural Fluid Right Lung; WBC Pleural Fluid (A) 199 /uL
[2021-12-25] MEDS: MoRPHine SULFATE CR 15 MG TABCR PO SCH (13:01)
[2021-12-25] MEDS: PREGABALIN 75 MG CAP PO SCH ×2 (13:01→20:28)
[2021-12-25] MEDS: oxyCODONE HCL IR 5 MG TAB (IMMEDIATE RELEASE) PO PRN ×2 (14:25→20:40)
[2021-12-25] MEDS ORDERED: ENOXAPARIN 100 MG/1ML SYR SQ SCH (21:00)
[2021-12-26] MEDS: MoRPHine SULFATE CR 15 MG TABCR PO SCH ×2 (00:17→13:08)
[2021-12-26] MEDS: bisacodyL 10 MG SUPP PR PRN (00:17)
[2021-12-26] MEDS: MEROPENEM 500 MG in SYRINGE 0 ML IV SCH ×4 (02:11→20:43)
[2021-12-26 05:07] LABS: Hematocrit (blood only) 25.2 % (40.1-51.0); Hemoglobin 7.9 g/dl (14.0-18.0); Mean Corpuscular Hemoglobin 26.2 pg (25.0-34.0); Mean Corpuscular Hgb Conc 31.3 g/dL (32.0-36.0); Mean Corpuscular Volume 83.4 fL (80.0-100.0); Mean Platelet Volume 8.9 fL (9.4-12.4); Platelet Count 349 K/uL (130-400); RDW Coefficient of Variation 17.9 % (11.5-14.5); RDW Standard Deviation 51.3 fL (36.4-46.3); Red Blood Count 3.02 M/uL (4.63-6.08)
[2021-12-26 05:31] LABS: Albumin Level 2.4 gm/dl (3.4-5.0); BUN Creatinine Ratio 22.9 (10-20); Bilirubin,Total 0.4 mg/dl (0.2-1.0); Calcium 8.2 mg/dl (8.5-10.1); Creatinine Clr Calc Pharmacy 190.7 ml/min; Est GFR (African American) 136.9 ml/min; Est GFR (Non-African American) 118.1 ml/min; Globulin 2.5 gm/dl (2.5-4.0); Magnesium 1.7 mg/dl (1.7-2.4); Potassium 3.5 mmol/L (3.5-5.1); Total Protein 4.9 gm/dl (6.0-8.3)
--- NOTE | 2021-12-26 06:28 | Surgery Progress Note ---
Date of Service December 26, 2021 Assessment & Plan (1) Pressure injury of coccygeal region, unstageable: Plan: Discussed with the patient and the medical service will debride the patient this morning with the anticipation of placing a VAC system The patient is well aware of VAC systems since he has had 1 for nonhealing incision and upper posterior thoracic area for his spine decompression Patient voiced interest in having plastic surgery see the patient in consider their input at this point I told him the primary thing is to clean the area up apply the VAC system and depending on how the wound evolves we can aspect sick surgery to see the patient anytime All question answered Plan Patient was scheduled this morning for debridement of sacral ulcerations Admission and Anticipated Discharge Date Admission Date: December 23, 2021 Subjective No major complaints at this time he likes his room to stay warm temperature reading for him is 38.2 this morning Physical Exam Physical Exam: Alert coherent Patient was turned around left lateral position the sacral decubiti with was visualized in the left buttock area there is some tunneling with skin necrosis overlying the ulceration and right buttock there is a pressure ulceration approximately 5 cm the surrounding area is erythematous there is no drainage the periwound on both ulcerations is erythematous The ulceration of the left buttock as stated this tunneling but the tunneling at 2 o'clock position is 5 to 6 cm in depth The right heel shows a very limited pressure ulceration the size approximately 3 cm diameter irregular there is no drainage the periwound is intact with minimal erythema Results & Data ([facility]) Vital Signs (Past 12 Hours) Vital Signs O2 Del Method O2 Flow Rate 12/25/21 20:00 Nasal Cannula 4 PG Care Time/CCT Total # of Minutes Spent Total Time Spent with Patient: Total time spent is greater than 50% in coordination of care (as documented) at patient's floor/unit and/or counseling patient: Coding Level of Care Code 01555 Subseq Hosp Care Lvl 3 Diagnoses Pressure injury of coccygeal region, unstageable L89.150
--- NOTE | 2021-12-26 07:32 | Hospitalist Progress Note ---
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 Acute hypoxic respiratory failure: - On admission was not complaining of cough or dyspnea from baseline, however 12/25 developed wet cough and dyspnea requiring supplemental oxygen. - CT Chest ordered which showed large right sided-pleural effusion, not loculated, more likely malignant effusion as opposed to infected effusion. - Pulmonology consulted for thoracentesis. Also recommended to escalate antibiotics to vancomycin/meropenem. - 12/25 thoracentesis performed with removal of 1750cc of fluid. Pleur-X declined by patient. - Had conversation with patient and family 12/25 that this effusion will return; what is not clear is exactly when. Recommended he consider Pleur-X, if not now, then in the future as his effusion recollects. - See goals of care below. - Wean oxygen as tolerated. Currently on 2LNC. Patient has O2 at home, often used at bedtime. (2) Malignant pleural effusion: Plan: see above (3) Pressure injury of coccygeal region, unstageable: Plan: - Visualized with wound care on 12/24: unstageable coccyx pressure ulcer (6x8cm in size, 2cm in depth), with stage 3 bilateral distal buttock pressure ulcers. - Present on arrival; patient reports was left on bedpan for most of the day during admission at outside hospital. - Enterobacter cloacae and Enterococcus faecalis growing in outpatient cultures. - Presented tachycardic and leukopenic, and during admission developed fever. - BCx 12/23 negative to date. - Sepsis suspected to be secondary to skin/soft tissue infection. Pleural fluid culture pending, but not likely to be infectious source. - Wound care consulted, recommended Gen. Surg for consideration of debridement. - Gen Surg consulted; had ulcer debridement 12/26. - For wound vac tomorrow. - Tissue cultures pending. - Continue Lyrica TID for burning at site of pressure ulcer. - Tylenol as needed for fever. (4) Wound infection: Plan: - Admitted due to failure of outpatient tx with Augmentin and doxycycline. - See above. (5) Antineoplastic chemotherapy induced anemia: Plan: - Hemoglobin 7.0 upon admission. Transfused 2 units PRBCs. - Hgb stable at 7.9. - Anemia multifactorial with chemo-induced anemia, bony mets causing decreased hematopoesis. - Daily CBC. (6) Constipation due to opioid therapy: Plan: - On chronic opiate therapy for cancer-related pain. - Resume patient's suppositories and lactulose as needed for constipation. - Last normal BM two days ago, with small BM per patient today. (7) Chemotherapy induced neutropenia: Plan: - Recently was neutropenic, however, ANC this admission is no longer neutropenic. - Follow laboratory serially. (8) Chemotherapy-induced nausea: Plan: - Zofran 4 mg IV every 6 hours as needed. 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 - Most recent chemotherapy 2 weeks ago. - Continue home morphine ER 30mg q12h scheduled, with IV morphine as needed for breakthrough or severe pain. (10) Bone metastases: Plan: - Pain control with acetaminophen and morphine as noted. (11) Pulmonary embolism: Plan: - History of PE s/p IVC filter. - Has been on Xarelto, which will be held for thoracentesis tomorrow. (12) S/P IVC filter: Plan: see above (13) Incomplete paraplegia: Plan: - Starting to have some feeling in his buttocks and legs, however functionally paraplegic. (14) Goals of care, counseling/discussion: Plan: 12/24: following patient's decline in respiratory status, had conversation with today to confirm code status. Patient has a living will which states that in the event of his inability to answer for himself, that he would defer to his 's choice. When asked if he would want chest compressions or intubation, he asked me to ask his . Long discussion had about the likelihood that ACLS would be unsuccessful and traumatic due to lytic bone lesions, poor state of health, metastatic cancer, etc. I also explained that doing chest compressions or defibrillation without intubation (or vice versa) is generally unsuccessful due to need for oxygen to the tissues. At that time, with in the room, patient expressed that he would want all care possible. 12/26: Time in room - 3:00pm, time out - 3:30pm; went to bedside at patient request to discuss code status. He wanted me to know that his living will was brought in for copying, and that he does not want chest compressions or intubation if those things were to be required. He states that he wanted to make this decision so that his did not have to make it in his place. We again discussed that given his overall poor health, that CPR and ACLS would not be likely to be successful. He still desires chemotherapy and other possible cancer-related and health-related treatments with the goal of prolonging life as long as possible. I assured him that I would change his code status to DNR/DNI, as well as have copy of living will on his chart, however this would not change our management of his medical needs/ wants in all other regards. Plan Code Status: DNR/DNI FEN: Regular DVT ppx: resume Xarelto this evening Dispo: Telemetry Admission and Anticipated Discharge Date Admission Date: December 23, 2021 Subjective Patient having debridement of sacral decubitus ulcer this morning. He reports his breathing is "fine". On 2LNC this afternoon. He denies pain. Review of Systems Constitutional: no fever and no chills Respiratory: no cough and no dyspnea Cardiovascular: no chest pain and no palpitations Gastrointestinal: no abdominal pain, no nausea and no vomiting Physical Exam Constitutional: WD/WN, vitals as above Respiratory: normal respiratory effort, lungs clear to auscultation Cardiovascular: Rate/Rhythm: regular rhythm and + tachycardic Gastrointestinal (Abdomen): normal bowel sounds, soft, nontender, no hepatosplenomegaly Skin: no rashes, warm and dry dressing over sacral ulcers clean and dry Psychiatric: A+Ox3, euthymic affect Results & Data Results & Data ([facility]) Vital Signs (Past 12 Hours) Vital Signs Temp Pulse Resp BP Pulse Ox O2 Del Method O2 Flow Rate 12/26/21 06:00 38.2 C H 110 H 18 95 12/26/21 05:00 38.3 C H 110 H 23 90 12/26/21 04:00 38.4 C H 111 H 21 93 12/26/21 03:00 38.4 C H 113 H 27 H 90 12/26/21 02:00 38.5 C H 113 H 16 92 12/26/21 01:00 38.4 C H 113 H 22 94 12/26/21 00:00 38.5 C H 117 H 20 93 12/26/21 00:00 102/66 12/25/21 23:00 38.3 C H 116 H 20 97 12/25/21 22:00 38.2 C H 113 H 21 99 12/25/21 21:00 38.0 C H 115 H 20 12/25/21 20:00 37.7 C H 108 H 20 12/25/21 20:00 Nasal Cannula 4 PG Care Time/CCT Total # of Minutes Spent Total Time Spent with Patient: Total time spent is greater than 50% in coordination of care (as documented) at patient's floor/unit and/or counseling patient: Coding Level of Care Code 02462 Subseq Hosp Care Lvl 3 Diagnoses Acute respiratory failure with hypoxia J96.01 Malignant pleural effusion J91.0 Pressure injury of coccygeal region, unstageable L89.150 Wound infection T14.8XXA; L08.9 Antineoplastic chemotherapy induced anemia D64.81; T45.1X5A Constipation due to opioid therapy K59.03; T40.2X5A Chemotherapy induced neutropenia D70.1; T45.1X5A Chemotherapy-induced nausea R11.0; T45.1X5A 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
--- NOTE | 2021-12-26 07:51 | Anesthesiology Consultation ---
Date of Service December 26, 2021 Assessment & Plan (1) Encounter for pre-operative examination: Chart Review Chart Review: order entry technician initiated History Surgery Operation Date: 12/26/21 09:00 Proposed Procedures p Debridement Sacral Ulceration - Jhoan Cohen MD, FACS Height/Weight Height: 6 ft 3 in Weight: 91.2 kg Allergies Allergy/AdvReac Type Severity Reaction Status Date / Time escitalopram AdvReac Intermediate Nausea Verified 12/23/21 21:23 gabapentin AdvReac Migraine Verified 12/23/21 21:23 Medications Home Medications Medication Instructions Recorded Confirmed Last Taken acetaminophen 500 mg tablet 1,000 mg PO Q6H PRN Mild Pain 10/18/21 12/23/21 Unknown (Scale Score 1-4) lidocaine 5 % topical patch 1 patch topical DAILY PRN Pain 10/18/21 12/23/21 Unknown (Lidoderm) oxycodone 10 mg tablet 20 mg PO Q6H PRN pain 10/27/21 12/23/21 Unknown sennosides 8.6 mg tablet (Natural 8.6 mg PO BID #180 tabs 10/27/21 12/23/21 Unkn own Senna Laxative) rivaroxaban 20 mg tablet (Xarelto) 20 mg PO QDD #90 tabs 10/28/21 12/23/21 12/23/21 18:00 pantoprazole 40 mg tablet,delayed 40 mg PO DAILY 12/08/21 12/23/21 Unknown release lactulose 10 gram/15 mL oral 20 g PO QID PRN Constipation 12/10/21 12/23/21 Unknown solution amoxicillin 875 mg-potassium 1 tab PO BID 10 days #20 tabs 12/14/21 12/23/21 12/23/21 09:00 clavulanate 125 mg tablet doxycycline hyclate 100 mg capsule 100 mg PO BID 10 days #20 caps 12/15/21 12/23/21 12/23/21 09:00 pregabalin 75 mg capsule 75 mg PO TID #90 caps 12/17/21 12/23/21 Unknown lidocaine HCl 4 % topical pump See Rx Instructions topical 12/18/21 12/23/21 Unknown spray .COMPLEX #104 mL morphine 30 mg tablet,extended 30 mg PO Q12H #60 tabs 12/18/21 12/23/21 12/23/21 18:00 release ondansetron 8 mg disintegrating 8 mg PO Q8H PRN Nausea #90 tabs 12/18/21 0 12/23/21 Unknown tablet sodium hypochlorite 0.125 % 1 applic topical DAILY #473 mL 12/18/21 12/23/21 12/23/21 16:00 solution (Dakin's Solution) docusate sodium 100 mg tablet 100 mg PO BID PRN Constipation 12/23/21 12/23/21 Unknown folic acid 1 mg tablet 1 mg PO DAILY 12/23/21 12/23/21 Unknown prochlorperazine maleate 10 mg 10 mg PO Q8 PRN Nausea 12/23/21 12/23/21 Unknown tablet Active Medications Generic Name Dose Route Start Last Admin Trade Name Freq PRN Reason Stop Dose Admin Bisacodyl 10 mg 12/25/21 17:50 12/26/21 00:17 Bisacodyl 10 Mg Supp TX 01/24/22 17:49 10 mg DAILY PRN Administration Constipation Guaifenesin 600 mg 12/24/21 21:00 12/25/21 20:28 Guaifenesin 600 Mg Tabcr PO 01/23/22 20:59 600 mg Q12 GARRY Administration Famotidine 20 mg/ Syringe 5 mls @ 2.5 mls/min 12/24/21 09:00 12/25/21 20:50 IV 01/23/22 08:59 2.5 mls/min Q12H GARRY Administration Meropenem 500 mg/ Syringe 10 mls @ 2 mls/min 12/24/21 19:00 12/26/21 02:11 IV 12/31/21 18:59 2 mls/min Q6H GARRY Administration Protocol Vancomycin HCl 1,500 mg/ 530 mls @ 200 mls/hr 12/25/21 08:00 12/25/21 23:28 Sodium Chloride IV 01/01/22 07:59 Infused Q12H GARRY Infusion Morphine Sulfate 4 mg 12/24/21 01:08 12/25/21 15:02 Morphine Sulfate 4 Mg/Ml 1 Ml Carp\Vial IV 01/07/22 01:07 4 mg Q3H PRN Administration Severe Pain Morphine Sulfate 30 mg 12/25/21 13:00 12/26/21 00:17 Morphine Sulfate Cr 15 Mg Tabcr PO 01/08/22 12:59 30 mg Q12H GARRY Administration Ondansetron HCl 4 mg 12/24/21 02:00 12/25/21 09:02 Ondansetron Inj 2 Mg/Ml 2 Ml Vial IV 01/23/22 01:59 4 mg Q6H PRN Administration Nausea Oxycodone HCl 10 mg 12/25/21 12:34 12/25/21 20:40 Oxycodone Hcl Ir 5 Mg Tab (Immediate Release) PO 01/08/22 12:33 10 mg Q6H PRN Administration pain Pregabalin 75 mg 12/25/21 14:00 12/25/21 20:28 Pregabalin 75 Mg Cap PO 01/24/22 13:59 75 mg TID GARRY Administration Past Medical History Medical History 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 Bone metastases Elevated troponin 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 Metastatic lung cancer (metastasis from lung to other site) Pleural effusion Pulmonary embolism Sepsis Small intestinal bacterial overgrowth (SIBO) Spinal cord compression 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 Stage 4 lung cancer Past Family History Family History Father Throat cancer Denies family history of Ovarian cancer Prostate cancer Myocardial infarction Breast cancer Colorectal cancer Past Surgical History Surgical History History of ankle surgery Hx of spinal fusion C6-T12 at [facility] Dr [place] S/P IVC filter Social History Smoking Status: Never smoker Do You Dip or Chew Tobacco: No Hx Alcohol Use: No Hx Substance Use: No substance use type: does not use Physical Exam Vital Signs Last Vital Signs Temp 100.8 F H 12/26/21 06:00 Pulse 110 H 12/26/21 06:00 Resp 18 12/26/21 06:00 BP 102/66 12/26/21 00:00 Pulse Ox 95 12/26/21 06:00 O2 Del Method 12/25/21 20:00 O2 Flow Rate 4 12/25/21 20:00 Testing Laboratory Results 12/26/21 04:53 12/26/21 04:53 PT 13.0 Seconds (9.0-12.0) H 12/25/21 04:51 INR 1.2 (0.9-1.1) H 12/25/21 04:51 APTT 30.2 Seconds (21.0-31.0) 12/25/21 04:51 Urine Color Yellow 12/24/21 16:40 Urine Appearance Clear (Clear) 12/24/21 16:40 Urine pH 5.0 (4.5-7.5) 12/24/21 16:40 Ur Specific [place] 1.024 (1.000-1.030) 12/24/21 16:40 Urine Protein 1+ (Negative) H 12/24/21 16:40 Urine Glucose (UA) Negative (Negative) 12/24/21 16:40 Urine Ketones Trace (Negative) H 12/24/21 16:40 Urine Nitrite Negative (Negative) 12/24/21 16:40 Ur Leukocyte Esterase Negative (Negative) 12/24/21 16:40 Urine WBC (Auto) 1-5 /hpf (0-5) 12/24/21 16:40 Urine RBC (Auto) 5-10 /hpf (0-4) H 12/24/21 16:40 U Hyaline Cast (Auto) 5-10 /lpf (0-5) H 12/24/21 16:40 U Epithel Cells (Auto) 10-20 /lpf (0-5) H 12/24/21 16:40 Urine Bacteria (Auto) Negative (Negative) 12/24/21 16:40 Blood Type A Positive 12/23/21 22:45 Antibody Screen NEGATIVE 12/23/21 22:45 12/23/21 21:45 Aerobic Blood Culture - Preliminary Blood No growth in Aerobic bottle after 48 hours. Anaerobic Blood Culture - Preliminary No growth in Anaerobic bottle after 48 hours. 12/23/21 21:25 Aerobic Blood Culture - Preliminary Blood No growth in Aerobic bottle after 48 hours. Anaerobic Blood Culture - Preliminary No growth in Anaerobic bottle after 48 hours. 12/25/21 11:20 Gram Stain - Final Pleural Fluid Electrocardiogram Date: 12/23/21 Sinus tachycardia, rate 144 bpm Left axis deviation Poor R wave progression, consider anterior OH vs. lead placement vs. LVH Abnormal ECG When compared with ECG of 18-OCT-2021 14:54, No significant change was found Confirmed by Devendra Alfaro ([id number]) on 12/24/2021 3:36:22 PM Chest X-Ray Date: 12/25/21 FINDINGS: Decrease in size in the now small right pleural effusion status post thoracentesis. No pneumothorax. The heart remains mildly enlarged. Bibasilar linear densities favor subsegmental atelectasis. Right upper lobe mass is again noted. Extensive thoracolumbar spinal fusion hardware again noted. Small left pleural effusions, unchanged. IMPRESSION: 1. Decrease in size in the now small right pleural effusion status post thoracentesis. No pneumothorax. 2. Small left pleural effusions persist. 3. Right upper lobe mass again noted
[2021-12-26] MEDS ORDERED: LIDOCAINE 2% 2 ML VIAL/AMP(20MG/ML) INFIL ONE (08:06)
[2021-12-26] MEDS ORDERED: ONDANSETRON INJ 2 MG/ML 2 ML VIAL ONE (08:06)
[2021-12-26] MEDS ORDERED: DEXAMETHASONE SOD INJ 4 MG/ML VIAL ONE (08:06)
[2021-12-26] MEDS ORDERED: PROPOFOL IV EMULSION 10 MG/ML 20 ML VIAL IV ONE (08:06)
[2021-12-26] MEDS ORDERED: ATROPINE SULFATE 0.1 MG/ML 10ML SYR IV PRN (08:07)
[2021-12-26] MEDS ORDERED: ONDANSETRON INJ 2 MG/ML 2 ML VIAL IV PRN (08:07)
[2021-12-26] MEDS ORDERED: fentaNYL citrate 100 MCG/2 ML VIAL ONE (08:07)
[2021-12-26] MEDS ORDERED: fentaNYL citrate 100 MCG/2 ML VIAL IV PRN (08:07)
[2021-12-26] MEDS ORDERED: ePHEDrine sulfate 50 MG/ML AMP IV PRN (08:07)
[2021-12-26] MEDS ORDERED: MIDAZOLAM HCL 1 MG/ML 2ML VIAL ONE (08:07)
--- NOTE | 2021-12-26 09:42 | Post Operative Brief Note ---
PG Immediate Post Op with CF Date of Surgery December 26, 2021 Pre & Post Diagnosis Operation Date: 12/26/21 09:00 Pre-Op Diagnosis: Sacral Ulceration Post-Op Diagnosis: Sacral Ulceration I identified the patient and participated in the time-out.: Yes Procedure Operation Date: 12/26/21 09:00 Actual Procedures p Debridement Sacral Ulceration(Not Applicable) - Jhoan Cohen MD, FACS Surgeon Jhoan Cohen MD, FACS Nurse Rn [facility] o Estimated Blood Loss 35 Findings Consistent with Post-Op Diagnosis Specimens Specimen Description: culture 1. Sacral Ulcerated Tissue 2. Subcutaneous culture Permanent A. Debridement Sacral Ulceration
--- NOTE | 2021-12-26 09:52 | Operative Report ---
PG Post Operative Report Pre & Post Diagnosis Operation Date: 12/26/21 09:00 Pre-Op Diagnosis: Sacral Ulceration Post-Op Diagnosis: Sacral Ulceration I identified the patient and participated in the time-out.: Yes Procedure Operation Date: 12/26/21 09:00 Actual Procedures p Debridement Sacral Ulceration(Not Applicable) - Jhoan Cohen MD, FACS The patient was brought into the operating theater general endotracheal anesthesia patient was turned to right lateral position padding the appropriate area left buttock and right buttock and around the anal area was prepped byline solution properly draped a timeout was had patient was identified systemic biotics had been on board the initial inspection of the sacral decubiti revealed significant undermining brought 2 cm circumferentially to central opening that was approximately 5 cm x 3 cm irregular with significant amount of necrotic tissue the periwound was erythematous this point we outlined and demarcated with a Bovie and excised the tissue so we unroofed the skin and subcutaneous tissue to expose the depth of the wound and to viable tissue this necessitated to take approximately centimeter and a half this skin subcutaneous tissue down the gluteal muscle. The wound was checked for hemostasis electrocautery was used to control it. Once we had can pleated this we removed all necrotic skin with electrocautery knife and scissors we took a biopsy done into the depth of the stage III ulceration sent for culture sensitivity and also sent a piece of subcutaneous tissue separately for culture sensitivity once we had removed all the devitalized tissue we were able to measure the opening the patient was 5 cm length 6 cm diameter and 2 cm in depth (5 cm x 6 cm x 2 cm) The wound was then packed with 1 inch plain gauze and editing normal saline covered with a 4 x 4 ABD and paper tape The procedure tolerated well by the patient estimate blood loss 35 cc This constituted an excisional biopsy greater then 20 cm Surgeon Jhoan Cohen MD, FACS Head Filter Tank Tender Helper o Estimated Blood Loss 35 Findings Consistent with Post-Op Diagnosis Specimens Debridement of skin and subcutaneous tissue for stage III sacral ulceration Incisional biopsy of the deep wounds muscular for cultures and sensitivity Incisional biopsy of subcutaneous tissue for cultures and sensitivity Drains None Wound was packed Her plan is to remove the packing tomorrow and apply a VAC system Indications Necrotic sacral decubitus Description of Procedure merda I attest to the content of the Intraoperative Record and any orders documented therein. Any exceptions are noted below.
[2021-12-26] MEDS: VANCOMYCIN HCL 1,500 MG in SODIUM CHLORIDE 0.9% 500 ML IV SCH ×2 (10:00→20:44)
--- NOTE | 2021-12-26 10:16 | Anesthesiology Progress Note ---
Date of Service December 26, 2021 Anesthesia Post Procedure Vital Signs Vital Signs: Temp Pulse Pulse Resp BP BP Pulse Ox 12/26/21 10:00 110 H 18 107/70 94 12/26/21 09:54 97.9 F 88 13 114/78 99 12/26/21 08:00 100.4 F H 113 H 15 12/26/21 08:00 107/68 12/26/21 07:00 100.6 F H 110 H 16 95 12/26/21 08:00 12/26/21 08:00 110 H 12/26/21 06:00 100.8 F H 110 H 18 95 12/26/21 05:00 100.9 F H 110 H 23 90 12/26/21 04:00 101.1 F H 111 H 21 93 12/26/21 03:00 101.1 F H 113 H 27 H 90 12/26/21 02:00 101.3 F H 113 H 16 92 12/26/21 01:00 101.1 F H 113 H 22 94 12/26/21 00:00 101.3 F H 117 H 20 93 12/26/21 00:00 102/66 12/25/21 23:00 100.9 F H 116 H 20 97 12/25/21 22:00 100.8 F H 113 H 21 99 12/25/21 21:00 100.4 F H 115 H 20 12/25/21 20:00 99.9 F H 108 H 20 12/25/21 20:00 12/25/21 18:00 99.3 F 106 H 19 12/25/21 17:00 99.0 F 104 H 20 12/25/21 16:36 98 H 12/25/21 16:00 99.0 F 99 H 17 12/25/21 16:00 98/67 L 12/25/21 15:00 99.0 F 103 H 32 H 12/25/21 14:00 99.0 F 103 H 23 12/25/21 13:00 98.6 F 98 H 17 12/25/21 12:00 99.0 F 93 H 15 12/25/21 12:00 113/71 12/25/21 11:00 99.1 F 95 H 17 O2 Del Method O2 Flow Rate 12/26/21 10:00 Oxymask 5 12/26/21 09:54 Oxymask 5 12/26/21 08:00 12/26/21 08:00 12/26/21 07:00 12/26/21 08:00 Nasal Cannula 4 12/26/21 08:00 12/26/21 06:00 12/26/21 05:00 12/26/21 04:00 12/26/21 03:00 12/26/21 02:00 12/26/21 01:00 12/26/21 00:00 12/26/21 00:00 12/25/21 23:00 12/25/21 22:00 12/25/21 21:00 12/25/21 20:00 12/25/21 20:00 Nasal Cannula 4 12/25/21 18:00 12/25/21 17:00 12/25/21 16:36 12/25/21 16:00 12/25/21 16:00 12/25/21 15:00 12/25/21 14:00 12/25/21 13:00 12/25/21 12:00 12/25/21 12:00 12/25/21 11:00 Transfer of Care Handoff Completed per policy Notes Mental Status: alert / awake / arousable and participated in evaluation Patient Amnestic to Procedure: Yes Nausea / Vomiting: adequately controlled Pain: adequately controlled Airway Patency, RR, SpO2: stable & adequate BP & HR: stable & adequate Hydration State: stable & adequate Anesthetic Complications: no major complications apparent and Pt Satisfied with anesthetic care
[2021-12-26] MEDS: FAMOTIDINE 20 MG in SYRINGE 3 ML IV SCH ×2 (10:25→20:44)
[2021-12-26] MEDS: guaiFENesin 600 MG TABCR PO SCH ×2 (10:25→20:45)
[2021-12-26] MEDS: PREGABALIN 75 MG CAP PO SCH ×3 (10:26→20:46)
--- NOTE | 2021-12-26 10:26 | Pharmacy Report ---
Pharmacy PK ABX Note - Date of Service December 26, 2021 - Assessment and Plan Assessment 12/26: Level this morning indicates regimen is predicted to achieve goal AUC range (predicted to reach this threshold today). Cultures remain negative/pending, but patient is persistently febrile. Patient taken to the OR today for debridement of sacral wound. Or note indicates that cultures will be sent. Continue current regimen for now, however will monitor closely to see if dose increase is warranted. 12/25: 61 year old M receiving vancomycin for treatment of sepsis (possible pulmonary or skin source). Pertinent microbiologic data includes: Negative MRSA Nasal Swab, blood cultures pending, pleural fluid to be sent for culture. Day # 3 of antimicrobial therapy (previously received dapto). Plan Vancomycin * vanc level 11.6 mcg/mL * Loading dose: 1750 mg IV x 1 administered 12/24 @ 2000 * Maintenance dose: 1500 mg IV every 12 hours * Regimen is predicted to achieve target AUC/LINDA of 400-600 mg/L.hr * Trough level ordered for: repeat in 24-48 hours as clinically indicated Pharmacy will continue to follow and will adjust dose/frequency as necessary. Thank you. Pharmacy has transitioned to AUC monitoring for vancomycin. AUC/LINDA is the preferred PK/PD target and is associated with decreased risk of nephrotoxicity compared to traditional trough targets.
[2021-12-26] MEDS: oxyCODONE HCL IR 5 MG TAB (IMMEDIATE RELEASE) PO PRN ×2 (10:35→20:55)
--- NOTE | 2021-12-26 11:02 | Pulmonology Progress Note ---
Date of Service December 26, 2021 Assessment & Plan (1) Acute respiratory failure with hypoxia: Plan: Likely multifactorial secondary to anemia, poor respiratory drive, bilateral effusions and sepsis. Thoracentesis performed of the right hemithorax 12/25/2021 yielding 1.75 L of tu-colored fluid. Patient would like to defer Pleurx catheter placement at this time. (2) Sepsis: Plan: Continue broad-spectrum antibiotics. Pleural fluid cultures will be sent. Pleural fluid does not grossly appear infected. Suspect source of infection is sacral decubitus ulcer which underwent debridement 12/26/2021. (3) Malignant pleural effusion: Plan: Patient would like to defer Pleurx catheter at this time, but will consider in the future. Pleural fluid studies reviewed and did not signify overt infection. Follow-up on final cultures. (4) Metastatic lung cancer (metastasis from lung to other site): Plan: Recommend palliative care consultation and a formal discussion regarding CODE STATUS by the hospitalist team. Plan No further intervention from pulmonology. Appreciate the consult. Call with questions. Admission and Anticipated Discharge Date Admission Date: December 23, 2021 Subjective Patient notes that he slept much better last night and is feeling better this morning. He just came back from the OR for surgical debridement of his sacral ulcer. Pain is minimal. He is currently on 5 L of oxygen via oxime mask. Review of Systems Review of Systems: All systems reviewed & are unremarkable except as noted in HPI & below Physical Exam Physical Exam: Constitutional: Frail-appearing male who appears comfortable. Eyes: Pupils are equal round and reactive to light. Conjunctivae are normal. Anicteric sclera. Ears nose, mouth and throat: Mallampati class 2. Normal posterior oropharynx. Uvula is midline. Neck: Trachea is midline. Visual inspection is normal. Respiratory: Diminished bilaterally. No wheezes. No increased work of breathing. Cardiovascular: Regular rate and rhythm. No murmurs. No edema. Gastrointestinal: Normal bowel sounds, soft, nontender and nondistended. No hepatosplenomegaly noted. Musculoskeletal: Weakness in the lower extremities. Skin: No rashes, warm dry and intact. Neurologic: Weakness in the lower extremities. Psychiatric: Alert and oriented x3 with a euthymic affect. Results & Data Results & Data ([facility]) Vital Signs (Past 12 Hours) Vital Signs Temp Pulse Pulse Resp BP BP Pulse Ox 12/26/21 10:00 110 H 18 107/70 94 12/26/21 09:54 36.6 C 88 13 114/78 99 12/26/21 08:00 38.0 C H 113 H 15 12/26/21 08:00 107/68 12/26/21 07:00 38.1 C H 110 H 16 95 12/26/21 08:00 12/26/21 08:00 110 H 12/26/21 06:00 38.2 C H 110 H 18 95 12/26/21 05:00 38.3 C H 110 H 23 90 12/26/21 04:00 38.4 C H 111 H 21 93 12/26/21 03:00 38.4 C H 113 H 27 H 90 12/26/21 02:00 38.5 C H 113 H 16 92 12/26/21 01:00 38.4 C H 113 H 22 94 12/26/21 00:00 38.5 C H 117 H 20 93 12/26/21 00:00 102/66 12/25/21 23:00 38.3 C H 116 H 20 97 O2 Del Method O2 Flow Rate 12/26/21 10:00 Oxymask 5 12/26/21 09:54 Oxymask 5 12/26/21 08:00 12/26/21 08:00 12/26/21 07:00 12/26/21 08:00 Nasal Cannula 4 12/26/21 08:00 12/26/21 06:00 12/26/21 05:00 12/26/21 04:00 12/26/21 03:00 12/26/21 02:00 12/26/21 01:00 12/26/21 00:00 12/26/21 00:00 12/25/21 23:00 PG Care Time/CCT Total # of Minutes Spent Total Time Spent with Patient: Total time spent is greater than 50% in coordination of care (as documented) at patient's floor/unit and/or counseling patient: Coding Level of Care Code 02353 Subseq Hosp Care Lvl 2 Diagnoses Acute respiratory failure with hypoxia J96.01 Sepsis A41.9 Malignant pleural effusion J91.0 Metastatic lung cancer (metastasis from lung to other site) C34.90
[2021-12-26] MEDS: ONDANSETRON INJ 2 MG/ML 2 ML VIAL IV PRN (13:54)
[2021-12-26] MEDS ORDERED: SODIUM CHLORIDE 0.9% 1000ML 500 ML IV ONE (14:08)
[2021-12-26] MEDS ORDERED: LACTULOSE SYRUP 20 GM/30 ML UDC PO PRN (15:24)
[2021-12-26] MEDS: RIVAROXABAN 20 MG TAB PO SCH (17:07)
[2021-12-26] MEDS: SODIUM CHLORIDE 0.9% 1000ML 1,000 ML IV SCH (17:13)
[2021-12-27] MEDS: MEROPENEM 500 MG in SYRINGE 0 ML IV SCH ×4 (00:54→21:19)
[2021-12-27] MEDS: MoRPHine SULFATE CR 15 MG TABCR PO SCH ×2 (00:54→13:03)
[2021-12-27] MEDS: bisacodyL 10 MG SUPP PR PRN (00:54)
[2021-12-27 05:48] LABS: Hematocrit (blood only) 26.5 % (40.1-51.0); Hemoglobin 8.1 g/dl (14.0-18.0); Mean Corpuscular Hemoglobin 25.8 pg (25.0-34.0); Mean Corpuscular Hgb Conc 30.6 g/dL (32.0-36.0); Mean Corpuscular Volume 84.4 fL (80.0-100.0); Mean Platelet Volume 9.2 fL (9.4-12.4); Platelet Count 436 K/uL (130-400); RDW Coefficient of Variation 18.7 % (11.5-14.5); RDW Standard Deviation 56.7 fL (36.4-46.3); Red Blood Count 3.14 M/uL (4.63-6.08); White Blood Count 4.62 K/ul (4.8-10.8)
[2021-12-27 06:12] LABS: BUN Creatinine Ratio 17.2 (10-20); Basophils # (auto) 0.02 K/uL (0-0.2); Basophils % (auto) 0.4 %; Eosinophils # (auto) 0.01 K/uL (0-0.50); Eosinophils % (auto) 0.2 %; Est GFR (African American) 121.6 ml/min; Est GFR (Non-African American) 104.9 ml/min; Immature Granulocytes # (auto) 0.26 K/uL (0.00-0.02); Immature Granulocytes % (auto) 5.6 %; Lymphocytes % (auto) 10.8 %; Monocytes # (auto) 0.89 K/uL (0.24-0.82); Monocytes % (auto) 19.3 %; Neutrophils # (auto) 2.94 K/uL (1.4-6.5); Neutrophils % (auto) 63.7 %; Potassium 3.6 mmol/L (3.5-5.1)
--- NOTE | 2021-12-27 06:15 | Surgery Progress Note ---
Date of Service December 27, 2021 Assessment & Plan (1) Ulcer of sacral region, stage 3: Plan: 12/27/21 POD#1 status post debridement stage III ulceration sacral area with cultures taken Nurses changed to dressing last evening the area looks fine Consult for wound nurse was placed to evaluate for VAC system Admission and Anticipated Discharge Date Admission Date: December 23, 2021 Subjective Sleeping did not wake him up Results & Data ([facility]) Vital Signs (Past 12 Hours) Vital Signs O2 Del Method O2 Flow Rate 12/26/21 20:00 Nasal Cannula 1 PG Care Time/CCT Total # of Minutes Spent Total Time Spent with Patient: Total time spent is greater than 50% in coordination of care (as documented) at patient's floor/unit and/or counseling patient: Coding Level of Care Code None Diagnoses Ulcer of sacral region, stage 3 L98.429
[2021-12-27] MEDS: ACETAMINOPHEN 325 MG TAB PO PRN ×2 (07:43→17:07)
[2021-12-27] MEDS: ONDANSETRON INJ 2 MG/ML 2 ML VIAL IV PRN ×2 (07:43→17:30)
[2021-12-27] MEDS: FAMOTIDINE 20 MG in SYRINGE 3 ML IV SCH ×2 (07:43→21:20)
[2021-12-27] MEDS: VANCOMYCIN HCL 1,500 MG in SODIUM CHLORIDE 0.9% 500 ML IV SCH ×2 (07:43→21:19)
[2021-12-27] MEDS: guaiFENesin 600 MG TABCR PO SCH ×2 (08:42→21:21)
[2021-12-27] MEDS: PREGABALIN 75 MG CAP PO SCH ×3 (08:42→21:21)
[2021-12-27] MEDS: oxyCODONE HCL IR 5 MG TAB (IMMEDIATE RELEASE) PO PRN ×3 (08:42→21:21)
[2021-12-27] MEDS: SODIUM CHLORIDE 0.9% 1000ML 1,000 ML IV SCH (11:18)
--- NOTE | 2021-12-27 13:03 | Electrocardiogram Report ---
Test Reason : Blood Pressure : / mmHG Vent. Rate : 124 BPM Atrial Rate : 124 BPM P-R Int : 132 ms QRS Dur : 082 ms QT Int : 306 ms P-R-T Axes : 038 -48 -04 degrees QTc Int : 439 ms Sinus tachycardia with frequent Premature ventricular complexes Left axis deviation Low voltage QRS Inferior infarct , age undetermined Cannot rule out Anterior infarct , age undetermined Abnormal ECG When compared with ECG of 23-DEC-2021 20:24, Premature ventricular complexes are now Present Confirmed by Isidro Donaldson ([id number]) on 12/27/2021 1:03:40 PM Referred By: Beatriz East Confirmed By:Isidro Donaldson
--- NOTE | 2021-12-27 13:09 | Hospitalist Progress Note ---
Date of Service December 27, 2021 Assessment & Plan (1) Acute respiratory failure with hypoxia: Plan: On admission was not complaining of cough or dyspnea from baseline, however 12/25 developed wet cough and dyspnea requiring supplemental oxygen. - CT Chest ordered which showed large right sided-pleural effusion, not loculated, more likely malignant effusion as opposed to infected effusion. - Pulmonology consulted for thoracentesis. Also recommended to escalate an tibiotics to vancomycin/meropenem. - 12/25 thoracentesis performed with removal of 1750cc of fluid. Pleur-X declined by patient. - Had conversation with patient and family 12/25 that this effusion will return; what is not clear is exactly when. Recommended he consider Pleur-X, if not now, then in the future as his effusion recollects. - See goals of care below. - Wean oxygen as tolerated. Currently on 2LNC. Patient has O2 at home, often used at bedtime. (2) Malignant pleural effusion: Plan: See above (3) Pressure injury of coccygeal region, unstageable: Plan: Visualized with wound care on 12/24: unstageable coccyx pressure ulcer (6x8cm in size, 2cm in depth), with stage 3 bilateral distal buttock pressure ulcers. - Present on arrival; patient reports was left on bedpan for most of the day during admission at outside hospital. - Enterobacter cloacae and Enterococcus faecalis growing in outpatient cultures. - BCx 12/23 negative to date. - Sepsis suspected to be secondary to skin/soft tissue infection. Pleural fluid culture pending, but not likely to be infectious source. - Wound care consulted, recommended Gen. Surg for consideration of debridement. - Gen Surg consulted; had ulcer debridement on 12/26. - Evaluation today for possible wound vac. Discussed with wound care today. - Tissue cultures pending. - Continue Lyrica TID for burning at site of pressure ulcer. - Tylenol as needed for fever. - Patient requesting skin graft to just "close up" the area. Will reach out to reconstructive surgery. (4) Wound infection: Plan: Admitted due to failure of outpatient tx with Augmentin and doxycycline. - See above. (5) Antineoplastic chemotherapy induced anemia: Plan: Hemoglobin 7.0 upon admission. Transfused 2 units PRBCs. Anemia multifactorial with chemo-induced anemia, bony mets causing decreased hematopoiesis. - Hgb stable at 8.1. - Daily CBC. (6) Constipation due to opioid therapy: Plan: On chronic opiate therapy for cancer-related pain. - Resume patient's suppositories and lactulose as needed for constipation. - Last normal BM 12/24. (7) Chemotherapy induced neutropenia: Plan: Recently was neutropenic, however, ANC this admission is no longer neutropenic. - Follow laboratory serially. 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 Most recent chemotherapy 2 weeks ago. - Continue home morphine ER 30mg q12h scheduled, with IV morphine as needed for breakthrough or severe pain. (9) Bone metastases: Plan: - Pain control with acetaminophen and morphine as noted. (10) Pulmonary embolism: Plan: History of PE s/p IVC filter. - Continue Xarelto (resumed on 12/26 after debridement) (11) S/P IVC filter: Plan: See above (12) Incomplete paraplegia: Plan: Starting to have some feeling in his buttocks and legs, however functionally pa raplegic. - No inpatient needs other than general PT/OT (13) Goals of care, counseling/discussion: Plan: 12/26: Prior provider went to bedside at patient request to discuss code status. He had his living will was brought in for copying and does not want chest compressions or intubation if those things were to be required. Plan Code Status: DNR/DNI FEN: Regular DVT ppx: Xarelto Dispo: Telemetry Admission and Anticipated Discharge Date Admission Date: December 23, 2021 Subjective Feels fairly well today. No real shortness of breath. No chest pain. Denies having much appetite, but then says that he had an entire milk shake last night and that he asked the RN savannah to get him a pizza. It's mostly the food that the doesn't like. Physical Exam Constitutional: WD/WN, vitals as above Eyes: EOM intact bilaterally; no conjunctival abnormality ENMT: external ear and nose normal, oropharynx normal Neck: trachea midline, no thyromegaly normal visual inspection Respiratory: normal respiratory effort, lungs clear to auscultation no respiratory distress Cardiovascular: RRR, no murmur, no edema Gastrointestinal (Abdomen): Inspection/Auscultation: abdomen normal to inspection; abdomen not distended Musculoskeletal: no cyanosis or clubbing, extremities motor strength 5/5 Skin: no rashes, warm and dry Neurologic: moves all extremities and awake Psychiatric: Orientation: alert, oriented to person and cooperative Results & Data Results & Data ([facility]) Vital Signs (Past 12 Hours) Vital Signs Temp Pulse Resp BP Pulse Ox O2 Del Method O2 Flow Rate 12/27/21 10:00 38.4 C H 119 H 22 90 Nasal Cannula 4 12/27/21 08:00 Nasal Cannula 2 12/27/21 08:00 121 H 12/27/21 09:00 38.9 C H 121 H 17 93 12/27/21 08:00 39.0 C H 119 H 19 91 Nasal Cannula 2 12/27/21 08:00 102/69 PG Care Time/CCT Total # of Minutes Spent Total Time Spent with Patient: Total time spent is greater than 50% in coordination of care (as documented) at patient's floor/unit and/or counseling patient: Coding Level of Care Code 18049 Subseq Hosp Care Lvl 2 Diagnoses Acute respiratory failure with hypoxia J96.01 Malignant pleural effusion J91.0 Pressure injury of coccygeal region, unstageable L89.150 Wound infection T14.8XXA; L08.9 Antineoplastic chemotherapy induced anemia D64.81; T45.1X5A Constipation due to opioid therapy K59.03; T40.2X5A Chemotherapy induced neutropenia D70.1; T45.1X5A 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
[2021-12-27] MEDS: RIVAROXABAN 20 MG TAB PO SCH (17:05)
[2021-12-28] MEDS: bisacodyL 10 MG SUPP PR PRN ×2 (00:15→21:16)
[2021-12-28] MEDS: MEROPENEM 500 MG in SYRINGE 0 ML IV SCH ×4 (00:15→18:42)
[2021-12-28] MEDS: MoRPHine SULFATE CR 15 MG TABCR PO SCH ×2 (00:15→14:49)
[2021-12-28] MEDS: ACETAMINOPHEN 325 MG TAB PO PRN ×2 (02:17→19:41)
[2021-12-28] MEDS: BENZONATATE 100 MG CAPSULE PO SCH ×3 (05:52→21:18)
[2021-12-28] MEDS ORDERED: VANCOMYCIN LEVEL ONE (07:30)
--- NOTE | 2021-12-28 08:01 | Surgery Progress Note ---
Date of Service December 28, 2021 Assessment & Plan (1) Ulcer of sacral region, stage 3: Plan: POD 2 debridement of sacral ulcer continue wound vac please contact us again if needed Admission and Anticipated Discharge Date Admission Date: December 23, 2021 Subjective no complaints, minimal pain Physical Exam Skin: wound vac in place Results & Data ([facility]) Vital Signs (Past 12 Hours) Vital Signs Temp Pulse Pulse Resp BP BP Pulse Ox 12/28/21 07:19 36.8 C 134 H 20 115/77 90 12/28/21 02:36 37.8 C H 137 H 20 112/75 90 12/28/21 02:20 38.0 C H 12/27/21 22:30 36.7 C 100 H 20 132/84 95 12/27/21 23:05 12/27/21 22:45 37.8 C H 122 H 20 93/59 L 92 12/27/21 22:00 38.8 C H 123 H 22 91 12/27/21 21:00 38.8 C H 120 H 23 91 O2 Del Method O2 Flow Rate 12/28/21 07:19 Nasal Cannula 4 12/28/21 02:36 Nasal Cannula 2 12/28/21 02:20 12/27/21 22:30 Room Air 12/27/21 23:05 Nasal Cannula 2 12/27/21 22:45 Nasal Cannula 2 12/27/21 22:00 12/27/21 21:00 PG Care Time/CCT Total # of Minutes Spent Total Time Spent with Patient: Total time spent is greater than 50% in coordination of care (as documented) at patient's floor/unit and/or counseling patient: Coding Level of Care Code None Diagnoses Ulcer of sacral region, stage 3 L98.429
[2021-12-28] MEDS: FAMOTIDINE 20 MG in SYRINGE 3 ML IV SCH ×2 (08:09→21:16)
[2021-12-28] MEDS: PREGABALIN 75 MG CAP PO SCH ×3 (08:09→21:16)
[2021-12-28] MEDS: guaiFENesin 600 MG TABCR PO SCH ×2 (08:09→21:18)
[2021-12-28] MEDS: VANCOMYCIN HCL 1,500 MG in SODIUM CHLORIDE 0.9% 500 ML IV SCH ×2 (08:11→21:17)
[2021-12-28 08:37] LABS: Basophils # (auto) 0.05 K/uL (0-0.2); Basophils % (auto) 0.7 %; Eosinophils # (auto) 0.02 K/uL (0-0.50); Eosinophils % (auto) 0.3 %; Hematocrit (blood only) 27.8 % (40.1-51.0); Hemoglobin 8.7 g/dl (14.0-18.0); Immature Granulocytes # (auto) 0.31 K/uL (0.00-0.02); Immature Granulocytes % (auto) 4.4 %; Lymphocytes # (auto) 0.49 K/uL (1.2-3.4); Lymphocytes % (auto) 6.9 %; Mean Corpuscular Hgb Conc 31.3 g/dL (32.0-36.0); Mean Platelet Volume 9.6 fL (9.4-12.4); Monocytes # (auto) 1.42 K/uL (0.24-0.82); Neutrophils # (auto) 4.81 K/uL (1.4-6.5); Neutrophils % (auto) 67.7 %; Platelet Count 514 K/uL (130-400); RDW Coefficient of Variation 18.6 % (11.5-14.5); Red Blood Count 3.35 M/uL (4.63-6.08)
[2021-12-28 09:21] LABS: Albumin Globulin Ratio 0.8 (0.9-2); Albumin Level 2.6 gm/dl (3.4-5.0); BUN Creatinine Ratio 21.1 (10-20); Bilirubin,Total 0.4 mg/dl (0.2-1.0); Calcium 8.6 mg/dl (8.5-10.1); Creatinine Clr Calc Pharmacy 173.6 ml/min; Est GFR (African American) 127.6 ml/min; Est GFR (Non-African American) 110.1 ml/min; Globulin 3.3 gm/dl (2.5-4.0); Magnesium 1.7 mg/dl (1.7-2.4); Potassium 3.4 mmol/L (3.5-5.1); Total Protein 5.9 gm/dl (6.0-8.3)
--- NOTE | 2021-12-28 11:17 | Pharmacy Report ---
Pharmacy Vanc AUC Short Note - Date of Service December 28, 2021 - Assessment & Plan Assessment 12/28: Level this morning appropriate for ongoing therapy, predicted to achieve a goal AUC - will continue same vancomycin dosing. Back culture prelim with Gm neg bacilli, buttock cx with prelim probable enterococcus, repeat bc pending 12/26: Level this morning indicates regimen is predicted to achieve goal AUC range (predicted to reach this threshold today). Cultures remain negative/pending, but patient is persistently febrile. Patient taken to the OR today for debridement of sacral wound. Or note indicates that cultures will be sent. Continue current regimen for now, however will monitor closely to see if dose increase is warranted. 12/25: 61 year old M receiving vancomycin for treatment of sepsis (possible pulmonary or skin source). Pertinent microbiologic data includes: Negative MRSA Nasal Swab, blood cultures pending, pleural fluid to be sent for culture. Day # 3 of antimicrobial therapy (previously received dapto). Plan Vancomycin * Vanc level this morning was ~ 13.7 mg/L * Plan to continue current vancomycin regimen of - 1500 mg IV every 12 hours * Regimen is predicted to achieve target AUC/LINDA of 400-600 mg/L.hr * Trough level ordered for: repeat in 24-48 hours as clinically indicated Pharmacy will continue to follow and will adjust dose/frequency as necessary. Thank you. Pharmacy has transitioned to AUC monitoring for vancomycin. AUC/LINDA is the preferred PK/PD target and is associated with decreased risk of nephrotoxicity compared to traditional trough targets.
--- NOTE | 2021-12-28 11:49 | Hospitalist Progress Note ---
Date of Service December 28, 2021 Assessment & Plan (1) Acute respiratory failure with hypoxia: Plan: On admission was not complaining of cough or dyspnea from baseline, however 12/25 developed wet cough and dyspnea requiring supplemental oxygen. - CT Chest ordered which showed large right sided-pleural effusion, not loculated, more likely malignant effusion as opposed to infected effusion. - Pulmonology consulted for thoracentesis. Also recommended to escalate an tibiotics to vancomycin/meropenem. - 12/25 thoracentesis performed with removal of 1750cc of fluid. Pleur-X declined by patient. - Had conversation with patient and family 12/25 that this effusion will return; what is not clear is exactly when. Recommended he consider Pleur-X, if not now, then in the future as his effusion recollects. - See goals of care below. - Wean oxygen as tolerated. Currently on 2 - 4LNC. Patient has O2 at home, often used at bedtime. (2) Malignant pleural effusion: Plan: See above (3) Pressure injury of coccygeal region, unstageable: Plan: Visualized with wound care on 12/24: unstageable coccyx pressure ulcer (6x8cm in size, 2cm in depth), with stage 3 bilateral distal buttock pressure ulcers. - Present on arrival; patient reports was left on bedpan for most of the day during admission at outside hospital. - Enterobacter cloacae and Enterococcus faecalis growing in outpatient cultures. - BCx 12/23 negative to date. - Sepsis suspected to be secondary to skin/soft tissue infection. Pleural fluid culture pending, but not likely to be infectious source. - Wound care consulted, recommended Gen. Surg for consideration of debridement. - Gen Surg consulted; had ulcer debridement on 12/26. - Wound vac applied on 12/27. - Tissue cultures pending. - Continue Lyrica TID for burning at site of pressure ulcer. - Tylenol as needed for fever. - Patient requesting skin graft to just "close up" the area. Reached out to reconstructive surgery on 12/27. Reviewed case/wound images. - Will take at least a month or two for the wound bed to be ready for something like that. -> If (4) Wound infection: Plan: Admitted due to failure of outpatient tx with Augmentin and doxycycline. - See above. (5) Antineoplastic chemotherapy induced anemia: Plan: Hemoglobin 7.0 upon admission. Transfused 2 units PRBCs. Anemia multifactorial with chemo-induced anemia, bony mets causing decreased hematopoiesis. - Hgb stable at 8.7. - Daily CBC. (6) Constipation due to opioid therapy: Plan: On chronic opiate therapy for cancer-related pain. - Resume patient's suppositories and lactulose as needed for constipation. - Last normal BM 12/24. (7) Chemotherapy induced neutropenia: Plan: Recently was neutropenic, however, ANC this admission is no longer neutropenic. - Follow laboratory serially. 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 Most recent chemotherapy 2 weeks ago. - Continue home morphine ER 30mg q12h scheduled, with IV morphine as needed for breakthrough or severe pain. (9) Bone metastases: Plan: - Pain control with acetaminophen and morphine as noted. (10) Pulmonary embolism: Plan: History of PE s/p IVC filter. - Continue Xarelto (resumed on 12/26 after debridement) (11) S/P IVC filter: Plan: See above (12) Incomplete paraplegia: Plan: Starting to have some feeling in his buttocks and legs, however functionally paraplegic. - No inpatient needs other than general PT/OT (13) Goals of care, counseling/discussion: Plan: 12/26: Prior provider went to bedside at patient request to discuss code status. He had his living will was brought in for copying and does not want chest compressions or intubation if those things were to be required. Plan Code Status: DNR/DNI FEN: Regular DVT ppx: Xarelto Dispo: Telemetry Admission and Anticipated Discharge Date Admission Date: December 23, 2021 Subjective Doing well today. Reports no pain during application or presently from wound vac. Appetite stable/improving. Reports no fevers/chills, chest pain, shortness of breath, abdominal pain, nausea, or vomiting. Physical Exam Constitutional: WD/WN, vitals as above Eyes: EOM intact bilaterally; no conjunctival abnormality ENMT: external ear and nose normal, oropharynx normal Neck: trachea midline, no thyromegaly normal visual inspection Respiratory: normal respiratory effort, lungs clear to auscultation no respiratory distress Cardiovascular: RRR, no murmur, no edema Gastrointestinal (Abdomen): Inspection/Auscultation: abdomen normal to inspection; abdomen not distended Musculoskeletal: no cyanosis or clubbing, extremities motor strength 5/5 Skin: no rashes, warm and dry Neurologic: moves all extremities and awake Psychiatric: Orientation: alert, oriented to person and cooperative Results & Data Results & Data ([facility]) Vital Signs (Past 12 Hours) Vital Signs Temp Pulse Resp BP BP Pulse Ox O2 Del Method 12/28/21 11:16 36.7 C 114 H 16 100/61 95 Nasal Cannula 12/28/21 07:19 36.8 C 134 H 20 115/77 90 Nasal Cannula 12/28/21 02:36 37.8 C H 137 H 20 112/75 90 Nasal Cannula 12/28/21 02:20 38.0 C H O2 Flow Rate 12/28/21 11:16 4 12/28/21 07:19 4 12/28/21 02:36 2 12/28/21 02:20 PG Care Time/CCT Total # of Minutes Spent Total Time Spent with Patient: Total time spent is greater than 50% in coordination of care (as documented) at patient's floor/unit and/or counseling patient: Coding Level of Care Code 34439 Subseq Hosp Care Lvl 2 Diagnoses Acute respiratory failure with hypoxia J96.01 Malignant pleural effusion J91.0 Pressure injury of coccygeal region, unstageable L89.150 Wound infection T14.8XXA; L08.9 Antineoplastic chemotherapy induced anemia D64.81; T45.1X5A Constipation due to opioid therapy K59.03; T40.2X5A Chemotherapy induced neutropenia D70.1; T45.1X5A 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
[2021-12-28] MEDS: RIVAROXABAN 20 MG TAB PO SCH (18:00)
--- NOTE | 2021-12-28 18:01 | XRay Report ---
SINGLE VIEW CHEST CLINICAL HISTORY: Cough and fever. FINDINGS: 2 AP, portable, upright chest radiographs are compared to study dated 12/25/2021 and correla mehran with chest CT dated 12/24/2021. The cardiomediastinal silhouette is unremarkable. There is pulmona ry vascular congestion. There are right larger than left pleural effusions with dependent consolidati on. A right upper lobe pulmonary lesion is again suggested. No pneumothorax is seen. The skeletal str uctures are osteopenic. The bony thorax is grossly intact. Spinal rods are in place. IMPRESSION: 1. Pulmonary vascular congestion. 2. Right large left pleural effusions with dependent consolidation. Effusions have modestly increased in size as compared to 12/25/2021. 3. A right upper lobe pulmonary mass lesion is again suggested. This was better characterized on the 12/24/[address] ACT 112: Negative or not required by law. Electronically signed by: Clay Neri M.D. 12/28/2021 6:00 PM
[2021-12-28 19:47] LABS: Appearance Urine Turbid (Clear); Bacteria Urine Automated Negative (Negative); Bilirubin Urine Negative (Negative); Blood Urine Negative (Negative); Color Urine Yellow; Epithelial Cell Urine Auto >30 /lpf (0-5); Glucose Urine UA Negative (Negative); Ketones Urine Negative (Negative); Leukocyte Esterase Urine Negative (Negative); Nitrite Urine Negative (Negative); Protein Urine Trace (Negative); RBC Urine Automated 0-4 /hpf (0-4); Specific Gravity Urine 1.021 (1.000-1.030); Urobilinogen Urine Negative (Negative)
[2021-12-28 20:03] LABS: Mucus Urine Present (None Prsent)
[2021-12-28 20:04] LABS: Calcium Oxalate Crystals Urine Present (None Prsent)
[2021-12-28] MEDS: oxyCODONE HCL IR 5 MG TAB (IMMEDIATE RELEASE) PO PRN (21:16)
[2021-12-29] MEDS: MoRPHine SULFATE CR 15 MG TABCR PO SCH ×2 (00:16→12:58)
[2021-12-29] MEDS: MEROPENEM 500 MG in SYRINGE 0 ML IV SCH ×4 (00:16→19:28)
[2021-12-29 06:13] LABS: Hematocrit (blood only) 25.9 % (40.1-51.0); Hemoglobin 8.2 g/dl (14.0-18.0); Mean Corpuscular Hemoglobin 26.4 pg (25.0-34.0); Mean Corpuscular Hgb Conc 31.7 g/dL (32.0-36.0); Mean Corpuscular Volume 83.3 fL (80.0-100.0); Mean Platelet Volume 9.8 fL (9.4-12.4); Platelet Count 534 K/uL (130-400); RDW Coefficient of Variation 18.6 % (11.5-14.5); RDW Standard Deviation 55.8 fL (36.4-46.3); Red Blood Count 3.11 M/uL (4.63-6.08); White Blood Count 7.85 K/ul (4.8-10.8)
[2021-12-29] MEDS: ONDANSETRON INJ 2 MG/ML 2 ML VIAL IV PRN (06:33)
[2021-12-29 06:34] LABS: BUN Creatinine Ratio 16.9 (10-20); Calcium 8.3 mg/dl (8.5-10.1); Creatinine Clr Calc Pharmacy 169.1 ml/min; Est GFR (African American) 125.8 ml/min; Est GFR (Non-African American) 108.5 ml/min; Magnesium 1.6 mg/dl (1.7-2.4); Potassium 3.3 mmol/L (3.5-5.1)
[2021-12-29] MEDS: BENZONATATE 100 MG CAPSULE PO SCH ×3 (08:05→19:52)
[2021-12-29] MEDS: VANCOMYCIN HCL 1,500 MG in SODIUM CHLORIDE 0.9% 500 ML IV SCH (08:05)
[2021-12-29] MEDS: FAMOTIDINE 20 MG in SYRINGE 3 ML IV SCH ×2 (08:05→19:56)
[2021-12-29] MEDS: PREGABALIN 75 MG CAP PO SCH ×3 (08:05→19:56)
[2021-12-29] MEDS: ACETAMINOPHEN 325 MG TAB PO PRN (08:05)
[2021-12-29] MEDS: guaiFENesin 600 MG TABCR PO SCH ×2 (08:06→19:53)
[2021-12-29] MEDS: METOCLOPRAMIDE HCL INJ 5 MG/ML 2 ML VIAL IV PRN ×2 (13:18→19:56)
[2021-12-29] MEDS: RIVAROXABAN 20 MG TAB PO SCH (16:22)
--- NOTE | 2021-12-29 19:23 | Hospitalist Progress Note ---
Date of Service December 29, 2021 Assessment & Plan (1) Acute respiratory failure with hypoxia: Plan: On admission was not complaining of cough or dyspnea from baseline, however 12/25 developed wet cough and dyspnea requiring supplemental oxygen. - CT Chest ordered which showed large right sided-pleural effusion, not loculated, more likely malignant effusion as opposed to infected effusion. - Pulmonology consulted for thoracentesis. Also recommended to escalate an tibiotics to vancomycin/meropenem. - 12/25 thoracentesis performed with removal of 1750cc of fluid. Pleur-X declined by patient. - Had conversation with patient and family 12/25 that this effusion will return; what is not clear is exactly when. Recommended he consider Pleur-X, if not now, then in the future as his effusion recollects. - Wean oxygen as tolerated. Currently on 2 - 4LNC. Patient has O2 at home, often used at bedtime. - CXR on 12/28 showed re-accumulation of fluid; however, respiratory status staying largely stable. If any changes, would consider reaching out to radiology or pulm for repeat thoracentesis. (2) Malignant pleural effusion: Plan: See above (3) Pressure injury of coccygeal region, unstageable: Plan: Visualized with wound care on 12/24: unstageable coccyx pressure ulcer (6x8cm in size, 2cm in depth), with stage 3 bilateral distal buttock pressure ulcers. - Present on arrival; patient reports was left on bedpan for most of the day during admission at outside hospital. - Enterobacter cloacae and Enterococcus faecalis growing in outpatient cultures. - BCx 12/23 negative to date. - Sepsis suspected to be secondary to skin/soft tissue infection. Pleural fluid culture negative. - Wound care consulted, recommended Gen. Surg for consideration of debridement. - Gen Surg consulted; had ulcer debridement on 12/26. - Wound vac applied on 12/27. - Tissue cultures growing Enterococcus faecalis, Lindsay albicans/dublinensis, Bacteroides fragilis, and probably Pseudomonas. - Continue Lyrica TID for burning at site of pressure ulcer. - Tylenol as needed for fever. - Patient requesting skin graft to just "close up" the area. Reached out to reconstructive surgery on 12/27. Reviewed case/wound images. - Will take at least a month or two for the wound bed to be ready for something like that. -> On 12/29, stopped vanc/meropenem. Will switch to Zosyn mono-therapy. This should cover all 4 of the cultures present, as well as the the Enterbacter cloacae & E. facalis. Discussed with pharmacy. From PCP note on 12/17: Just today 12/23/21 obtained 12/15 wound culture results from [facility]:: Heavy E cloacae & E fecalis. --> E cloacae: Sensitive to cefepime, cipro, gentamicin, imipenem, levofloxacin --> E fecalis: Sensitive to ampicillin, linezolid, vancomycin, daptomycin, gentamicin (4) Wound infection: Plan: Admitted due to failure of outpatient tx with Augmentin and doxycycline. - See above. - Still having nearly daily fevers. Looked for source of infection: blood cultures, CXR, UA all do not point toward new, acute infection. Current abx cove r all 5 different bacteria isolated from wound. Possibly due to compression atelectasis from effusions vs. cancer itself? (5) Antineoplastic chemotherapy induced anemia: Plan: Hemoglobin 7.0 upon admission. Transfused 2 units PRBCs. Anemia multifactorial with chemo-induced anemia, bony mets causing decreased hematopoiesis. - Hgb down to 8.2 today, but still mostly staying stable. - Daily CBC. (6) Constipation due to opioid therapy: Plan: On chronic opiate therapy for cancer-related pain. - Resume patient's suppositories and lactulose as needed for constipation. - Last normal BM 12/24. (7) Chemotherapy induced neutropenia: Plan: Recently was neutropenic, however, ANC this admission is no longer neutropenic. - Follow laboratory serially. 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 Most recent chemotherapy 2 weeks ago. - Continue home morphine ER 30mg q12h scheduled, with IV morphine as needed for breakthrough or severe pain. - Discussed with Dr. Fofana on 12/29. Plan to resume chemo next week if infection is under control. (9) Bone metastases: Plan: - Pain control with acetaminophen and morphine as noted. (10) Pulmonary embolism: Plan: History of PE s/p IVC filter. - Continue Xarelto (resumed on 12/26 after debridement) (11) S/P IVC filter: Plan: See above (12) Incomplete paraplegia: Plan: Starting to have some feeling in his buttocks and legs, however functionally paraplegic. - No inpatient needs other than general PT/OT (13) Goals of care, counseling/discussion: Plan: 12/26: Prior provider went to bedside at patient request to discuss code status. He had his living will was brought in for copying and does not want chest compressions or intubation if those things were to be required. Plan Code Status: DNR/DNI FEN: Regular DVT ppx: Xarelto Dispo: Telemetry Admission and Anticipated Discharge Date Admission Date: December 23, 2021 Subjective Lots of nausea today. Reglan helped. Was able to eat some soup and shake. Otherwise, not feeling really great. Physical Exam Constitutional: WD/WN, vitals as above Eyes: EOM intact bilaterally; no conjunctival abnormality ENMT: external ear and nose normal, oropharynx normal Neck: trachea midline, no thyromegaly normal visual inspection Respiratory: normal respiratory effort, lungs clear to auscultation no respiratory distress Cardiovascular: RRR, no murmur, no edema Gastrointestinal (Abdomen): Inspection/Auscultation: abdomen normal to inspection; abdomen not distended Musculoskeletal: no cyanosis or clubbing, extremities motor strength 5/5 Skin: no rashes, warm and dry Neurologic: moves all extremities and awake Psychiatric: Orientation: alert, oriented to person and cooperative Results & Data Results & Data ([facility]) Vital Signs (Past 12 Hours) Vital Signs Temp Pulse Pulse Resp BP BP Pulse Ox 12/29/21 15:41 116 H 12/29/21 15:26 36.6 C 112 H 16 94/61 L 90 12/29/21 12:05 36.9 C 110 H 18 93/61 L 89/50 L 95 12/29/21 08:00 12/29/21 07:31 38.5 C H 134 H 18 93/58 L 92/63 L 94 O2 Del Method O2 Flow Rate 12/29/21 15:41 12/29/21 15:26 Nasal Cannula 4 12/29/21 12:05 Nasal Cannula 4 12/29/21 08:00 Nasal Cannula 3 12/29/21 07:31 Nasal Cannula 4 PG Care Time/CCT Total # of Minutes Spent Total Time Spent with Patient: Total time spent is greater than 50% in coordination of care (as documented) at patient's floor/unit and/or counseling patient: Coding Level of Care Code 92343 Subseq Hosp Care Lvl 3 Diagnoses Acute respiratory failure with hypoxia J96.01 Malignant pleural effusion J91.0 Pressure injury of coccygeal region, unstageable L89.150 Wound infection T14.8XXA; L08.9 Antineoplastic chemotherapy induced anemia D64.81; T45.1X5A Constipation due to opioid therapy K59.03; T40.2X5A Chemotherapy induced neutropenia D70.1; T45.1X5A 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
[2021-12-29] MEDS ORDERED: PIPERACILLIN/TAZOBACTAM 4.5 GM in DEXTROSE 5% 100 ML IV ONE (20:00)
[2021-12-29] MEDS ORDERED: POTASSIUM CHLORIDE CRTAB 20 MEQ TABCR PO STA (21:04)
[2021-12-29] MEDS: MAGNESIUM SULFATE / D5W 1 GM/100 ML BAG IV SCH ×2 (21:35→23:10)
[2021-12-30] MEDS: ACETAMINOPHEN 325 MG TAB PO PRN (00:02)
[2021-12-30] MEDS: MoRPHine SULFATE CR 15 MG TABCR PO SCH ×2 (00:02→13:09)
[2021-12-30] MEDS: MAGNESIUM SULFATE / D5W 1 GM/100 ML BAG IV SCH (01:05)
[2021-12-30] MEDS: PIPERACILLIN/TAZOBACTAM 4.5 GM in DEXTROSE 5% 100 ML IV SCH ×3 (03:16→17:21)
[2021-12-30 05:53] LABS: Hematocrit (blood only) 24.6 % (40.1-51.0); Hemoglobin 7.7 g/dl (14.0-18.0); Mean Corpuscular Hemoglobin 25.8 pg (25.0-34.0); Mean Corpuscular Hgb Conc 31.3 g/dL (32.0-36.0); Mean Corpuscular Volume 82.3 fL (80.0-100.0); Mean Platelet Volume 9.6 fL (9.4-12.4); Platelet Count 557 K/uL (130-400); RDW Coefficient of Variation 18.4 % (11.5-14.5); Red Blood Count 2.99 M/uL (4.63-6.08); White Blood Count 7.68 K/ul (4.8-10.8)
[2021-12-30 06:17] LABS: Calcium 8.1 mg/dl (8.5-10.1); Creatinine Clr Calc Pharmacy 198.8 ml/min; Est GFR (African American) 134.6 ml/min; Est GFR (Non-African American) 116.1 ml/min; Potassium 3.4 mmol/L (3.5-5.1)
[2021-12-30] MEDS: METOCLOPRAMIDE HCL INJ 5 MG/ML 2 ML VIAL IV PRN ×2 (08:43→17:21)
[2021-12-30] MEDS: PREGABALIN 75 MG CAP PO SCH ×3 (09:29→20:22)
[2021-12-30] MEDS: FAMOTIDINE 20 MG in SYRINGE 3 ML IV SCH ×2 (09:29→20:22)
[2021-12-30] MEDS: BENZONATATE 100 MG CAPSULE PO SCH ×3 (09:29→20:19)
[2021-12-30] MEDS: guaiFENesin 600 MG TABCR PO SCH ×2 (09:29→20:22)
[2021-12-30] MEDS: bisacodyL 10 MG SUPP PR PRN (09:33)
[2021-12-30] MEDS: ONDANSETRON INJ 2 MG/ML 2 ML VIAL IV PRN (13:10)
[2021-12-30] MEDS: RIVAROXABAN 20 MG TAB PO SCH (17:18)
--- NOTE | 2021-12-30 17:35 | Hospitalist Progress Note ---
Date of Service December 30, 2021 Assessment & Plan (1) Acute respiratory failure with hypoxia: Plan: Resolving following thoracentesis for pleural effusion -A total of 1700 cc was removed, most likley malignant effusion given his hx of lung ca -Had conversation with patient and family 12/25 that this effusion will return; what is not clear is exactly when. Recommended he consider Pleur-X, if not now, then in the future as his effusion recollects. -Patient declined pleuryx for now - Wean oxygen as tolerated. Currently on 2 - 4LNC. Patient has O2 at home, often used at bedtime. - CXR on 12/28 showed re-accumulation of fluid; however, respiratory status staying largely stable. If any changes, would consider reaching out to radiology or pulm for repeat thoracentesis. (2) Malignant pleural effusion: Plan: See above (3) Pressure injury of coccygeal region, unstageable: Plan: Visualized with wound care on 12/24: unstageable coccyx pressure ulcer (6x8cm in size, 2cm in depth), with stage 3 bilateral distal buttock pressure ulcers. - Present on arrival; patient reports was left on bedpan for most of the day during admission at outside hospital. - Enterobacter cloacae and Enterococcus faecalis growing in outpatient cultures. - BCx 12/23 negative to date. - Sepsis suspected to be secondary to skin/soft tissue infection. Pleural fluid culture negative. - Wound care consulted, recommended Gen. Surg for consideration of debridement. - Gen Surg consulted; had ulcer debridement on 12/26. - Wound vac applied on 12/27. - Tissue cultures growing Enterococcus faecalis, Lindsay albicans/dublinensis, Bacteroides fragilis, and probably Pseudomonas. - Continue Lyrica TID for burning at site of pressure ulcer. - Tylenol as needed for fever. - Patient requesting skin graft to just "close up" the area. Reached out to reconstructive surgery on 12/27. Reviewed case/wound images. - Will take at least a month or two for the wound bed to be ready for something like that. -> On 12/29, stopped vanc/meropenem. -Currently on Zosyn mono-therapy. This should cover all 4 of the cultures present, as well as the the Enterbacter cloacae & E. facalis. Discussed with pharmacy. -May need at least 1 week of antibiotics From PCP note on 12/17: Just today 12/23/21 obtained 12/15 wound culture results from [facility]:: Heavy E cloacae & E fecalis. --> E cloacae: Sensitive to cefepime, cipro, gentamicin, imipenem, levofloxacin --> E fecalis: Sensitive to ampicillin, linezolid, vancomycin, daptomycin, gentamicin (4) Wound infection: Plan: Admitted due to failure of outpatient tx with Augmentin and doxycycline. - See above. - Still having nearly daily fevers. Looked for source of infection: blood cultures, CXR, UA all do not point toward new, acute infection. Current abx cover all 5 different bacteria isolated from wound. Possibly due to compression atelectasis from effusions vs. cancer itself? (5) Antineoplastic chemotherapy induced anemia: Plan: Hemoglobin 7.0 upon admission. Transfused 2 units PRBCs. Anemia multifactorial with chemo-induced anemia, bony mets causing decreased hematopoiesis. - Hgb down to 8.2 today, but still mostly staying stable. - Daily CBC. (6) Constipation due to opioid therapy: Plan: On chronic opiate therapy for cancer-related pain. - Resume patient's suppositories and lactulose as needed for constipation. - Last normal BM 12/24. (7) Chemotherapy induced neutropenia: Plan: Recently was neutropenic, however, ANC this admission is no longer neutropenic. - Follow laboratory serially. 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 Most recent chemotherapy 2 weeks ago. - Continue home morphine ER 30mg q12h scheduled, with IV morphine as needed for breakthrough or severe pain. - Discussed with Dr. Fofana on 12/29. Plan to resume chemo next week if infection is under control. (9) Bone metastases: Plan: - Pain control with acetaminophen and morphine as noted. (10) Pulmonary embolism: Plan: History of PE s/p IVC filter. - Continue Xarelto (resumed on 12/26 after debridement) (11) S/P IVC filter: Plan: See above (12) Incomplete paraplegia: Plan: Starting to have some feeling in his buttocks and legs, however functionally paraplegic. - No inpatient needs other than general PT/OT (13) Goals of care, counseling/discussion: Plan: 9/18: Prior provider went to bedside at patient request to discuss code status. He had his living will was brought in for copying and does not want chest compressions or intubation if those things were to be required. Plan home wound vac has been ordered, will d/c hopefully tomorrow Code Status: DNR/DNI FEN: Regular DVT ppx: [place] Dispo: Telemetry Admission and Anticipated Discharge Date Admission Date: December 23, 2021 Subjective patient seen and examined, at the bedside, feels better overall, wants to go home Review of Systems Review of Systems: All systems reviewed are negative, apart from the ones contained in the history. Physical Exam Physical Exam: The patient is awake, alert and oriented 3, well developed and well nourished, normocephalic and atraumatic, lying in bed and in no acute distress. HEENT--PERRL, EOMI, mucous membranes and oropharynx mildly dry Neck--supple. No JVD. No bruits. Thyroid normal, trachea midline, no adenopathy. Heart--normal S1 and S2. No murmurs, rubs or gallops. Lungs--clear bilaterally, no respiratory distress, no accessory muscle use. Abdomen--normal bowel sounds and soft. Mild epigastric and left sided abdominal pain Extremities--paraplegic Dermatologic--sacral decubitus ulcer Neurologic--cranial nerves II through XII grossly intact. Rheumatologic--normal range of motion. Psychiatric--normal affect. Results & Data Results & Data ([facility]) Vital Signs (Past 12 Hours) Vital Signs Temp Pulse Pulse Resp BP Pulse Ox O2 Del Method 12/30/21 16:00 118 H 12/30/21 07:00 113 H 12/30/21 10:00 Nasal Cannula 12/30/21 13:00 98.4 F 99 H 18 124/63 97 12/30/21 08:00 98.6 F 100 H 20 115/60 95 O2 Flow Rate 12/30/21 16:00 12/30/21 07:00 12/30/21 10:00 3 12/30/21 13:00 12/30/21 08:00 PG Care Time/CCT Total # of Minutes Spent Total Time Spent with Patient: Total time spent is greater than 50% in coordination of care (as documented) at patient's floor/unit and/or counseling patient: Coding Level of Care Code 91074 Subseq Hosp Care Lvl 2 Diagnoses Acute respiratory failure with hypoxia J96.01 Malignant pleural effusion J91.0 Pressure injury of coccygeal region, unstageable L89.150 Wound infection T14.8XXA; L08.9 Antineoplastic chemotherapy induced anemia D64.81; T45.1X5A Constipation due to opioid therapy K59.03; T40.2X5A Chemotherapy induced neutropenia D70.1; T45.1X5A 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 Time Spent (min) 35
[2021-12-31] MEDS: MoRPHine SULFATE CR 15 MG TABCR PO SCH ×2 (01:55→12:16)
[2021-12-31] MEDS: PIPERACILLIN/TAZOBACTAM 4.5 GM in DEXTROSE 5% 100 ML IV SCH (01:55)
[2021-12-31] MEDS: ACETAMINOPHEN 325 MG TAB PO PRN (04:17)
[2021-12-31] MEDS: METOCLOPRAMIDE HCL INJ 5 MG/ML 2 ML VIAL IV PRN (07:28)
[2021-12-31] MEDS: FAMOTIDINE 20 MG in SYRINGE 3 ML IV SCH (08:28)
[2021-12-31] MEDS: PREGABALIN 75 MG CAP PO SCH ×2 (08:28→13:59)
[2021-12-31] MEDS: guaiFENesin 600 MG TABCR PO SCH (08:28)
[2021-12-31] MEDS: BENZONATATE 100 MG CAPSULE PO SCH ×2 (08:28→13:59)
[2021-12-31] MEDS ORDERED: FLUCONAZOLE 100 MG TAB PO SCH (09:00)
[2021-12-31] MEDS ORDERED: CIPROFLOXACIN 500 MG TAB PO SCH (09:00)
[2021-12-31] MEDS ORDERED: AMOXICILLIN/CLAVULANATE 875 MG TAB PO SCH (09:00)
[2021-12-31 10:23] LABS: Creatinine Clr Calc Pharmacy 167.6 ml/min; Est GFR (African American) 125.8 ml/min; Est GFR (Non-African American) 108.5 ml/min
[2021-12-31] MEDS: ONDANSETRON INJ 2 MG/ML 2 ML VIAL IV PRN (12:16)
--- NOTE | 2021-12-31 14:42 | Discharge Summary ---
Date of Service December 31, 2021 Admission HPI Per Admitting Provider The patient is a 61-year-old male with a past medical history including chemotherapy-induced neutropenia, sacral decubitus wound infections, pressure ulcer of ischium, chemotherapy-induced nausea, incomplete paraplegia, cancer pain syndrome, anemia, malignant pleural effusion, status post IVC filter, PE, metastatic lung cancer to liver and bone. The patient was referred to the emergency department/direct admission after failure of outpatient treatment with Augmentin and doxycycline, with cultures growing Enterococcus faecalis Enterobacter cloacae. The patient complains of fatigue, and generalized malaise, as noted by family in attendance Principal Diagnosis wound infection Discharge Exam The patient is awake, alert and oriented 3, well developed and well nourished, normocephalic and atraumatic, lying in bed and in no acute distress. HEENT--PERRL, EOMI, mucous membranes and oropharynx mildly dry Neck--supple. No JVD. No bruits. Thyroid normal, trachea midline, no adenopathy. Heart--normal S1 and S2. No murmurs, rubs or gallops. Lungs--clear bilaterally, no respiratory distress, no accessory muscle use. Abdomen--normal bowel sounds and soft. Mild epigastric and left sided abdominal pain Extremities--paraplegic Dermatologic--sacral decubitus ulcer Neurologic--cranial nerves II through XII grossly intact. Rheumatologic--normal range of motion. Psychiatric--normal affect. Discharge Data Allergies Allergy/AdvReac Type Severity Reaction Status Date / Time escitalopram AdvReac Intermediate Nausea Verified 12/23/21 21:23 gabapentin AdvReac Migraine Verified 12/23/21 21:23 Consultations 12/23/21 21:22 ED Decision to Admit Stat 12/24/21 11:59 Consult General Surgery Routine 12/24/21 18:05 Consult Pulmonology Routine Procedures Performed Operation Date: 12/26/21 09:00 Actual Procedures p Debridement Sacral Ulceration(Not Applicable) - Jhoan Cohen MD, FACS Ordered Studies 12/24/21 16:10 CT angio chest PE protocol Stat 12/25/21 08:24 US point of care ultrasound Stat Hospital Course (1) Acute respiratory failure with hypoxia: Resolving following thoracentesis for pleural effusion -A total of 1700 cc was removed, most likley malignant effusion given his hx of lung ca -Had conversation with patient and family 12/25 that this effusion will return; what is not clear is exactly when. Recommended he consider Pleur-X, if not now, then in the future as his effusion recollects. -Patient declined pleuryx for now - Wean oxygen as tolerated. Currently on 2 - 4LNC. Patient has O2 at home, often used at bedtime. - CXR on 12/28 showed re-accumulation of fluid; however, respiratory status staying largely stable. If any changes, would consider reaching out to radiology or pulm for repeat thoracentesis. (2) Malignant pleural effusion: See above (3) Pressure injury of coccygeal region, unstageable: Visualized with wound care on 12/24: unstageable coccyx pressure ulcer (6x8cm in size, 2cm in depth), with stage 3 bilateral distal buttock pressure ulcers. - Present on arrival; patient reports was left on bedpan for most of the day during admission at outside hospital. - Enterobacter cloacae and Enterococcus faecalis growing in outpatient cultures. - BCx 12/23 negative to date. - Sepsis suspected to be secondary to skin/soft tissue infection. Pleural fluid culture negative. - Wound care consulted, recommended Gen. Surg for consideration of debridement. - Gen Surg consulted; had ulcer debridement on 12/26. - Wound vac applied on 12/27. - Tissue cultures growing Enterococcus faecalis, Lindsay albicans/dublinensis, Bacteroides fragilis, and probably Pseudomonas. - Continue Lyrica TID for burning at site of pressure ulcer. - Tylenol as needed for fever. - Patient requesting skin graft to just "close up" the area. Reached out to reconstructive surgery on 12/27. Reviewed case/wound images. - Will take at least a month or two for the wound bed to be ready for something like that. -> On 12/29, stopped vanc/meropenem. -Currently on Zosyn mono-therapy. This should cover all 4 of the cultures present, as well as the the Enterbacter cloacae & E. facalis. Discussed with pharmacy. -May need at least 1 week of antibiotics -will discarge on oral Fluconazole, Ciprofloxacin and Augmentin From PCP note on 12/17: Just today 12/23/21 obtained 12/[address] [facility]:: Heavy E cloacae & E fecalis. --> E cloacae: Sensitive to cefepime, cipro, gentamicin, imipenem, levofloxacin --> E fecalis: Sensitive to ampicillin, linezolid, vancomycin, daptomycin, gentamicin (4) Wound infection: Admitted due to failure of outpatient tx with Augmentin and doxycycline. however, that failure may have been due to presence of pseudomonas, which was not adequately covered - See above. - Still having nearly daily fevers. Looked for source of infection: blood cultures, CXR, UA all do not point toward new, acute infection. Current abx cover all 5 different bacteria isolated from wound. Possibly due to compression atelectasis from effusions vs. cancer itself? (5) Antineoplastic chemotherapy induced anemia: Hemoglobin 7.0 upon admission. Transfused 2 units PRBCs. Anemia multifactorial with chemo-induced anemia, bony mets causing decreased hematopoiesis. - Hgb down to 8.2 today, but still mostly staying stable. - Daily CBC. (6) Constipation due to opioid therapy: On chronic opiate therapy for cancer-related pain. - Resume patient's suppositories and lactulose as needed for constipation. - Last normal BM 12/24. (7) Chemotherapy induced neutropenia: Recently was neutropenic, however, ANC this admission is no longer neutropenic. - Follow laboratory serially. 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 Most recent chemotherapy 2 weeks ago. - Continue home morphine ER 30mg q12h scheduled, with IV morphine as needed for breakthrough or severe pain. - Discussed with Dr. Fofana on 12/29. Plan to resume chemo next week if infection is under control. (9) Bone metastases: - Pain control with acetaminophen and morphine as noted. (10) Pulmonary embolism: History of PE s/p IVC filter. - Continue Xarelto (resumed on 12/26 after debridement) (11) S/P IVC filter: See above (12) Incomplete paraplegia: Starting to have some feeling in his buttocks and legs, however functionally paraplegic. - No inpatient needs other than general PT/OT (13) Goals of care, counseling/discussion: 12/26: Prior provider went to bedside at patient request to discuss code status. He had his living will was brought in for copying and does not want chest compressions or intubation if those things were to be required. Plan home wound vac has been ordered, will d/c hopefully tomorrow Code Status: DNR/DNI FEN: Regular DVT ppx: Xarelto Dispo: Telemetry Total Time Total Time Spent Total Time Spent (In Minutes): 35 Discharge Plan Discharge Items Patient Disposition: Home - Self-Care Reason For Visit: SEPSIS, NEUTROPENIA Discharge Diagnosis: Sepsis, wound infection Activity: Resume your previous activity Non-emergency contact: Primary Care Provider Call non-emergency contact if: you have any medication questions Follow-up/Referrals: Beatriz East MD [Primary Care Provider] - Diet: Regular Addtl Attending Provider Instructions: please make appointment to follow up with your regular PCP Pending Studies at Discharge: No Stand-Alone Forms: My MediCard, Smoking Cessation Medications and DC Order Prescriptions: New fluconazole 200 mg tablet 200 mg PO DAILY Qty: 7 0RF ciprofloxacin HCl 500 mg tablet 500 mg PO BID 10 Days Qty: 20 0RF amoxicillin-pot clavulanate [Augmentin] 500-125 mg tablet 1 tab PO BID 10 Days Qty: 20 0RF Continued pantoprazole 40 mg tablet,delayed release (DR/EC) 40 mg PO DAILY lactulose 10 gram/15 mL solution 20 g PO QID PRN (Reason: Constipation) pregabalin 75 mg capsule 75 mg PO TID Qty: 90 3RF Dakin's Solution 0.125 % solution 1 applic topical DAILY Qty: 473 5RF Rx Instructions: Apply Dakin's Solution to gauze and fluff into wound bed and cover with abd pad and secure with tape, perform wet to dry dressing daily. lidocaine HCl 4 % spray,non-aerosol See Rx Instructions topical .COMPLEX Qty: 104 5RF Rx Instructions: Apply spray prior to wound dressing changes and as needed for pain morphine 30 mg tablet extended release 30 mg PO Q12H Qty: 60 0RF ondansetron 8 mg tablet,disintegrating 8 mg PO Q8H PRN (Reason: Nausea) Qty: 90 3RF sennosides [Natural Senna Laxative] 8.6 mg tablet 8.6 mg PO BID Qty: 180 3RF oxycodone 10 mg tablet 20 mg PO Q6H PRN (Reason: pain) Xarelto 20 mg tablet 20 mg PO QDD Qty: 90 3RF acetaminophen 500 mg Tablet 1,000 mg PO Q6H PRN (Reason: Mild Pain (Scale Score 1-4)) lidocaine [Lidoderm] 5 % Adhesive Patch,Medicated 1 patch TOPICAL DAILY PRN (Reason: Pain) prochlorperazine maleate 10 mg tablet 10 mg PO Q8 PRN (Reason: Nausea) folic acid 1 mg tablet 1 mg PO DAILY docusate sodium 100 mg Tablet 100 mg PO BID PRN (Reason: Constipation) Discontinued amoxicillin-pot clavulanate 875-125 mg tablet 1 tab PO BID 10 Days Qty: 20 0RF doxycycline hyclate 100 mg capsule 100 mg PO BID 10 Days Qty: 20 0RF Discharge Orders: Discharge Order (Routine); Ordered 12/31/21 Ordered By: Ignacio Spears/Other Patient Handouts: What Are Pressure Injuries?, Preventing Pressure Injuries Admission Data Admit Date/Time: 12/23/21 20:55 Attending Provider: Ignacio Bynum Admit Provider: Gil Redmond Primary Care Provider: Beatriz East Other Providers: Gil Redmond ; Jhoan Cohen ; Osmany Augustin ; Porsha Padron ; [facility],Home Healthcare ; [facility]erral [facility] Other Interventions: Discharge Summary Assessment (RN) Last Done: 12/31/21 13:45 Coding Level of Care Code D/C DAY MANAGEMENT >30 MINS Diagnoses Acute respiratory failure with hypoxia J96.01 Malignant pleural effusion J91.0 Pressure injury of coccygeal region, unstageable L89.150 Wound infection T14.8XXA; L08.9 Antineoplastic chemotherapy induced anemia D64.81; T45.1X5A Constipation due to opioid therapy K59.03; T40.2X5A Chemotherapy induced neutropenia D70.1; T45.1X5A 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 Time Spent (min) 35
--- NOTE | 2022-01-08 08:25 | Coding Query ---
SEPSIS To promote full compliance with coding requirements relating to patient care, physician participation is requested in all cases of heel layer uncertainty. Please assist us with the question(s) below: In responding to this query, please exercise your independent professional judgement. The fact that a question is asked does not imply that any particular answer is desired or expected. We appreciate your clarification on this issue. Throughout the medical record, you have clearly documented a localized infection and your patient has clinical evidence of a generalized sepsis or severe sepsis. The term urosepsis is a nonspecific entity and is coded as an UTI. If the patient has sepsis, severe sepsis, from an urinary source or some other source, please clarify in your response below. The medical record reflects the following clinical findings: Pt adm with infected caccygeal pressure ulcer. Please check belwo, if applicable , the diagnosis that was treated during this Inpatient stay. Thank you . KING Monterroso [facility] ____ ( )Bacteremia (Nonspecific laboratory finding of bacteria in the blood) Specify Organism () Present on Admission ( ) Not present on admission ( ) Unable to clinically determine ( ) Septicemia (Systemic disease associated with the presence of pathogenic microorganisms in the blood): Specify Organism ( ) Present on Admission ( ) Not present on admission ( ) Unable to clinically determine ( x) Sepsis Specify Organism Specify Associated Condition/Diagnosis ( x) Present on Admission ( ) Not present on admission ( ) Unable to clinically determine ( ) Severe Sepsis (Sepsis associated with acute organ dysfunction) Specify Organism Specify Associated Condition/Diagnosis ( ) Present on Admission ( ) Not present on admission ( ) Unable to clinically determine ( ) Septic Shock (Severe sepsis with acute circulatory failure, unexplained by other causes) ( ) Present on Admission ( ) Not present on admission ( ) Unable to clinically determine ( ) Other, patient has: MTDD
== END 2021-12-31 14:52 | disposition home health service (06) | DRG 853 ==
LOC: ED 19:36 → 1E 20:55 → SUATTDRO 20:55 → 1E 23:00 → 4W 12-27 23:11